=== PATIENT | male | born 1935 | race Caucasian/White ===

== ENCOUNTER 2016-12-30 15:28 | Inpatient (IN) | payer MEDICARE ==
[2016-12-30] VITALS (7 sets, daily range): BP systolic 133–159; BP diastolic 67–88; PULSE 69–81; RESP 18–24; TEMP 96.5–97.8; O2SAT 85–97
[~2016-12-30] VITALS: Ht 180.3 cm; Wt 108.3 kg
[~2016-12-30 15:28] MED LIST: ACIP20TA19 PO; ASPI81 PO; CARV25TA OR; CLOP75 PO; GLUCTAB OR; GLYB1TAB51 PO; HYDR12.56 PO; ISOS30 PO; LORT5TAB PO; Losartan Potassium PO; SIMV80TA OR; ZOLP10TA3 PO
--- NOTE | 2016-12-30 16:11 | PD ---
HPI Chief Complaint: Respiratory Symptoms Time Seen by Provider: 15:59 Travel History International Travel<30 days: No Contact w/Intl Traveler<30days: No Traveled to known affect area: No History of Present Illness HPI 81-year-old male with history of CAD, CABG, CKD, hypertension, hyperlipidemia, sent in by his primary care physician for evaluation of shortness of breath. Patient reports having shortness of breath over the last month, worse over the last 7 days. He initially had cough productive of yellowish sputum, however his cough is currently nonproductive. He was seen by his primary care physician on 12/24 and started on Levaquin, prednisone, and Dulera inhaler. He was also evaluated by his tour manager Dr. Neville, who ordered a chest x-ray that was clear and an echo that showed mild concentric left ventricular hypertrophy with an EF of 64% with no regional wall motion abnormalities. Shortness of breath is at rest, worse with exertion. He denies chest pain. No history of DVT or PE. PFSH Past Medical History Arthritis: Yes Heart Rhythm Problems: Yes Cardiac Catheterization: Yes Cardiovascular Problems: Yes (BYPASS; HI; HTN) High Cholesterol: Yes Congestive Heart Failure: No Diabetes: Yes (DM) GERD: Yes Hypertension: Yes Musculoskeletal: Yes (RT. HIP BURSITIS) Respiratory: No Past Surgical History Abdominal Surgery: Yes (EXPL. LAP) Cardiac Surgery: Yes (CABG X 5 IN 1993) Coronary Artery Bypass Graft: Yes (5 CABG 1993) Genitourinary Surgery: Yes (PENILE IMPLANT) Other Surgery: Yes Social History Alcohol Use: No Tobacco Use: No Substance Use: No Allergies-Medications (Allergen,Severity, Reaction): Coded Allergies: celecoxib (Unverified Allergy, Severe, REFLUX, 11/19/16) zolpidem (Verified Allergy, Severe, "CAUSED TO ACT CRAZY", 12/30/16) furosemide (Verified Allergy, Unknown, 12/30/16) Reported Meds & Prescriptions Reported Meds & Active Scripts Active Reported Oxycodone (Oxycodone HCl) 5 Mg Cap 5 Mg PO Q4H PRN Zithromax Z-Rob (Azithromycin) 250 Mg Dspk 250 Mg PO DIRECTED 500 MG (2 tabs) day 1, then 1 tab days 2-5. Tamsulosin (Tamsulosin HCl) 0.4 Mg Cap 0.4 Mg PO EVENING Promethazine-Codeine Liq 6.25-10 Mg/5 Ml Syrp 10 Ml PO Q6H PRN Nitroglycerin SL (Nitroglycerin) 0.4 Mg Subl 0.4 Mg SL DIRECTED PRN ONE TABLET UNDER THE TONGUE NEEDED FOR CHEST PAIN, MAY REPEAT EVERY FIVE MINUTES FOR A TOTAL OF 3 DOSES OR CALL 911 IF NO RELIEF Multiple Vitamin 1 Tab 1 Tab PO HS Metformin (Metformin HCl) 1,000 Mg Tab 1,000 Mg PO BIDPC With meals Losartan (Losartan Potassium) 50 Mg Tab 50 Mg PO HS Krill Oil Magnolia-3 500 mg (Krill Oil) 500 Mg-115 Mg-30 Mg-64 Mg-167 Mg Cap 1 Tab PO DAILY Isosorbide Mononitrate ER (Isosorbide Mononitrate) 60 Mg Tab 60 Mg PO BID Hydrocodone-Acetaminophen 5-325 mg Tab 1 Tab PO Q6H PRN Hydrochlorothiazide 12.5 Mg Cap 12.5 Mg PO HS Glucosamine-Chondroitin 500-400 Mg Tab 1 Tab PO DAILY Glimepiride 4 Mg Tab 4 Mg PO BIDAC Garlic Oil 1000 (Garlic) 1,000 Mg Cap 1 Cap PO HS Dulera 120 Act Inh (Mometasone-Formoterol 120 Act Inh) 200-5 Mcg/Act Inh 2 Puff INH BID Culturelle (Lactobacillus Rhamnosus (GG)) 10 Billion Cell Cap 1 Cap PO DAILY [Cranberry] 500 Mg PO DAILY Coreg (Carvedilol) 25 Mg Tab 25 Mg PO BID Coq-10 Tr (Coenzyme Q10 (Ubidecarenone)) 100 Mg Cap 2 Tab PO EVENING Clopidogrel (Clopidogrel Bisulfate) 75 Mg Tab 75 Mg PO HS Belsomra (Suvorexant) 20 Mg Tab 20 Mg PO HS Atorvastatin (Atorvastatin Calcium) 80 Mg Tab 80 Mg PO HS Aspirin EC (Aspirin) 81 Mg Tabdr 81 Mg PO HS Aciphex (Rabeprazole Sodium) 20 Mg Tab 20 Mg PO BID PRN Review of Systems Except as stated in HPI: all other systems reviewed are Neg Physical Exam Narrative GENERAL: Well-developed, well-nourished, awake, alert, slightly tachypneic, speaking full sentences. SKIN: Focused skin assessment warm/dry. HEAD: Atraumatic. Normocephalic. EYES: Pupils equal and round. No scleral icterus. No injection or drainage. ENT: Mucous membranes pink and moist. NECK: Trachea midline. No JVD. CARDIOVASCULAR: Regular rate and rhythm. No murmur appreciated. RESPIRATORY: No accessory muscle use. Slightly tachypneic. Speaking full sentences. Coarse breath sounds throughout the right lung ulloa. No wheezes. Breath sounds equal bilaterally. GASTROINTESTINAL: Abdomen soft, non-tender, nondistended. Hepatic and splenic margins not palpable. MUSCULOSKELETAL: No obvious deformities. No clubbing. No cyanosis. Mild bilateral lower extremity edema. NEUROLOGICAL: Awake and alert. No obvious cranial nerve deficits. Motor grossly within normal limits. Normal speech. PSYCHIATRIC: Appropriate mood and affect; insight and judgment normal. Data Data Last Documented VS Vital Signs Date Time Temp Pulse Resp B/P (MAP) Pulse Ox O2 Delivery O2 Flow Rate FiO2 12/30/16 17:50 74 22 144/67 (92) 96 Nasal Cannula 2.00 12/30/16 15:58 97.8 Orders Orders Complete Blood Count With Diff (12/30/16 16:04) Comprehensive Metabolic Panel (12/30/16 16:04) B-Type Natriuretic Peptide (12/30/16 16:04) Act Partial Throm Time (Ptt) (12/30/16 16:04) Prothrombin Time / Inr (Pt) (12/30/16 16:04) Ckmb (Isoenzyme) Profile (12/30/16 16:04) Troponin I (12/30/16 16:04) Blood Culture (12/30/16 16:04) Iv Access Insert/Monitor (12/30/16 16:04) Ecg Monitoring (12/30/16 16:04) Oximetry (12/30/16 16:04) Oxygen Administration (12/30/16 16:04) Chest, Single Ap (12/30/16 16:04) Sodium Chloride 0.9% Flush (Ns Flush) (12/30/16 16:15) Influenzae A/B Antigen (12/30/16 16:04) CKMB (12/30/16 16:18) CKMB% (12/30/16 16:18) D-Dimer (12/30/16 17:52) Us Leg Venous Doppler Bilat (12/30/16 ) Methylprednisolone So Succ Inj (Solumedr (12/30/16 19:30) Duoneb Q15min X 3 Doses (12/30/16 19:30) Labs Laboratory Tests Test 12/30/16 15:40 12/30/16 16:18 D-Dimer Quantitative (PE/DVT) 0.32 MG/L FEU White Blood Count 8.9 TH/MM3 Red Blood Count 5.22 MIL/MM3 Hemoglobin 13.6 GM/DL Hematocrit 42.4 % Mean Corpuscular Volume 81.2 FL Mean Corpuscular Hemoglobin 26.0 PG Mean Corpuscular Hemoglobin Concent 32.0 % Red Cell Distribution Width 13.4 % Platelet Count 157 TH/MM3 Mean Platelet Volume 9.5 FL Neutrophils (%) (Auto) 75.8 % Lymphocytes (%) (Auto) 15.9 % Monocytes (%) (Auto) 5.6 % Eosinophils (%) (Auto) 2.2 % Basophils (%) (Auto) 0.5 % Neutrophils # (Auto) 6.8 TH/MM3 Lymphocytes # (Auto) 1.4 TH/MM3 Monocytes # (Auto) 0.5 TH/MM3 Eosinophils # (Auto) 0.2 TH/MM3 Basophils # (Auto) 0.0 TH/MM3 CBC Comment DIFF FINAL Differential Comment Prothrombin Time 11.2 SEC Prothromb Time International Ratio 1.0 RATIO Activated Partial Thromboplast Time 32.2 SEC Blood Urea Nitrogen 24 MG/DL Creatinine 1.40 MG/DL Random Glucose 177 MG/DL Total Protein 6.9 GM/DL Albumin 3.7 GM/DL Calcium Level 8.4 MG/DL Alkaline Phosphatase 69 U/L Aspartate Amino Transf (AST/SGOT) 17 U/L Alanine Aminotransferase (ALT/SGPT) 23 U/L Total Bilirubin 0.6 MG/DL Sodium Level 140 MEQ/L Potassium Level 4.0 MEQ/L Chloride Level 102 MEQ/L Carbon Dioxide Level 30.3 MEQ/L Anion Gap 8 MEQ/L Estimat Glomerular Filtration Rate 49 ML/MIN Total Creatine Kinase 101 U/L Creatine Kinase MB 3.2 NG/ML Troponin I 0.02 NG/ML B-Type Natriuretic Peptide 117 PG/ML [facility] Medical Decision Making Medical Screen Exam Complete: Yes Emergency Medical Condition: Yes Medical Record Reviewed: Yes Interpretation(s) EKG: Sinus, rate 78 with frequent PVCs and bigeminy, RBBB, LAFB, nonspecific inferior T waves Differential Diagnosis ACS, PE, pulmonary edema, pneumonia, bronchitis, pneumothorax Narrative Course Initial vital signs show heart rate 77, blood pressure 133/71, pulse ox 85% on room air, oral temp of 97.8F. CBC is unremarkable. CMP is remarkable for BUN 24, creatinine 1.4, GFR 49 which is around his baseline, random glucose 177. Troponin is 0.02. BNP is 117. Influenza is negative. Chest x-ray: Stable postsurgical features, no acute abnormality or significant interval change. CT pulmonary angiogram was ordered, however when the patient was laid flat on the table she became short of breath and stated that he was not able to tolerate the exam. He understands the risks of refusing this exam. D-dimer and bilateral lower extremity duplex ordered at this time. D-dimer is negative at 0.32. Bilateral lower extremity duplex is negative for DVT. Case discussed with on-call [facility] hospitalist Dr. Boss who will admit the patient to his service for further treatment and evaluation of hypoxia and dyspnea. Plan is to give him 3 DuoNeb treatments and IV Solu-Medrol here in the emergency department. Patient and the patient's significant other were made aware of all findings and plan for admission. Diagnosis Primary Impression: Hypoxia Additional Impression: Dyspnea Qualified Codes: R06.00 - Dyspnea, unspecified Admitting Information Admitting Physician Requests: Admit Thien Friend MD Dec 30, 2016 16:11
[2016-12-30] MEDS ORDERED: SODIUM CHLORIDE 0.9% FLUSH 10 ML FLUSH IVF PRN (16:15)
[2016-12-30 16:38] LABS: AUTOMATED NEUTROPHIL # 6.8 TH/MM3 (1.8-7.7); BASOPHIL % 0.5 % (0.0-2.0); EOSINOPHIL # 0.2 TH/MM3 (0-0.4); EOSINOPHIL % 2.2 % (0.0-4.0); HEMATOCRIT 42.4 % (39.0-51.0); HEMO FLAGS DIFF FINAL; LYMPH % 15.9 % (9.0-44.0); LYMPHOCYTE # 1.4 TH/MM3 (1.0-4.8); MEAN CELL VOLUME 81.2 FL (80.0-100.0); MONO % 5.6 % (0.0-8.0); NEUT % 75.8 % (16.0-70.0); PLATELET COUNT 157 TH/MM3 (150-450); RED BLOOD COUNT 5.22 MIL/MM3 (4.50-5.90); RED CELL DISTRIBUTION WIDTH 13.4 % (11.6-17.2); WHITE BLOOD COUNT 8.9 TH/MM3 (4.0-11.0)
[2016-12-30] MEDS ORDERED: HYDR-3516 PO (16:40)
[2016-12-30] MEDS ORDERED: LOSA50TA PO (16:40)
[2016-12-30] MEDS ORDERED: KRIL1CAP10 PO (16:40)
[2016-12-30] MEDS ORDERED: ATOR1TAB18 PO (16:40)
[2016-12-30] MEDS ORDERED: GARL1000 PO (16:40)
[2016-12-30] MEDS ORDERED: ASPI81TA11 PO (16:40)
[2016-12-30] MEDS ORDERED: OXYC1CAP PO (16:40)
[2016-12-30] MEDS ORDERED: MULTTAB67 PO (16:40)
[2016-12-30] MEDS ORDERED: ZITHTAB PO (16:40)
[2016-12-30] MEDS ORDERED: COQ-100C5 PO (16:40)
[2016-12-30] MEDS ORDERED: SUVO1TAB4 PO (16:40)
[2016-12-30] MEDS ORDERED: PROM6.256 PO (16:40)
[2016-12-30] MEDS ORDERED: TAMS0.4C4 PO (16:40)
[2016-12-30] MEDS ORDERED: ACIP20TA6 PO (16:40)
[2016-12-30] MEDS ORDERED: GLUC500T4 PO (16:40)
[2016-12-30] MEDS ORDERED: GLIM4TAB PO (16:40)
[2016-12-30] MEDS ORDERED: CRANPOW2 PO (16:40)
[2016-12-30] MEDS ORDERED: ISOS60TA PO ×2 (16:40→20:19)
[2016-12-30] MEDS ORDERED: CULT10CA4 PO (16:40)
[2016-12-30] MEDS ORDERED: NITR1SUB3 SL (16:40)
[2016-12-30] MEDS ORDERED: DULE200A INH (16:40)
[2016-12-30] MEDS ORDERED: CORE25TA PO (16:40)
[2016-12-30] MEDS ORDERED: HYDR12.57 PO (16:40)
[2016-12-30] MEDS ORDERED: METF1000 PO (16:40)
[2016-12-30] MEDS ORDERED: CLOP75TA PO (16:40)
[2016-12-30 16:48] LABS: CHLORIDE 102 MEQ/L (98-107); SODIUM (NA) 140 MEQ/L (136-145)
[2016-12-30 16:52] LABS: ANION GAP 8 MEQ/L (5-15); APTT (PATIENT) 32.2 SEC (24.3-30.1); BICARBONATE 30.3 MEQ/L (21.0-32.0); BLOOD UREA NITROGEN 24 MG/DL (7-18); PROTHROMBIN TIME - PATIENT 11.2 SEC (9.8-11.6)
[2016-12-30 16:55] LABS: ALT (GPT) 23 U/L (12-78); AST (GOT) 17 U/L (15-37); GLOMERULAR FILTRATION RATE 49 ML/MIN (>89)
[2016-12-30 16:57] LABS: TOTAL BILIRUBIN ADULT 0.6 MG/DL (0.2-1.0)
[2016-12-30 16:58] LABS: ALKALINE PHOSPHATASE 69 U/L (45-117); CREATINE KINASE 101 U/L (39-308)
[2016-12-30 17:10] LABS: CKMB 3.2 NG/ML (0.5-3.6)
--- NOTE | 2016-12-30 17:11 | RADRPT ---
EXAM DATE/TIME: 12/30/2016 16:19 [facility] COMPARISON: CHEST PA & LAT, February 09, 2014, 23:02. INDICATIONS : Shortness of breath. MEDICAL HISTORY : Hypertension. Myocardial infarction. SURGICAL HISTORY : CABG. ENCOUNTER: Initial ACUITY: 1 day PAIN SCORE: 0/10 LOCATION: Bilateral chest FINDINGS: Stable median sternotomy wires and postsurgical changes of prior CABG. Lungs are slightly hypoaerated with mild interstitial prominence. Cardiomediastinal contours are within normal limits given portabl e technique. Bony thorax is intact. CONCLUSION: 1. Stable postsurgical features 2. No acute abnormality or significant interval change. Tray Lara MD on December 30, 2016 at 17:09 Board Certified Radiologist. This report was verified electronically.
--- NOTE | 2016-12-30 19:08 | RADRPT ---
EXAM DATE/TIME: 12/30/2016 18:42 [facility] COMPARISON: No previous studies available for comparison. INDICATIONS : Shortness of breath. Bilateral leg swelling. MEDICAL HISTORY : [place]. HTN. CAD. Hypercholesterol. Diabetic. SURGICAL HISTORY : CABG. Cardiac catheterization. Exploratory lap. Penile implant. ENCOUNTER: Initial ACUITY: 1 month PAIN SCORE: 4/10 LOCATION: Bilateral leg. TECHNIQUE: Venous ultrasound of the left and right leg was performed from the inguinal ligament to the proximal calf. Real-time, color Doppler and spectral tracing, compression and augmentation techniques were us ed. FINDINGS: RIGHT LEG: There is normal compressibility of the deep venous system from the inguinal region to the proximal ca lf. No echogenic clot is seen in the lumen of the common femoral, femoral, popliteal, and posterior tibial veins. There is a normal response of the venous system to proximal and distal augmentation an d respiration. LEFT LEG: There is normal compressibility of the deep venous system from the inguinal region to the proximal ca lf. No echogenic clot is seen in the lumen of the common femoral, femoral, popliteal, and posterior tibial veins. There is a normal response of the venous system to proximal and distal augmentation an d respiration. CONCLUSION: No DVT is identified with either lower extremity. Kenney Franklin MD on December 30, 2016 at 19:07 Board Certified Radiologist. This report was verified electronically.
[2016-12-30] MEDS ORDERED: methylPREDNISolone SOD SUCC 125 MG/2 ML VIAL IV PUSH ONE (19:30)
[2016-12-30] MEDS: RESP: ALBUTEROL 2.5 MG/IPRATROPIUM 0.5 MG NEB (SCH) INH ×2 (19:36→19:37)
[2016-12-30] MEDS ORDERED: COENZYME Q10 PO SCH (20:15)
[2016-12-30] MEDS ORDERED: ACETAMINOPHEN/HYDROcodone 325 MG/5 MG TAB PO PRN (20:15)
[2016-12-30] MEDS ORDERED: PROMETHAZINE/CODEINE 6.25 MG/10 MG/5 ML CUP PO PRN (20:15)
[2016-12-30] MEDS ORDERED: BELSOMRA 20 MG PO SCH (21:00)
[2016-12-30] MEDS ORDERED: ENOXAPARIN SODIUM 40 MG/0.4 ML SYRINGE SQ SCH (21:00)
[2016-12-30] MEDS ORDERED: ENOXAPARIN SODIUM 30 MG/0.3 ML SYRINGE SQ SCH (21:00)
[2016-12-30] MEDS ORDERED: PANTOPRAZOLE SOD 40 MG DELAYED RELEASE TAB PO ONE (21:00)
--- NOTE | 2016-12-30 22:06 | MH ---
cc: FLORENCIA MARTINEZ M.D. DATE OF ADMISSION 12/30/2016 ADMITTING DIAGNOSES 1. Persistent bronchitis. 2. Hypoxia. 3. Possible underlying chronic obstructive pulmonary disease. 4. Coronary artery disease with prior myocardial infarction in 2013 and prior coronary artery bypass grafting. 5. Type 2 diabetes mellitus. 6. Stage III chronic kidney disease. 7. Hypertension. 8. Hyperlipidemia. 9. Gastroesophageal reflux disease. 10. Benign prostatic hypertrophy. 11. Aortic sclerosis without stenosis on 2-D echocardiogram 11/04/2016. 12. Osteoarthritis. 13. Lumbar disc disease - stenosis. PERTINENT HISTORY This is a pleasant 86-year-old white male started two weeks ago with a cough, slight sore throat, maybe slight runny nose. The had had some sort of a recent infection as well. He was put on some Zithromax that he took for about five days but did not get any improvement. He saw his primary care physician Dr. Smalls around the 24 of December and was put on Levaquin. Was given a Medrol Dosepak but he only took it for one day because of GI side effects. He was using some Dulera inhaler two puffs twice a day that his had had and his doctor gave him some as well. He presented to our office today and his sats were in the 80s. He was still coughing. He was sent here for further evaluation of his hypoxia. He has not smoked in several years but did smoke three packs a day for 30 years prior to quitting. He has never been diagnosed with any asthma, COPD or pneumonia. He has never had congestive heart failure. He states that he does sleep sitting up in a chair but has been doing this for a long time. He states that it is because he has problems with his arthritis. Here in the last week or so he would get some shortness of breath when he would lay flat. In the emergency department they were going to do a CTA of the chest, however, he declined that because when he went to lay down he would get short of breath. He did have a D-dimer that was normal and an Doppler venous ultrasound of both lower extremities that was negative for any DVT. His BNP was not at a significantly elevated level. He is being admitted for oxygen therapy. We are going to give him some DuoNeb treatments and some IV steroids. He has not really responded any to Levaquin or Zithromax so it is possible if he has an underlying infection it is likely to be viral, so I am not going to put him on any antibiotic at this time. PAST MEDICAL HISTORY 1. He has coronary artery disease with the coronary artery bypass grafting in 1993. 2. He had a cardiac catheterization on 02/10/2014 that showed patent MEDRANO and right internal mammary graft to the LAD and right coronary artery, respectively. He had occluded saphenous vein Y grafts to the ramus intermedius, diagonal branch and posterior ventricular branches of the circumflex. He has been followed by Dr. Negron and just treated with medical management for any angina. He has had no congestive heart failure. 3. He has type 2 diabetes mellitus and takes oral agents for this. 4. He has hypertension. 5. Hyperlipidemia. 6. Gastroesophageal reflux disease. 7. He has benign prostatic hypertrophy. 8. Erectile dysfunction. 9. Osteoarthritis. 10. He has had lumbar disc disease and stenosis. 11. He had a colonoscopy on 11/14/2014 with a polyp and an EGD that was normal on 11/14/2014. He denies any prior lung disease. No stroke or seizures. PAST SURGICAL HISTORY 1. He had an exploratory laparotomy for possible small bowel obstruction but when they opened him up they did not find anything significant. 2. He has had coronary artery bypass as mentioned. 3. Colonoscopy and EGD as mentioned. ALLERGIES HE HAD SOME ABDOMINAL PAIN WITH CELEBREX. IT IS WRITTEN DOWN THAT HE HAS A PROBLEM WITH RANEXA. MEDICATIONS He is on: 1. Atorvastatin 80 milligrams daily. 2. Aspirin 81 milligrams daily. 3. Plavix 75 milligrams daily. 4. Co-Q10 200 micrograms daily. 5. Coreg ( carvedilol ) 25 milligrams twice a day. 6. He has been on Dulera inhaler 200 - 5 two puffs twice a day. 7. Glimepiride 4 milligrams twice a day. 8. Metformin 1000 milligrams twice a day. 9. Hydrochlorothiazide 12.5 milligrams once a day. 10. Isosorbide mononitrate extended release 60 milligrams once a day. 11. Losartan 50 milligrams, he takes one-half twice a day. 12. Tamsulosin 0.4 milligrams daily. 13. Aciphex 20 milligrams daily. 14. He takes Belsomra 10 milligrams at night for sleep. 15. He has hydrocodone / APAP 5/500 one as needed for pain. He does not take it daily. 16. He uses Krill oil 500 milligrams daily. 17. Glucosamine daily. 18. Multivitamin daily. FAMILY HISTORY His mother at 67 of brain cancer. Father at 51 of stomach cancer. Brother had colon cancer. 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 He is . He does not use alcohol. He quit smoking several years ago, smoked up to three packs a day for 30 years. REVIEW OF SYSTEMS GENERAL: No fever or chills. HEENT: No headache. He has just had minimal drainage from his nose occasionally. Just minimal sore throat. No trouble swallowing. CARDIOVASCULAR: No chest pain. No palpitations. He does get some shortness of breath when he lays flat. PULMONARY: He has a cough as mentioned. Occasional wheezing as well. GASTROINTESTINAL: No current nausea or vomiting. He did get some loose bowel movements with the antibiotics. No constipation or rectal bleeding. GENITOURINARY: He gets up two to three times a night to urinate. No dysuria. EXTREMITIES: He has chronic swelling of both feet which he has had for a long time. He gets arthritis in his hips and shoulders and some low back pain at times. SKIN: Without rash. NEUROLOGIC: No focal weakness, sensory loss or confusion. PHYSICAL EXAMINATION GENERAL: Pleasant obese, white male in no acute distress. VITAL SIGNS: His blood pressure has ranged from 133/71 to 155/84. His O2 saturation on room air when he first came in to the emergency department was 85%. It has run around 95-97% on 2 liters. His pulse has been in the 70s and regular. Respiratory rate 18-24. HEENT: Tympanic membranes are clear. Nose negative. Mouth without inflammation or lesion. NECK: Without bruit. No JVD. CARDIOVASCULAR: Heart regular rate and rhythm with no obvious murmur. LUNGS: He just has some slight coarse rhonchi that I hear primarily in the left base. No rales. No wheezes. ABDOMEN: Soft. Obese. Nontender. EXTREMITIES: He has some 1+ edema both ankles. No calf tenderness. SKIN: Without rash. NEUROLOGIC: Alert and oriented times three. Cranial nerves intact. Motor and sensory intact. LABORATORY DATA His BUN is 24. Creatinine 1.4. GFR 49. This apparently is around his baseline. AST, ALT, alkaline phosphatase, CK, CKMB, troponin normal. BNP was 117. Total protein and albumin normal. Potassium is 4.0, chloride 102, sodium 140. D-dimer was normal at 0.32. INR was 1.0. White count was normal at 8.9 with a hemoglobin of 13.6, platelets are 157,000. IMAGING A chest x-ray showed no acute process. Doppler venous ultrasound of the lower extremities showed no deep venous thrombosis. ASSESSMENT As noted. PLAN I am going to put him on DuoNeb nebulizer treatments and some IV Solu-Medrol. I am going to consult pulmonary for their opinion. I ordered some pulmonary function testing to look for any underlying COPD in view of his long smoking history and hypoxia. We will just put him on a low dose of Lovenox, he is already on for DVT prophylaxis. He is already on aspirin and Plavix for his coronary artery disease. He will be maintained on his medications for now. MD ELEUTERIO Carrillo/KASSIDY /8:22 PM /8:56 PM
[2016-12-30] MEDS: ATORVASTATIN 40 MG TAB PO SCH (22:45)
[2016-12-30] MEDS: LOSARTAN 50 MG TAB PO SCH (22:45)
[2016-12-30] MEDS: HYDROCHLOROTHIAZIDE 12.5 MG CAP PO SCH (22:45)
[2016-12-30] MEDS: MULTIVITAMIN TAB PO SCH (22:45)
[2016-12-30] MEDS: ASPIRIN EC 81 MG TABEC PO SCH (22:46)
[2016-12-30] MEDS: CLOPIDOGREL 75 MG TAB PO SCH (22:46)
[2016-12-30] MEDS: CARVEDILOL 12.5 MG TAB PO SCH (22:46)
[2016-12-31] VITALS (7 sets, daily range): BP systolic 123–170; BP diastolic 70–93; PULSE 73–88; RESP 18–22; TEMP 95.3–97; O2SAT 93–95
[2016-12-31] MEDS: NITROGLYCERIN 0.4 MG SL 25 TABS/BTL SL PRN ×3 (00:24→19:28)
[2016-12-31] MEDS: methylPREDNISolone SOD SUCC 40 MG/1 ML VIAL IV PUSH SCH ×3 (04:08→20:19)
[2016-12-31 06:53] LABS: POTASSIUM 4.1 MEQ/L (3.5-5.1)
--- NOTE | 2016-12-31 06:54 | HHI.PR ---
Subjective Remarks He states his breathing is a little better. Still has cough. Objective Vitals Vital Signs Date Time Temp Pulse Resp B/P (MAP) Pulse Ox O2 Delivery O2 Flow Rate FiO2 12/31/16 04:00 96.7 73 18 148/81 (103) 93 12/31/16 04:00 96.7 73 18 148/81 (103) 93 12/30/16 21:11 96.5 81 20 159/88 (111) 95 12/30/16 20:50 12/30/16 20:33 74 18 153/82 (105) 95 Nasal Cannula 2.00 12/30/16 19:35 95 Nasal Cannula 2.00 12/30/16 19:20 69 18 97 Nasal Cannula 2.00 12/30/16 19:20 69 18 155/84 (107) 97 Nasal Cannula 2.00 12/30/16 17:50 74 22 144/67 (92) 96 Nasal Cannula 2.00 12/30/16 16:29 24 95 Nasal Cannula 2.00 12/30/16 16:25 95 Nasal Cannula 2.00 12/30/16 16:22 74 24 95 Nasal Cannula 2.00 12/30/16 15:58 97.8 77 24 133/71 (91) 85 Result Diagram: 12/30/16 1618 12/30/16 1618 Other Results Laboratory Tests Test 12/30/16 15:40 12/30/16 16:18 12/31/16 04:55 D-Dimer Quantitative (PE/DVT) 0.32 MG/L FEU White Blood Count 8.9 TH/MM3 Red Blood Count 5.22 MIL/MM3 Hemoglobin 13.6 GM/DL Hematocrit 42.4 % Mean Corpuscular Volume 81.2 FL Mean Corpuscular Hemoglobin 26.0 PG Mean Corpuscular Hemoglobin Concent 32.0 % Red Cell Distribution Width 13.4 % Platelet Count 157 TH/MM3 Mean Platelet Volume 9.5 FL Neutrophils (%) (Auto) 75.8 % Lymphocytes (%) (Auto) 15.9 % Monocytes (%) (Auto) 5.6 % Eosinophils (%) (Auto) 2.2 % Basophils (%) (Auto) 0.5 % Neutrophils # (Auto) 6.8 TH/MM3 Lymphocytes # (Auto) 1.4 TH/MM3 Monocytes # (Auto) 0.5 TH/MM3 Eosinophils # (Auto) 0.2 TH/MM3 Basophils # (Auto) 0.0 TH/MM3 CBC Comment DIFF FINAL Differential Comment Prothrombin Time 11.2 SEC Prothromb Time International Ratio 1.0 RATIO Activated Partial Thromboplast Time 32.2 SEC Blood Urea Nitrogen 24 MG/DL Creatinine 1.40 MG/DL Random Glucose 177 MG/DL Total Protein 6.9 GM/DL Albumin 3.7 GM/DL Calcium Level 8.4 MG/DL Alkaline Phosphatase 69 U/L Aspartate Amino Transf (AST/SGOT) 17 U/L Alanine Aminotransferase (ALT/SGPT) 23 U/L Total Bilirubin 0.6 MG/DL Sodium Level 140 MEQ/L Potassium Level 4.0 MEQ/L Chloride Level 102 MEQ/L Carbon Dioxide Level 30.3 MEQ/L Anion Gap 8 MEQ/L Estimat Glomerular Filtration Rate 49 ML/MIN Total Creatine Kinase 101 U/L Creatine Kinase MB 3.2 NG/ML Troponin I 0.02 NG/ML B-Type Natriuretic Peptide 117 PG/ML Imaging Last Impressions Chest X-Ray 12/30/16 1604 Signed Impressions: Service Date/Time: Friday, December 30, 2016 16:19 - CONCLUSION: 1. Stable postsurgical features 2. No acute abnormality or significant interval change. Tray Lara MD Lower Extremity Ultrasound 12/30/16 0000 Signed Impressions: Service Date/Time: Friday, December 30, 2016 18:42 - CONCLUSION: No DVT is identified with either lower extremity. Kenney Franklin MD Objective Remarks Exam: Pleasant white male in no distress. HEENT: Pupils equal, no scleral icterus, mouth negative Neck :No JVD Lungs: rhonchi in the bases Heart: RRR Abdomen: Soft, nontender Extremities: 1 + edema (chronic) Neuro: alert, oriented A/P Assessment and Plan Assessment: --Hypoxia--stable on oxygen --Persistent bronchitis --Possible underlying COPD in view of his 90 pack year smoking history prior to quitting --Coronary artery disease with prior CABG and some occluded grafts on cath done Mar 2014 --Hyperlipidemia --Hypertension --Type 2 diabetes mellitus --Stage 3 CKD --GERD --Osteoarthritis Plan: --Continue Duonebs treatments and IV Solu-Medrol --Pulmonary consulted --He declined CTA of the chest and VQ scan last night in the ER --PFT's ordered to assess for COPD --Will get case management consult because he will need a nebulizer and oxygen when he is discharged. Yoni Boss MD Dec 31, 2016 06:54
[2016-12-31 06:59] LABS: BICARBONATE 29.7 MEQ/L (21.0-32.0)
[2016-12-31] MEDS: GLIMEPIRIDE 4 MG TAB PO SCH ×2 (08:10→16:55)
[2016-12-31] MEDS: ISOSORBIDE MONONITRATE 60 MG TAB PO SCH (08:10)
[2016-12-31] MEDS ORDERED: NON-FORMULARY DRUG (Glucosamine-Chondroitin 1 TAB) PO SCH (09:00)
[2016-12-31] MEDS ORDERED: KRILL OIL PO SCH (09:00)
[2016-12-31] MEDS: TAMSULOSIN HCL 0.4 MG CAP PO SCH (09:01)
[2016-12-31] MEDS: metFORMIN HCL 500 MG TAB PO SCH ×2 (09:01→18:19)
[2016-12-31] MEDS: CARVEDILOL 12.5 MG TAB PO SCH ×2 (09:01→20:18)
[2016-12-31] MEDS: RESP: ALBUTEROL 2.5 MG/IPRATROPIUM 0.5 MG NEB (SCH) NEB ×3 (09:30→20:56)
--- NOTE | 2016-12-31 13:42 | EKG ---
Date Performed: 12/30/2016 Time Performed: 15:39:30 PTAGE: 81 years EKG: Sinus rhythm WITH FREQUENT VENTRICULAR PREMATURE COMPLEXES IN A BIGEMINAL PATTERN RIGHT BUNDLE BRANCH BLOCK LEFT ANTERIOR FASCICULAR BLOCK ABNORMAL ECG INTERPRETATION BASED ON A DEFAULT AGE OF 41 YEARS PREVIOUS TRACING 02/11/2014 Ventricular bigeminy is new since the prior tracing. DOCTOR: Melvin Ma Interpretating Date/Time 12/31/2016 13:52:06
[2016-12-31] MEDS: MULTIVITAMIN TAB PO SCH (20:17)
[2016-12-31] MEDS: ATORVASTATIN 40 MG TAB PO SCH (20:17)
[2016-12-31] MEDS: ASPIRIN EC 81 MG TABEC PO SCH (20:17)
[2016-12-31] MEDS: HYDROCHLOROTHIAZIDE 12.5 MG CAP PO SCH (20:18)
[2016-12-31] MEDS: LOSARTAN 50 MG TAB PO SCH (20:18)
[2016-12-31] MEDS: ENOXAPARIN SODIUM 40 MG/0.4 ML SYRINGE SQ SCH (20:19)
[2016-12-31] MEDS: CLOPIDOGREL 75 MG TAB PO SCH (20:19)
[2017-01-01] VITALS (9 sets, daily range): BP systolic 119–162; BP diastolic 75–88; PULSE 65–86; RESP 18–22; TEMP 95.8–97.8; O2SAT 93–97
[2017-01-01] MEDS: methylPREDNISolone SOD SUCC 40 MG/1 ML VIAL IV PUSH SCH ×2 (04:24→11:48)
[2017-01-01] MEDS: ISOSORBIDE MONONITRATE 60 MG TAB PO SCH (06:17)
[2017-01-01] MEDS: GLIMEPIRIDE 4 MG TAB PO SCH ×2 (06:17→15:56)
--- NOTE | 2017-01-01 07:19 | HHI.PR ---
Subjective Remarks He states his breathing is a little better. Pulmonary yet to see the patient yet. Objective Vitals Vital Signs Date Time Temp Pulse Resp B/P (MAP) Pulse Ox O2 Delivery O2 Flow Rate FiO2 01/01/17 04:00 97.8 68 18 162/78 (106) 94 01/01/17 00:00 95.8 86 22 154/86 (108) 94 12/31/16 21:00 95 Nasal Cannula 2.00 12/31/16 20:00 95.3 84 20 170/93 (118) 94 12/31/16 20:00 88 12/31/16 19:28 94 Nasal Cannula 2.00 12/31/16 16:53 2.00 12/31/16 16:00 97.0 75 22 130/75 (93) 94 12/31/16 12:00 97.0 73 22 123/70 (87) 94 12/31/16 09:33 94 Nasal Cannula 2.00 12/31/16 08:00 95.7 86 22 151/82 (105) 93 Result Diagram: 12/30/16 1618 12/31/16 0455 Other Results Laboratory Tests Test 12/30/16 15:40 12/30/16 16:18 12/31/16 04:55 D-Dimer Quantitative (PE/DVT) 0.32 MG/L FEU White Blood Count 8.9 TH/MM3 Red Blood Count 5.22 MIL/MM3 Hemoglobin 13.6 GM/DL Hematocrit 42.4 % Mean Corpuscular Volume 81.2 FL Mean Corpuscular Hemoglobin 26.0 PG Mean Corpuscular Hemoglobin Concent 32.0 % Red Cell Distribution Width 13.4 % Platelet Count 157 TH/MM3 Mean Platelet Volume 9.5 FL Neutrophils (%) (Auto) 75.8 % Lymphocytes (%) (Auto) 15.9 % Monocytes (%) (Auto) 5.6 % Eosinophils (%) (Auto) 2.2 % Basophils (%) (Auto) 0.5 % Neutrophils # (Auto) 6.8 TH/MM3 Lymphocytes # (Auto) 1.4 TH/MM3 Monocytes # (Auto) 0.5 TH/MM3 Eosinophils # (Auto) 0.2 TH/MM3 Basophils # (Auto) 0.0 TH/MM3 CBC Comment DIFF FINAL Differential Comment Prothrombin Time 11.2 SEC Prothromb Time International Ratio 1.0 RATIO Activated Partial Thromboplast Time 32.2 SEC Blood Urea Nitrogen 24 MG/DL 27 MG/DL Creatinine 1.40 MG/DL 1.20 MG/DL Random Glucose 177 MG/DL 259 MG/DL Total Protein 6.9 GM/DL Albumin 3.7 GM/DL Calcium Level 8.4 MG/DL 8.8 MG/DL Alkaline Phosphatase 69 U/L Aspartate Amino Transf (AST/SGOT) 17 U/L Alanine Aminotransferase (ALT/SGPT) 23 U/L Total Bilirubin 0.6 MG/DL Sodium Level 140 MEQ/L 139 MEQ/L Potassium Level 4.0 MEQ/L 4.1 MEQ/L Chloride Level 102 MEQ/L 102 MEQ/L Carbon Dioxide Level 30.3 MEQ/L 29.7 MEQ/L Anion Gap 8 MEQ/L 7 MEQ/L Estimat Glomerular Filtration Rate 49 ML/MIN 58 ML/MIN Total Creatine Kinase 101 U/L Creatine Kinase MB 3.2 NG/ML Troponin I 0.02 NG/ML B-Type Natriuretic Peptide 117 PG/ML Respiratory walk test yesterday done and his O2 sat was 88% at rest so the walk portion was not done. Imaging Last Impressions Chest X-Ray 12/30/16 1604 Signed Impressions: Service Date/Time: Friday, December 30, 2016 16:19 - CONCLUSION: 1. Stable postsurgical features 2. No acute abnormality or significant interval change. Tray Lara MD Lower Extremity Ultrasound 12/30/16 0000 Signed Impressions: Service Date/Time: Friday, December 30, 2016 18:42 - CONCLUSION: No DVT is identified with either lower extremity. Kenney Franklin MD Objective Remarks Exam: Pleasant white male in no distress. HEENT: Pupils equal, no scleral icterus, mouth negative Neck :No JVD Lungs: rhonchi in the bases Heart: RRR Abdomen: Soft, nontender Extremities: 1 + edema (chronic) Neuro: alert, oriented A/P Assessment and Plan Assessment: --Hypoxia--stable on oxygen --Persistent bronchitis --Possible underlying COPD in view of his 90 pack year smoking history prior to quitting --Coronary artery disease with prior CABG and some occluded grafts on cath done Mar 2014 --Hyperlipidemia --Hypertension --Type 2 diabetes mellitus --Stage 3 CKD --GERD --Osteoarthritis Plan: --Continue Duonebs treatments and IV Solu-Medrol --Pulmonary consulted but yet to see --He declined CTA of the chest and VQ scan last night in the ER --He will need a nebulizer and oxygen when he is discharged. Yoni Boss MD Jan 01, 2017 07:19
[2017-01-01] MEDS: RESP: ALBUTEROL 2.5 MG/IPRATROPIUM 0.5 MG NEB (SCH) NEB ×3 (07:41→20:03)
[2017-01-01] MEDS: TAMSULOSIN HCL 0.4 MG CAP PO SCH (08:40)
[2017-01-01] MEDS: metFORMIN HCL 500 MG TAB PO SCH ×2 (08:41→17:48)
[2017-01-01] MEDS: CARVEDILOL 12.5 MG TAB PO SCH ×2 (08:41→21:13)
--- NOTE | 2017-01-01 16:26 | MB ---
cc: MARSHA MORRIS DATE OF CONSULTATION 01/01/[address] Yoni Boss REASON FOR CONSULTATION Pulmonary management. HISTORY OF THE PRESENT ILLNESS Mr. Elliott is an 81-year-old male with a history of coronary artery disease status post CABG, hypertension, borderline diabetes mellitus. The patient has been having worsening of his shortness of breath for at least 2 weeks but he says that he has been sleeping on his recliner for more than two years. Because of that now he tries to do any thing and his breathing gets worse. Recently he had an upper respiratory tract infection and bronchitis. He took a course of antibiotics with Zithromax which did not help him and he took another course with Levaquin. Because of worsening of his symptoms he came to the hospital. He had a workup done. CBC showed a WBC count of 8.9, hemoglobin 13.6, hematocrit 42.4, MCV 81, platelet count 157. Sodium 139, potassium 4.1, chloride 102, CO2 29, BUN 27, creatinine 1.202. BNP 117. IMAGING His chest x-ray shows postsurgical changes. No acute abnormality. He had an ultrasound of the lower extremity that shows no DVT. PAST MEDICAL HISTORY Significant for: 1. A history of coronary artery disease status post CABG. 2. Diabetes mellitus. 3. Hypertension. 4. Benign prostatic hypertrophy. 5. History of spinal stenosis and back pain. 6. History of bowel obstruction surgery. 7. History of left cataract surgery. MEDICATIONS He is on: 1. Lovenox 40 milligrams daily. 2. Metformin 1000 milligrams twice a day. 3. Flomax 0.4 milligrams daily. 5. Atrovent nebulizer treatment. 6. Amaryl 4 milligrams twice a day. 7. Medrol 60 milligrams daily. 8. Solu-Medrol 40 milligrams q.8h. 9. Aspirin 81 milligrams daily. 10. Lipitor 80 milligrams daily. 11. Coreg 25 milligrams twice a day. 12. Plavix 75 milligrams daily. 13. Hydrochlorothiazide 12.5 milligrams. 14. Losartan 50 milligrams daily. ALLERGIES HE IS ALLERGIC TO LASIX, ZOLPIDEM, CELEBREX. SOCIAL HISTORY He is for 60 years. 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 He has a [id number] history of smoking which he quit 30 years ago. FAMILY HISTORY He has five children. REVIEW OF SYSTEMS He walks only short distance. His walking is limited because of his back pain and spinal stenosis. He sleeps on a recliner. Weight has been stable. No DVT or pulmonary embolism. No seizure, stroke or epilepsy. No malignancy. PHYSICAL EXAMINATION GENERAL: Well-built, well-nourished elderly male, mild short of breath, not in acute distress. VITAL SIGNS: Blood pressure 119/75, heart rate 72, respirations 20, temperature 96.8, saturation 93% on 2 liters nasal cannula. HEENT: Examination unremarkable. He has left eye cataract. Oral mucosa, nasal mucosa normal. NECK: Supple. CHEST: He has harsh breath sounds with few rhonchi. CARDIOVASCULAR: S1-S2 normal. ABDOMEN: Soft. Nondistended. Bowel sounds are present. EXTREMITIES: 1-2+ pedal edema. IMPRESSION 1. COPD with mild exacerbation which is improving. 2. Coronary artery disease status post coronary artery bypass graft. 3. History of congestive heart failure compensated though he has a significant swelling in his legs. 4. Bronchitis has improved. 5. Chronic kidney disease. 6. History of abdominal surgery. PLAN I discussed with the patient and his he will need home oxygen therapy. I will check his room air blood gas and pulmonary function tests. Discontinue Solu-Medrol Check his room air blood gas and pulmonary function study discontinue Solu-Medrol. Prednisone 10 mg three times a day. Continue nebulizer treatment. I will arrange followup in my office. Further treatment will depend on the course in the hospital. Thank you Dr. Yoni Boss for this consultation. MD BRIAN Elias/KASSIDY /3:38 PM /4:01 PM ALIX
[2017-01-01 16:44] LABS: BLOOD GAS CARBOXYHEMOGLOBIN 1.3 % (0-4); BLOOD GAS HCO3 24 mmol/L (22-26); BLOOD GAS METHEMOGLOBIN 1.3 % (0-2); BLOOD GAS O2 HGB SATURATION 93 % (90-100); BLOOD GAS OXYGEN CONTENT 17.7 Vol % (12.0-20.0); BLOOD GAS PCO2 41 mmHG (38-42); BLOOD GAS PO2 80 mmHG (61-120); BLOOD GAS TOTAL HGB 13.5 G/DL (12.0-16.0); CRITICAL VALUE NO; DRAW SITE RT RADIAL; FIO2 21 %; NUMBER OF ARTERIAL PUNCTURES 1; OXYGEN DEVICE ROOM AIR; STAT NO; TEMP CORR TO 98.6; ULNAR PULSE PRESENT
[2017-01-01] MEDS: predniSONE 10 MG TAB PO SCH (17:48)
[2017-01-01] MEDS: MULTIVITAMIN TAB PO SCH (21:00)
[2017-01-01] MEDS: ENOXAPARIN SODIUM 40 MG/0.4 ML SYRINGE SQ SCH (21:12)
[2017-01-01] MEDS: ATORVASTATIN 40 MG TAB PO SCH (21:13)
[2017-01-01] MEDS: CLOPIDOGREL 75 MG TAB PO SCH (21:13)
[2017-01-01] MEDS: HYDROCHLOROTHIAZIDE 12.5 MG CAP PO SCH (21:14)
[2017-01-01] MEDS: LOSARTAN 50 MG TAB PO SCH (21:14)
[2017-01-01] MEDS: ASPIRIN EC 81 MG TABEC PO SCH (21:14)
[2017-01-02] VITALS: BP 141/77; PULSE 80; RESP 20; TEMP 96.3; O2SAT 96
[2017-01-02 04:00] VITALS: BP 145/92; PULSE 63; RESP 18; TEMP 96.5; O2SAT 96
[2017-01-02] MEDS: ISOSORBIDE MONONITRATE 60 MG TAB PO SCH (06:34)
[2017-01-02] MEDS: RESP: ALBUTEROL 2.5 MG/IPRATROPIUM 0.5 MG NEB (SCH) NEB (07:49)
[2017-01-02 07:50] VITALS: O2SAT 90
[2017-01-02 08:00] VITALS: BP 142/74; PULSE 63; RESP 20; TEMP 96.8; O2SAT 94
[2017-01-02 08:35] VITALS: PULSE 58
[2017-01-02] MEDS: CARVEDILOL 12.5 MG TAB PO SCH (09:40)
[2017-01-02] MEDS: GLIMEPIRIDE 4 MG TAB PO SCH (09:40)
[2017-01-02] MEDS: TAMSULOSIN HCL 0.4 MG CAP PO SCH (09:47)
[2017-01-02] MEDS: metFORMIN HCL 500 MG TAB PO SCH (09:47)
[2017-01-02] MEDS: predniSONE 10 MG TAB PO SCH ×2 (09:47→12:15)
[2017-01-02 12:00] VITALS: BP 127/77; PULSE 64; RESP 20; TEMP 96.6; O2SAT 94
[2017-01-02] MEDS ORDERED: IPRASOL NEB (12:16)
[2017-01-02] MEDS ORDERED: PRED10 PO (12:16)
[2017-01-02] MEDS ORDERED: NEBUKIT5 OROPHARYNG (12:16)
--- NOTE | 2017-01-02 13:09 | HHI.DS ---
Discharge Summary Admission Date Dec 30, 2016 at 19:20 Discharge Date: Jan 02, 2017 Admitting Diagnosis hypoxia, dyspnea (1) Hypoxia Diagnosis: Principal ICD Codes: R09.02 - Hypoxemia Status: Acute (2) Bronchitis Diagnosis: Principal ICD Codes: J40 - Bronchitis, not specified as acute or chronic (3) Restrictive lung disease Diagnosis: Principal ICD Codes: J98.4 - Other disorders of lung (4) Dyspnea Diagnosis: Principal ICD Codes: R06.00 - Dyspnea, unspecified Status: Acute (5) HTN (hypertension) Diagnosis: Secondary ICD Codes: I10 - HTN (hypertension) Status: Chronic (6) Type 2 diabetes mellitus Diagnosis: Secondary ICD Codes: E11.9 - Type 2 diabetes mellitus without complications Status: Chronic (7) Stage 3 chronic kidney disease Diagnosis: Secondary ICD Codes: N18.3 - Chronic kidney disease, stage 3 (moderate) Status: Chronic (8) Hyperlipidemia Diagnosis: Secondary ICD Codes: E78.5 - Hyperlipidemia Status: Chronic (9) CAD (coronary artery disease) Diagnosis: Secondary ICD Codes: I25.9 - CAD (coronary artery disease) Status: Chronic (10) GERD (gastroesophageal reflux disease) Diagnosis: Secondary ICD Codes: K21.9 - GERD (gastroesophageal reflux disease) Status: Chronic (11) BPH (benign prostatic hyperplasia) Diagnosis: Secondary ICD Codes: N40.0 - Benign prostatic hyperplasia without lower urinary tract symptoms Status: Chronic (12) Osteoarthritis Diagnosis: Secondary ICD Codes: M19.90 - Unspecified osteoarthritis, unspecified site Status: Chronic Consultants Pulmonary (Dr Jean) Brief History 81 year old white make who came to the ER when his PCP (Dr Smalls) recommended it because he was noted to be hypoxic (oximetry in the 80's) while in her office. He had a cough for 2-3 weeks with progressive shortness of breath. He had tried a Z-rob and then Levaquin as an outpatient as well as a Dulera Inhaler. He took the 1st day of a Medrol Dose pack but did not continue it because GI side effects. He denied any history of lung disease. He smoked 3 ppd x 30 years prior to quitting several years ago. He has history of coronary artery disease with pror [place] and CABG, hypertension, type 2 diabetes mellitus, hyperlipidemia, BPH, GERD. stage 3 CKD, osteoarthritis. He was admitted and put on Duoneb treatments, oxygen, IV Solu-Medrol. CBC/BMP: 12/30/16 1618 12/31/16 0455 Significant Findings Laboratory Tests Test 12/30/16 15:40 12/30/16 16:18 12/31/16 04:55 01/01/17 16:35 D-Dimer Quantitative (PE/DVT) 0.32 MG/L FEU White Blood Count 8.9 TH/MM3 Red Blood Count 5.22 MIL/MM3 Hemoglobin 13.6 GM/DL Hematocrit 42.4 % Mean Corpuscular Volume 81.2 FL Mean Corpuscular Hemoglobin 26.0 PG Mean Corpuscular Hemoglobin Concent 32.0 % Red Cell Distribution Width 13.4 % Platelet Count 157 TH/MM3 Mean Platelet Volume 9.5 FL Neutrophils (%) (Auto) 75.8 % Lymphocytes (%) (Auto) 15.9 % Monocytes (%) (Auto) 5.6 % Eosinophils (%) (Auto) 2.2 % Basophils (%) (Auto) 0.5 % Neutrophils # (Auto) 6.8 TH/MM3 Lymphocytes # (Auto) 1.4 TH/MM3 Monocytes # (Auto) 0.5 TH/MM3 Eosinophils # (Auto) 0.2 TH/MM3 Basophils # (Auto) 0.0 TH/MM3 CBC Comment DIFF FINAL Differential Comment Prothrombin Time 11.2 SEC Prothromb Time International Ratio 1.0 RATIO Activated Partial Thromboplast Time 32.2 SEC Blood Urea Nitrogen 24 MG/DL 27 MG/DL Creatinine 1.40 MG/DL 1.20 MG/DL Random Glucose 177 MG/DL 259 MG/DL Total Protein 6.9 GM/DL Albumin 3.7 GM/DL Calcium Level 8.4 MG/DL 8.8 MG/DL Alkaline Phosphatase 69 U/L Aspartate Amino Transf (AST/SGOT) 17 U/L Alanine Aminotransferase (ALT/SGPT) 23 U/L Total Bilirubin 0.6 MG/DL Sodium Level 140 MEQ/L 139 MEQ/L Potassium Level 4.0 MEQ/L 4.1 MEQ/L Chloride Level 102 MEQ/L 102 MEQ/L Carbon Dioxide Level 30.3 MEQ/L 29.7 MEQ/L Total Creatine Kinase 101 U/L Creatine Kinase MB 3.2 NG/ML Troponin I 0.02 NG/ML B-Type Natriuretic Peptide 117 PG/ML Anion Gap 7 MEQ/L Estimat Glomerular Filtration Rate 58 ML/MIN Blood Gas Puncture Site RT RADIAL Blood Gas Patient Temperature 98.6 Blood Gas HCO3 24 mmol/L Blood Gas Base Excess 0.0 mmol/L Blood Gas Oxygen Saturation 93 % Arterial Blood pH 7.39 Arterial Blood Partial Pressure CO2 41 mmHG Arterial Blood Partial Pressure O2 80 mmHG Arterial Blood Oxygen Content 17.7 Vol % Arterial Blood Carboxyhemoglobin 1.3 % Arterial Blood Methemoglobin 1.3 % Blood Gas Hemoglobin 13.5 G/DL Oxygen Delivery Device ROOM AIR Blood Gas Inspired Oxygen 21 % Laboratory Tests Test 12/30/16 15:40 12/30/16 16:18 12/31/16 04:55 01/01/17 16:35 Mean Corpuscular Hemoglobin 26.0 PG (27.0-34.0) Neutrophils (%) (Auto) 75.8 % (16.0-70.0) Activated Partial Thromboplast Time 32.2 SEC (24.3-30.1) Blood Urea Nitrogen 24 MG/DL (7-18) 27 MG/DL (7-18) Creatinine 1.40 MG/DL (0.60-1.30) Random Glucose 177 MG/DL (74-106) 259 MG/DL (74-106) Calcium Level 8.4 MG/DL (8.5-10.1) Estimat Glomerular Filtration Rate 49 ML/MIN (>89) 58 ML/MIN (>89) B-Type Natriuretic Peptide 117 PG/ML (0-100) Imaging Last Impressions Chest X-Ray 12/30/16 1604 Signed Impressions: Service Date/Time: Friday, December 30, 2016 16:19 - CONCLUSION: 1. Stable postsurgical features 2. No acute abnormality or significant interval change. Tray Lara MD Lower Extremity Ultrasound 12/30/16 0000 Signed Impressions: Service Date/Time: Friday, December 30, 2016 18:42 - CONCLUSION: No DVT is identified with either lower extremity. Kenney Franklin MD PE at Discharge Exam: Pleasant white male in no distress. HEENT: Pupils equal, no scleral icterus, mouth negative Neck :No JVD Lungs: Appeared clear Heart: RRR Abdomen: Soft, nontender Extremities: 1 + edema (chronic) Neuro: alert, oriented Hospital Course Patient was admitted and put on Duoneb nebulizer treatments, IV Solu-Medrol, and oxygen. With his smoking history it was thought he likely had underlying COPD but his bedside pulmonary function test was thought to be more suggestive of a restrictive lung disease. He had been recommended in the ER initially to do a CT pulmonary angiography but he declined it because he gets short of breath when he lies down. Because of orthopnea he mentioned he as been sleeping in a recliner for over a year. He also declined a VQ lung scan for the same reason. A D-Dimer was normal and an Doppler venous ultrasound of the lower extremities was negative for a DVT. There was not enough evidence to recommended empiric treatment for a PE. A pulmonary consult was obtained and he was seen by Dr Jean on 01-01-17. He changed him to oral Prednisone. He has been cleared for discharge today by Dr Jean. He will be sent home on Duoneb treatments every 6 hours prn and a tapering dose of Prednisone (10mg tid x 5d, 10mg bid x 5d, 10mg daily x 5d. Dr Jean wanted to see him in 10 days and he is recommended to see Dr Smalls in one week. His home medications will be continued other than his Dulera inhaler that he was just recently put on was not continued at this time. He was not sent home on oxygen because he did not meet criteria for home oxygen on a respiratory walk test done on 01-02-17. Pt Condition on Discharge: Stable Discharge Disposition: Discharge Home Discharge Instructions DIET: Follow Instructions for: Diabetic Diet Activities you can perform: Regular-No Restrictions Follow up Referrals: PCP Follow-up - [address] Smalls Pulmonology - 10 Days with Shankar Jean MD New Medications: Nebulizer Kit/Tubing/Mout (Nebulizer Kit/Tubing/Mout) 1 Kit Kit KIT OROPHARYNG DIRECTED, #1 0 Refills Use Duoneb medication with nebulizer 4 times a day as needed for SOB Ipratropium-Albuterol Neb (Duoneb) 0.5-2.5 Mg/3 Ml Neb 1 AMPULE NEB Q6HR WHILE AWAKE NEB PRN for wheezing or shortness of breah for 30 Days, #120 ML 1 Refill Prednisone (Prednisone) 10 Mg Tab 10 MG PO DIRECTED for bronchitis, #30 TAB 0 Refills Take one tablet three tinmes a day for 5 days, then one twice a day for 5 days, the one daily for 5 days Continued Medications: Aspirin DR (Aspirin EC) 81 Mg Tabdr 81 MG PO HS, TAB 0 Refills Atorvastatin (Atorvastatin) 80 Mg Tab 80 MG PO HS for Cholesterol Management, #30 TAB 0 Refills Carvedilol (Coreg) 25 Mg Tab 25 MG PO BID, #60 TAB 0 Refills Clopidogrel (Clopidogrel) 75 Mg Tab 75 MG PO HS for Blood Clot Prevention, #30 TAB 0 Refills Coenzyme Q10 (Ubidecarenone) (Coq-10 Tr) 100 Mg Cap 2 TAB PO EVENING Garlic (Garlic Oil 1000) 1,000 Mg Cap 1 CAP PO HS Glimepiride (Glimepiride) 4 Mg Tab 4 MG PO BIDAC for Blood Sugar Management, #60 TAB 0 Refills Glucosamine-Chondroitin (Glucosamine-Chondroitin) 500-400 Mg Tab 1 TAB PO DAILY for Herbal Supplements, TAB 0 Refills Hydrochlorothiazide (Hydrochlorothiazide) 12.5 Mg Cap 12.5 MG PO HS, #30 CAP 0 Refills Hydrocodone-Acetaminophen (Hydrocodone-Acetaminophen) 5-325 mg Tab 1 TAB PO Q6H PRN for PAIN, TAB 0 Refills Isosorbide Mononitrate ER (Isosorbide Mononitrate ER) 60 Mg Tab 60 MG PO DAILY for Prevent Chest Pain, #30 TAB 0 Refills Krill Oil (Krill Oil [place]-3 500 mg) 500 Mg-115 Mg-30 Mg-64 Mg-167 Mg Cap 1 TAB PO DAILY Lactobacillus Rhamnosus (GG) (Culturelle) 10 Billion Cell Cap 1 CAP PO DAILY for Nutritional Supplement, CAP 0 Refills Losartan (Losartan) 50 Mg Tab 50 MG PO HS for Blood Pressure Management, #30 TAB 0 Refills Metformin (Metformin) 1,000 Mg Tab 1000 MG PO BIDPC for Blood Sugar Management, #60 TAB 0 Refills With meals Multiple Vitamin (Multiple Vitamin) 1 Tab 1 TAB PO HS for Nutritional Supplement, TAB 0 Refills Nitroglycerin SL (Nitroglycerin SL) 0.4 Mg Subl 0.4 MG SL DIRECTED PRN for CHEST PAIN, #100 TAB.SL 0 Refills ONE TABLET UNDER THE TONGUE NEEDED FOR CHEST PAIN, MAY REPEAT EVERY FIVE MINUTES FOR A TOTAL OF 3 DOSES OR CALL 911 IF NO RELIEF Rabeprazole (Aciphex) 20 Mg Tab 20 MG PO BID PRN for INDIGESTION, #30 TAB 0 Refills Suvorexant (Belsomra) 20 Mg Tab 20 MG PO HS for Provide Good Sleep, #30 TAB 0 Refills Tamsulosin (Tamsulosin) 0.4 Mg Cap 0.4 MG PO EVENING for Manage Prostate Problems, #30 CAP 0 Refills [Cranberry] () 500 MG PO DAILY Discontinued Medications: Azithromycin (Zithromax Z-Rob) 250 Mg Dspk 250 MG PO DIRECTED for Infection, #1 DSPK 0 Refills 500 MG (2 tabs) day 1, then 1 tab days 2-5. Mometasone-Formoterol 120 Act Inh (Dulera 120 Act Inh) 200-5 Mcg/Act Inh 2 PUFF INH BID for Asthma Management, #1 INHALER 0 Refills Oxycodone (Oxycodone) 5 Mg Cap 5 MG PO Q4H PRN for PAIN, CAP 0 Refills Promethazine-Codeine Liq (Promethazine-Codeine Liq) 6.25-10 Mg/5 Ml Syrp 10 ML PO Q6H PRN for COUGH AND/OR COLD SYMPTOMS, ML 0 Refills Yoni Boss MD Jan 02, 2017 13:09
--- NOTE | 2017-01-03 09:14 | RSPPFT ---
DATE OF PROCEDURE: 01/01/17 COMMENTS: Spirometry shows FVC of 1.2 at 29% of predicted, FEV1 of 1.2 at 37%, FEV1/FVC ratio is normal. Flow is normal at FEF 25-75. IMPRESSION: 1. Findings are suggestive of severe restrictive disease. 2. Patient will need a complete pulmonary function test with lung volumes and diffusion capacity For further evaluation.
== END 2017-01-02 12:58 | disposition home or self-care (01) | DRG 192 ==
LOC: PHED 15:28 → PHEDA 19:20 → PH3A 21:00
PROVIDERS: ADMIT Family Medicine; ATTEND Family Medicine
DX: J44.1 Chronic obstructive pulmonary disease with (acute) exacerbation (principal); E11.22 Type 2 diabetes mellitus with diabetic chronic kidney disease; N18.3 Chronic kidney disease, stage 3 (moderate); J98.4 Other disorders of lung; I12.9 Hypertensive chronic kidney disease with stage 1 through stage 4 chronic kidney disease, or unspecified chronic kidney disease; E78.5 Hyperlipidemia, unspecified; I25.10 Atherosclerotic heart disease of native coronary artery without angina pectoris; M19.90 Unspecified osteoarthritis, unspecified site; N40.0 Benign prostatic hyperplasia without lower urinary tract symptoms; K21.9 Gastro-esophageal reflux disease without esophagitis; Z95.1 Presence of aortocoronary bypass graft; Z79.84 Long term (current) use of oral hypoglycemic drugs; Z79.82 Long term (current) use of aspirin; Z87.891 Personal history of nicotine dependence; I25.2 Old myocardial infarction
CPT/HCPCS: 36600; 71010; 80048; 80053; 82550; 82552; 82805; 83880; 84484; 85025; 85379; 85610; 85730; 87040; 87804; 93005; 93970; 94010; 94620; 94640; 94664; 94667; 94668; J1650; J2920; J2930; J7512

== ENCOUNTER 2017-02-11 22:10 | Inpatient (IN) | payer MEDICARE ==
[~2017-02-11] VITALS: Ht 182.9 cm; Wt 113.0 kg
[~2017-02-11 22:10] MED LIST changes: -ASPI81 PO; +ASPI81TA23 PO; +ATOR80TA45 PO; -CARV25TA OR; -CLOP75 PO; +CLOP75TA PO; +COQ-100C5 PO; +CORE25TA PO; +CRANPOW2 PO; +CULT10CA4 PO; +GARL1000 PO; +GLIM4TAB PO; +GLUC500T4 PO; -GLUCTAB OR; -GLYB1TAB51 PO; +HYDR-3516 PO; -HYDR12.56 PO; +HYDR12.57 PO; +IPRASOL NEB; -ISOS30 PO; +ISOS60TA PO; +KRIL1CAP10 PO; -LORT5TAB PO; +LOSA50TA PO; -Losartan Potassium PO; +METF1000 PO; +MULTTAB67 PO; +NEBUKIT5 OROPHARYNG; +NITR1SUB3 SL; +PRED10 PO; -SIMV80TA OR; +SUVO1TAB4 PO; +TAMS0.4C4 PO; -ZOLP10TA3 PO
[2017-02-11 22:14] VITALS: BP 171/117; PULSE 141; RESP 25; TEMP 97.8; O2SAT 94
[2017-02-11] MEDS ORDERED: SODIUM CHLORIDE 0.9% FLUSH 10 ML FLUSH IVF PRN (22:15)
[2017-02-11 22:21] VITALS: RESP 25; O2SAT 96
[2017-02-11] MEDS ORDERED: ASPIRIN 81 MG CHEW TAB PO ONE (22:30)
[2017-02-11] MEDS ORDERED: NITROGLYCERIN 2% OINT 1 GM PACKET TOP ONE (22:30)
[2017-02-11] MEDS ORDERED: MORPHINE SULFATE 4 MG/ML INJ IV PUSH ONE ×2 (22:30→23:45)
[2017-02-11 22:31] LABS: AUTOMATED NEUTROPHIL # 5.3 TH/MM3 (1.8-7.7); BASOPHIL # 0.1 TH/MM3 (0-0.2); BASOPHIL % 1.1 % (0.0-2.0); EOSINOPHIL # 0.1 TH/MM3 (0-0.4); EOSINOPHIL % 1.2 % (0.0-4.0); HEMATOCRIT 32.8 % (39.0-51.0); LYMPH % 14.2 % (9.0-44.0); MEAN CELL VOLUME 82.9 FL (80.0-100.0); MEAN CORPUSCULAR HEMOGLOBIN 27.1 PG (27.0-34.0); MEAN CORPUSCULAR HGB CONC 32.7 % (32.0-36.0); NEUT % 75.5 % (16.0-70.0); PLATELET COUNT 126 TH/MM3 (150-450); RED BLOOD COUNT 3.95 MIL/MM3 (4.50-5.90); RED CELL DISTRIBUTION WIDTH 15.8 % (11.6-17.2)
[2017-02-11 22:32] VITALS: BP 169/115; PULSE 136; RESP 25; O2SAT 97
[2017-02-11 22:32] LABS: HEMO FLAGS AUTO DIFF
--- NOTE | 2017-02-11 22:34 | PD ---
HPI Chief Complaint: Chest Pain Time Seen by Provider: 22:18 Travel History International Travel<30 days: No Contact w/Intl Traveler<30days: No Traveled to known affect area: No History of Present Illness HPI C/O SUBSTERNAL CP, PRESSURE, nonradiated, 11/14, NONRAD. ALLEVIAted by ntg but denies AGGRAVATING FACTORS, DENIES ASSOCIATED FACTORS OF NICKERSON/N/V/D/ABDPAIN/ FEVER/COUGH/URI AT THIS TIME PFSH Past Medical History Hx Anticoagulant Therapy: Yes (PLAVIX) Arthritis: Yes Heart Rhythm Problems: Yes Cancer: No Cardiac Catheterization: Yes Cardiovascular Problems: Yes (OK, HTN) High Cholesterol: Yes Chest Pain: Yes Congestive Heart Failure: No Coronary Artery Disease: Yes Diabetes: Yes (DM) Patient Takes Glucophage: Yes Diminished Hearing: No Endocrine: Yes Gastrointestinal Disorders: No GERD: Yes Genitourinary: No Hiatal Hernia: No Hypertension: Yes Medical other: Yes (GERD) Musculoskeletal: Yes (RT. HIP BURSITIS) Neurologic: No Psychiatric: No Reproductive: No Respiratory: No Thyroid Disease: No Past Surgical History Abdominal Surgery: Yes (EXPL. LAP) Cardiac Surgery: Yes (CABG X 5 IN 1993) Coronary Artery Bypass Graft: Yes (5 CABG 1993) Genitourinary Surgery: Yes (PENILE IMPLANT) Other Surgery: Yes Social History Alcohol Use: No Tobacco Use: No (FORMER) Substance Use: No Allergies-Medications (Allergen,Severity, Reaction): Coded Allergies: celecoxib (Unverified Allergy, Severe, REFLUX, 11/19/16) ranolazine (Verified Allergy, Severe, 02/11/17) zolpidem (Verified Allergy, Severe, "CAUSED TO ACT CRAZY", 12/30/16) Reported Meds & Prescriptions Reported Meds & Active Scripts Active Duoneb (Ipratropium-Albuterol Neb) 0.5-2.5 Mg/3 Ml Neb 1 Ampule NEB Q6HR WHILE AWAKE NEB PRN 30 Days Reported Nitroglycerin SL (Nitroglycerin) 0.4 Mg Subl 0.4 Mg SL DIRECTED PRN ONE TABLET UNDER THE TONGUE NEEDED FOR CHEST PAIN, MAY REPEAT EVERY FIVE MINUTES FOR A TOTAL OF 3 DOSES OR CALL 911 IF NO RELIEF Multiple Vitamin 1 Tab 1 Tab PO HS Metformin (Metformin HCl) 1,000 Mg Tab 1,000 Mg PO BIDPC With meals Krill Oil Bandy-3 500 mg (Krill Oil) 500 Mg-115 Mg-30 Mg-64 Mg-167 Mg Cap 1 Tab PO DAILY Hydrocodone-Acetaminophen 5-325 mg Tab 1 Tab PO Q6H PRN Hydrochlorothiazide 12.5 Mg Cap 12.5 Mg PO HS Glucosamine-Chondroitin 500-400 Mg Tab 1 Tab PO DAILY Glimepiride 4 Mg Tab 4 Mg PO BIDAC Garlic Oil 1000 (Garlic) 1,000 Mg Cap 1 Cap PO HS Culturelle (Lactobacillus Rhamnosus (GG)) 10 Billion Cell Cap 1 Cap PO DAILY Coq-10 Tr (Coenzyme Q10 (Ubidecarenone)) 100 Mg Cap 2 Tab PO EVENING Clopidogrel (Clopidogrel Bisulfate) 75 Mg Tab 75 Mg PO HS Belsomra (Suvorexant) 20 Mg Tab 20 Mg PO HS Atorvastatin (Atorvastatin Calcium) 80 Mg Tab 80 Mg PO HS Aspirin EC (Aspirin) 81 Mg Tabdr 81 Mg PO HS Aciphex (Rabeprazole Sodium) 20 Mg Tab 20 Mg PO BID PRN Review of Systems Except as stated in HPI: all other systems reviewed are Neg General / Constitutional: No: Fever Eyes: No: Visual changes HENT: No: Headaches Cardiovascular: Positive: Chest Pain or Discomfort Respiratory: No: Shortness of Breath Gastrointestinal: No: Abdominal Pain Genitourinary: No: Dysuria Musculoskeletal: No: Pain Skin: No Rash Neurologic: No: Weakness Psychiatric: No: Depression Endocrine: No: Polydipsia Hematologic/Lymphatic: No: Easy Bruising Physical Exam Narrative GENERAL: SKIN: Warm and dry. HEAD: Atraumatic. Normocephalic. EYES: Pupils equal and round. No scleral icterus. No injection or drainage. ENT: No nasal bleeding or discharge. Mucous membranes pink and moist. NECK: Trachea midline. No JVD. CARDIOVASCULAR: tachycardic rate and irregular rhythm. RESPIRATORY: tachypneic, crackles bibasilarly GASTROINTESTINAL: Abdomen soft, non-tender, nondistended. MUSCULOSKELETAL: Extremities without clubbing, cyanosis, or edema. No obvious deformities. NEUROLOGICAL: Awake and alert. No obvious cranial nerve deficits. Motor grossly within normal limits. Five out of 5 muscle strength in the arms and legs. Normal speech. PSYCHIATRIC: Appropriate mood and affect; insight and judgment normal. Data Data Last Documented VS Orders Orders Electrocardiogram (02/11/17 22:15) B-Type Natriuretic Peptide (02/11/17 22:15) Ckmb (Isoenzyme) Profile (02/11/17 22:15) Complete Blood Count With Diff (02/11/17:15) Comprehensive Metabolic Panel (02/11/17 22:15) Prothrombin Time / Inr (Pt) (02/11/17 22:15) Act Partial Throm Time (Ptt) (02/11/17 22:15) Troponin I (02/11/17:15) Lipase (02/11/17 22:15) Chest, Single Ap (02/11/17:15) Ecg Monitoring (02/11/17:15) Bilateral Bp Monitoring (02/11/17:15) Iv Access Insert/Monitor (02/11/17:15) Oximetry (02/11/17:15) Oxygen Administration (02/11/17:15) Sodium Chloride 0.9% Flush (Ns Flush) (02/11/17 22:15) Aspirin Chew (Aspirin Chew) (02/11/17 22:30) Morphine Inj (Morphine Inj) (02/11/17 22:30) Nitroglycerin 2% Oint (Nitroglycerin 2% (02/11/17 22:30) Calcium Gluconate Inj (Calcium Gluconate (02/11/17 23:30) Morphine Inj (Morphine Inj) (02/11/17 23:45) Hydromorphone Pf Inj (Dilaudid Pf Inj) (02/12/17 00:30) Ondansetron Inj (Zofran Inj) (02/12/17 00:30) Diltiazem Inj (Cardizem Inj) (02/12/17 00:30) Admit Order (Ed Use Only) (02/12/17 00:24) Dextrose 5% In [place]... W/Amiodarone Inj (02/12/17 00:25) Aspirin Ec (Ecotrin Ec) (02/12/17 21:00) Atorvastatin (Lipitor) (02/12/17 21:00) Carvedilol (Coreg) (02/12/17 09:00) Clopidogrel (Plavix) (02/12/17 21:00) Glimepiride (Amaryl) (02/12/17 07:00) Hydrochlorothiazide (Microzide) (02/12/17 21:00) Acetamin-Hydrocod 325-5 Mg ([place] 5-325 (02/12/17 00:45) Isosorbide Mononitrate (Imdur) (02/12/17 07:00) Losartan (Cozaar) (02/12/17 21:00) Metformin (Glucophage) (02/12/17 09:00) Nitroglycerin Sl (Nitrostat Sl) (02/12/17 00:45) Pantoprazole (Protonix) (02/12/17 00:45) Tamsulosin (Flomax) (02/12/17 09:00) Multivitamin (Theragran) (02/12/17 21:00) (Nf) Suvorexant (Belsomra) (02/12/17 21:00) Nitroglycerin 2% Oint (Nitroglycerin 2% (02/12/17 06:00) Place In Observation (02/12/17 ) Vital Signs (Adult) Q4H (02/12/17 00:38) Activity Bed Rest With Brp (02/12/17 ) Machine Welder / Telemetry KOURTNEY.Q8H (02/12/17 00:38) Diet Heart Healthy (02/12/17 Breakfast) Sodium Chloride 0.9% Flush (Ns Flush) (02/12/17 09:00) Sodium Chloride 0.9% Flush (Ns Flush) (02/12/17 00:45) Acetaminophen (Tylenol) (02/12/17 00:45) Resp Oxygen Jeramy C Titrat 1-4 L (02/12/17 ) Enoxaparin Inj (Lovenox Inj) (02/12/17 09:00) Scd Bilateral/Knee High KOURTNEY.BID (02/12/17 00:38) Albuterol-Ipratropium Neb (Duoneb Neb) (02/12/17 00:45) Labs Laboratory Tests Test 02/11/17 22:17 White Blood Count 7.0 TH/MM3 Red Blood Count 3.95 MIL/MM3 Hemoglobin 10.7 GM/DL Hematocrit 32.8 % Mean Corpuscular Volume 82.9 FL Mean Corpuscular Hemoglobin 27.1 PG Mean Corpuscular Hemoglobin Concent 32.7 % Red Cell Distribution Width 15.8 % Platelet Count 126 TH/MM3 Mean Platelet Volume 9.0 FL Neutrophils (%) (Auto) 75.5 % Lymphocytes (%) (Auto) 14.2 % Monocytes (%) (Auto) 8.0 % Eosinophils (%) (Auto) 1.2 % Basophils (%) (Auto) 1.1 % Neutrophils # (Auto) 5.3 TH/MM3 Lymphocytes # (Auto) 1.0 TH/MM3 Monocytes # (Auto) 0.6 TH/MM3 Eosinophils # (Auto) 0.1 TH/MM3 Basophils # (Auto) 0.1 TH/MM3 CBC Comment AUTO DIFF Differential Total Cells Counted 100 Neutrophils % (Manual) 63 % Band Neutrophils % 1 % Lymphocytes % 19 % Monocytes % 6 % Eosinophils % 3 % Basophils % 2 % Neutrophils # (Manual) 4.9 TH/MM3 Metamyelocytes 1 % Myelocytes 4 % Promyelocytes 1 % Differential Comment FINAL DIFF MANUAL Platelet Estimate LOW Platelet Morphology Comment NORMAL Ovalocytes 1+ Acanthocytes 1+ Prothrombin Time 10.7 SEC Prothromb Time International Ratio 1.0 RATIO Activated Partial Thromboplast Time 29.8 SEC Blood Urea Nitrogen 16 MG/DL Creatinine 1.12 MG/DL Random Glucose 194 MG/DL Total Protein 5.2 GM/DL Albumin 2.7 GM/DL Calcium Level 6.4 MG/DL Alkaline Phosphatase 57 U/L Aspartate Amino Transf (AST/SGOT) 16 U/L Alanine Aminotransferase (ALT/SGPT) 22 U/L Total Bilirubin 0.5 MG/DL Sodium Level 146 MEQ/L Potassium Level 3.3 MEQ/L Chloride Level 112 MEQ/L Carbon Dioxide Level 24.3 MEQ/L Anion Gap 10 MEQ/L Estimat Glomerular Filtration Rate 63 ML/MIN Protein Corrected Calcium 7.3 MG/DL Total Creatine Kinase 49 U/L Troponin I 0.02 NG/ML B-Type Natriuretic Peptide 112 PG/ML Lipase 175 U/L [facility] Medical Decision Making Medical Screen Exam Complete: Yes Emergency Medical Condition: Yes Medical Record Reviewed: Yes Interpretation(s) SINUS TACHYCARDIA, 137, RBBB, ST DEPRESSION I/AVL/V4/V5 NO CONCOMITANT STEMI PATTERN NOTED NOR ANY CONCORDANCE Differential Diagnosis PNA V PTX V STEMI V NONSTEMI V CHF Narrative Course patient refused to have cta done to r/o aaa or dissection after thorough explanation with and daughter at bedside. made aware that without it we cannot diagnose if he has those conditions which can kill him, patient still refused. Critical Care Narrative CRITICAL CARE NOTE: With evaluation of the patient, labs, EKG, receipt of radiologic studies, administration of medications, reevaluation the patient and discussion of the patient with the admitting physicians, the total critical care time was [45] minutes. Time to perform other separately billable procedures was not included in the critical care time. Diagnosis Primary Impression: Chest pain Qualified Codes: R07.9 - Chest pain, unspecified Admitting Information Admitting Physician Requests: Admit Scripts Amiodarone (Amiodarone) 200 Mg Tab 200 MG PO Q12HR for A fib, heart rate, #28 TAB 0 Refills Prov: Annette Cevallos 02/16/17 Bumetanide (Bumetanide) 1 Mg Tab 1 MG PO DAILY for fluid retention, #30 TAB 0 Refills Prov: Annette Cevallos 02/16/17 Carvedilol (Coreg) 12.5 Mg Tab 50 MG PO BID for heart rate, heart, #60 TAB 0 Refills Prov: Annette Cevallos 02/16/17 Isosorbide Mononitrate ER (Isosorbide Mononitrate ER) 30 Mg Dilan 30 MG PO DAILY@0700 for heart, #30 TAB 0 Refills Prov: Annette Cevallos 02/16/17 Digoxin (Digoxin) 0.125 Mg Tab 0.125 MG PO DAILY for A Fib, #30 TAB 0 Refills Prov: Annette Cevallos 02/16/17 Apixaban (Eliquis) 5 Mg Tab 5 MG PO BID for Blood Clot Prevention, #60 TAB 0 Refills Prov: Annette Cevallos 02/16/17 Victor Manuel Jo MD Feb 11, 2017 22:34
[2017-02-11 22:44] LABS: APTT (PATIENT) 29.8 SEC (24.3-30.1); PROTHROMBIN TIME - PATIENT 10.7 SEC (9.8-11.6)
--- NOTE | 2017-02-11 22:44 | RADRPT ---
EXAM DATE/TIME: 02/11/2017 22:19 [place] COMPARISON: CHEST SINGLE AP, December 30, 2016, 16:19. INDICATIONS : Chest pain, short of breath. MEDICAL HISTORY : None. SURGICAL HISTORY : CABG. ENCOUNTER: Initial ACUITY: 1 day PAIN SCORE: 0/10 LOCATION: Bilateral chest FINDINGS: A single portable frontal view the chest is blurred by breathing motion artifact. The patient's chin and soft tissues obscure the apices particularly on the right. Low lung volumes observed. Heart is en larged. Pulmonary vascular engorgement noted. Bibasilar parenchymal opacities more pronounced on the right. No discernible effusions. Median sternotomy wires. CONCLUSION: Cardiomegaly with pulmonary vascular engorgement. Bibasilar consolidations likely related to intra-al veolar pulmonary edema. Jarek Reinoso Jr., MD on February 11, 2017 at 22:42 Board Certified Radiologist. This report was verified electronically.
[2017-02-11 23:06] LABS: BICARBONATE 24.3 MEQ/L (21.0-32.0); POTASSIUM 3.3 MEQ/L (3.5-5.1); TOTAL BILIRUBIN ADULT 0.5 MG/DL (0.2-1.0)
[2017-02-11 23:07] LABS: BANDS 1 % (0-6); BASOPHILS 2 % (0-2); EOSINOPHILS 3 % (0-4); METAMYELOCYTES 1 % (0-1); MYELOCYTES 4 % (0-0); NEUTROPHIL # MANUAL DIFF 4.9 TH/MM3 (1.8-7.7); POLYS (SEG NEUTROPHILS) 63 % (16-70); PROMYELOCYTES 1 % (0-0); SCAN/DIFF FINAL DIFF MANUAL; WBC DIFF SAMPLE 100
[2017-02-11 23:09] LABS: ACANTHOCYTES 1+ (NORMAL); OVALOCYTES 1+ (NORMAL); PLATELET ESTIMATE SMEAR LOW (NORMAL); PLATELET MORPHOLOGY NORMAL (NORMAL)
[2017-02-11 23:10] LABS: CALCIUM-PROTEIN CORRECTED 7.3 MG/DL (8.5-10.1)
[2017-02-11] MEDS ORDERED: CALCIUM GLUCONATE INJ 2 GM in SODIUM CHLORIDE 0.9% INJ 100 ML IV ONE (23:30)
[2017-02-12] VITALS (23 sets, daily range): BP systolic 121–171; BP diastolic 68–116; PULSE 76–130; RESP 16–34; TEMP 97.1–97.4; O2SAT 93–97
[2017-02-12] MEDS ORDERED: AMIODARONE INJ 150 MG in DEXTROSE 5% IN WATER 100ML INJ 97 ML IV ONE ×2 (00:25)
[2017-02-12] MEDS ORDERED: ONDANSETRON HCL 4 MG/2 ML VIAL IV PUSH ONE (00:30)
[2017-02-12] MEDS ORDERED: DILTIAZEM HCL 25 MG/5 ML VIAL IV ONE (00:30)
[2017-02-12] MEDS ORDERED: HYDROmorphone HCL PF 1 MG/ML VIAL IV PUSH ONE (00:30)
[2017-02-12] MEDS ORDERED: ACETAMINOPHEN 500 MG CPLT PO PRN (00:45)
[2017-02-12] MEDS ORDERED: COENZYME Q10 PO SCH (00:45)
[2017-02-12] MEDS ORDERED: SODIUM CHLORIDE 0.9% FLUSH 10 ML FLUSH IV FLUSH PRN (00:45)
[2017-02-12] MEDS ORDERED: GLUCAGON 1 MG/ML VIAL OTHER PRN (00:45)
[2017-02-12] MEDS ORDERED: ACETAMINOPHEN/HYDROcodone 325 MG/5 MG TAB PO PRN (00:45)
[2017-02-12] MEDS ORDERED: DEXTROSE 50% IN WATER 50 ML VIAL(D50) IV PUSH PRN (00:45)
[2017-02-12] MEDS ORDERED: PANTOPRAZOLE SOD 20 MG DELAYED RELEASE TAB PO PRN (00:45)
[2017-02-12] MEDS ORDERED: MORPHINE SULFATE 2 MG/ML INJ IV PRN (01:00)
[2017-02-12] MEDS: NITROGLYCERIN 2% OINT 1 GM PACKET TOPICAL SCH ×3 (06:27→17:16)
[2017-02-12] MEDS ORDERED: GLIMEPIRIDE 4 MG TAB PO SCH (07:00)
[2017-02-12] MEDS: ISOSORBIDE MONONITRATE 60 MG TAB PO SCH (07:47)
[2017-02-12] MEDS: RESP: ALBUTEROL 2.5 MG/IPRATROPIUM 0.5 MG NEB (PRN) NEB (07:47)
[2017-02-12] MEDS: GLIMEPIRIDE 4 MG TAB PO SCH ×2 (07:48→17:00)
--- NOTE | 2017-02-12 07:54 | HHI.HP ---
HPI Service [facility] Hospitalists Primary Care Physician Caroline Smalls MD Admission Diagnosis CP R/O VT, TACHYCARDIA, FREQUENT PVC'S Chief Complaint: chest pain Travel History International Travel<30 Days: No Contact w/Intl Traveler <30 Da: No Traveled to Known Affected Are: No History of Present Illness This is an 81 year old male patient with a past medical history which includes: type 2 diabetes mellitus and takes oral agents for this, hypertension, hyperlipidemia, Gastroesophageal reflux disease, BPH, Erectile dysfunction s/p penile implant, osteoarthritis, Lumbar disc disease and stenosis and also CAD with the coronary artery bypass grafting in 1993. He had a cardiac catheterization on 02/10/2014 that showed patent MEDRANO and right internal mammary graft to the LAD and right coronary artery, respectively. He had occluded saphenous vein Y grafts to the ramus intermedius, diagonal branch and posterior ventricular branches of the circumflex. He has been followed by Cardiology and treated with medical management for any angina. Patient was recently admitted and diagnosed with restrictive lung disease 12/30/16 - . Patient presents to the ER last night due to chest pain. Patient reports that the pain initially started in his pelvic region then radiated to his chest. Patient reports that the chest pain was located substernal area 10/10 at its worse, now down to 1/10, after nitroglycerin paste. Patient endorses associated SOB, diaphoresis with nausea but no vomiting last night that has since resolved. Review of Systems Constitutional: DENIES: Diaphoretic episodes, Fatigue, Fever, Chills Eyes: DENIES: Vision loss, Double Vision Respiratory: DENIES: Cough, Sputum production, Shortness of breath Cardiovascular: COMPLAINS OF: Chest pain, Palpitations, Dyspnea on Exertion, Lower Extremity Edema (chronic) Gastrointestinal: DENIES: Abdominal pain, Nausea, Vomiting Neurologic: DENIES: Abnormal gait, Headache, Localized weakness Psychiatric: DENIES: Anxiety, Confusion, Depression Past Family Social History Past Medical History CAD with the coronary artery bypass grafting in 1993. He had a cardiac catheterization on 02/10/2014 that showed patent MEDRANO and right internal mammary graft to the LAD and right coronary artery, respectively. He had occluded saphenous vein Y grafts to the ramus intermedius, diagonal branch and posterior ventricular branches of the circumflex. He has been followed by Cardiology and treated with medical management for any angina. Type 2 diabetes mellitus and takes oral agents for this. hypertension. Hyperlipidemia. Gastroesophageal reflux disease. BPH Erectile dysfunction s/p penile implant Osteoarthritis. Lumbar disc disease and stenosis. Past Surgical History He had an exploratory laparotomy for possible small bowel obstruction but when they opened him up they did not find anything significant. He has had coronary artery bypass x 1993 Colonoscopy on 11/14/2014 with a polyp and an EGD that was normal on 11/14/2014. He had an exploratory laparotomy for possible small bowel obstruction but when they opened him up they did not find anything significant. Reported Medications Duoneb (Ipratropium-Albuterol Neb) 0.5-2.5 Mg/3 Ml Neb 1 Ampule NEB Q6HR WHILE AWAKE NEB PRN 30 Days Isosorbide Mononitrate ER (Isosorbide Mononitrate) 60 Mg Tab 60 Mg PO DAILY Tamsulosin (Tamsulosin HCl) 0.4 Mg Cap 0.4 Mg PO EVENING Nitroglycerin SL (Nitroglycerin) 0.4 Mg Subl 0.4 Mg SL DIRECTED PRN ONE TABLET UNDER THE TONGUE NEEDED FOR CHEST PAIN, MAY REPEAT EVERY FIVE MINUTES FOR A TOTAL OF 3 DOSES OR CALL 911 IF NO RELIEF Multiple Vitamin 1 Tab 1 Tab PO HS Metformin (Metformin HCl) 1,000 Mg Tab 1,000 Mg PO BIDPC With meals Losartan (Losartan Potassium) 50 Mg Tab 50 Mg PO HS Krill Oil Ermine-3 500 mg (Krill Oil) 500 Mg-115 Mg-30 Mg-64 Mg-167 Mg Cap 1 Tab PO DAILY Hydrocodone-Acetaminophen 5-325 mg Tab 1 Tab PO Q6H PRN Hydrochlorothiazide 12.5 Mg Cap 12.5 Mg PO HS Glucosamine-Chondroitin 500-400 Mg Tab 1 Tab PO DAILY Glimepiride 4 Mg Tab 4 Mg PO BIDAC Garlic Oil 1000 (Garlic) 1,000 Mg Cap 1 Cap PO HS Culturelle (Lactobacillus Rhamnosus (GG)) 10 Billion Cell Cap 1 Cap PO DAILY Coreg (Carvedilol) 25 Mg Tab 25 Mg PO BID Coq-10 Tr (Coenzyme Q10 (Ubidecarenone)) 100 Mg Cap 2 Tab PO EVENING Clopidogrel (Clopidogrel Bisulfate) 75 Mg Tab 75 Mg PO HS Belsomra (Suvorexant) 20 Mg Tab 20 Mg PO HS Atorvastatin (Atorvastatin Calcium) 80 Mg Tab 80 Mg PO HS Aspirin EC (Aspirin) 81 Mg Tabdr 81 Mg PO HS Aciphex (Rabeprazole Sodium) 20 Mg Tab 20 Mg PO BID PRN Allergies: Coded Allergies: celecoxib (Unverified Allergy, Severe, REFLUX, 11/19/16) ranolazine (Verified Allergy, Severe, 02/11/17) zolpidem (Verified Allergy, Severe, "CAUSED TO ACT CRAZY", 12/30/16) furosemide (Verified Allergy, Unknown, 12/30/16) Active Ordered Medications Current Medications Medications (Trade) Dose Ordered Sig/Lorie Route Start Time Stop Time Status Last Admin (Ecotrin Ec) 81 mg HS PO 02/12/17 21:00 (Lipitor) 80 mg HS PO 02/12/17 21:00 (Coreg) 25 mg BID PO 02/12/17 09:00 (Plavix) 75 mg HS PO 02/12/17 21:00 (Microzide) 12.5 mg HS PO 02/12/17 21:00 (Weldon 5-325 Mg) 1 tab Q6H PRN PO 02/12/17 00:45 (Duoneb Neb) 1 ampule Q6HR WHILE AWAKE NEB PRN NEB 02/12/17 00:45 (Imdur) 60 mg DAILY@0700 PO 02/12/17 07:00 (Cozaar) 50 mg HS PO 02/12/17 21:00 (Glucophage) 1,000 mg BIDPC PO 02/12/17 09:00 (Nitrostat Sl) 0.4 mg UNSCH PRN SL 02/12/17 00:45 (Protonix) 20 mg BID PRN PO 02/12/17 00:45 (Flomax) 0.4 mg DAILY PO 02/12/17 09:00 (Theragran) 1 tab HS PO 02/12/17 21:00 Non-Formulary Medication 20 mg HS PO 02/12/17 21:00 Future hold (Nitroglycerin 2% Oint) 1 inch Q6HR TOPICAL 02/12/17 06:00 02/12/17 06:27 (NS Flush) 2 ml BID IV FLUSH 02/12/17 09:00 (NS Flush) 2 ml UNSCH PRN IV FLUSH 02/12/17 00:45 (Tylenol) 500 mg Q4H PRN PO 02/12/17 00:45 (Morphine Inj) 2 mg Q4H PRN IV 02/12/17 01:00 (Lovenox Inj) 40 mg Q24H SQ 02/12/17 09:00 (NovoLOG SUPPLEMENTAL SCALE) 1 ACHS SLIDING SCALE SQ 02/12/17 08:00 (D50w (Vial) Inj) 50 ml UNSCH PRN IV PUSH 02/12/17 00:45 (Glucagon Inj) 1 mg UNSCH PRN OTHER 02/12/17 00:45 (Amaryl) 4 mg DAILY@0800,1700 PO 02/12/17 08:00 Family History His mother at 67 of brain cancer. Father at 51 of stomach cancer. Brother had colon cancer. 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 He is . Denies ETOH use Denies current tobacco use, quit smoking several years ago, smoked up to three packs a day for 30 years. Physical Exam Vital Signs Vital Signs Date Time Temp Pulse Resp B/P (MAP) Pulse Ox O2 Delivery O2 Flow Rate FiO2 02/12/17 07:00 90 31 143/89 (107) 97 Nasal Cannula 3.00 02/12/17 06:25 124 22 156/96 (116) 96 Nasal Cannula 3.00 02/12/17 05:25 127 22 149/99 (116) 95 Nasal Cannula 3.00 02/12/17 03:32 124 23 138/87 (104) 96 Nasal Cannula 3.00 02/12/17 01:20 116 23 141/102 (115) 94 Nasal Cannula 3.00 02/12/17 01:10 125 171/114 02/12/17 01:04 Nasal Cannula 3.00 02/12/17 01:00 125 23 171/114 (133) 94 Nasal Cannula 3.00 02/12/17 00:36 125 25 150/116 (127) 95 Nasal Cannula 3.00 02/12/17 00:14 130 25 140/95 (110) 96 Nasal Cannula 3.00 02/11/17 22:32 136 25 169/115 (133) 97 Nasal Cannula 3.00 02/11/17 22:24 136 25 97 Nasal Cannula 3.00 02/11/17 22:24 97 Nasal Cannula 3.00 02/11/17 22:21 25 96 Nasal Cannula 3.00 02/11/17 22:14 97.8 141 25 171/117 (135) 94 Physical Exam GENERAL: This is a well-nourished, well-developed patient, in no apparent distress at this time SKIN: No rashes, ecchymoses or lesions. Cool and dry. HEAD: Atraumatic. Normocephalic. No temporal or scalp tenderness. EYES: Extraocular motions intact. No scleral icterus. No injection or drainage. ENT: Nose without bleeding, purulent drainage or septal hematoma. Throat without erythema, tonsillar hypertrophy or exudate. Uvula midline. Airway patent. NECK: Trachea midline. No JVD or lymphadenopathy. Supple, nontender, no meningeal signs. CARDIOVASCULAR: Regular rate and rhythm RESPIRATORY: Clear to auscultation. Breath sounds equal bilaterally. GASTROINTESTINAL: Abdomen soft, non-tender, nondistended. No hepato-splenomegaly , or palpable masses. No guarding. MUSCULOSKELETAL: Extremities without clubbing, cyanosis, or edema. No joint tenderness, effusion, or edema noted. No calf tenderness. Negative Homans sign bilaterally. NEUROLOGICAL: Awake and alert. No focal deficits noted. Motor and sensory grossly within normal limits. Five out of 5 muscle strength in all muscle groups. Normal speech. Laboratory Laboratory Tests Test 02/11/17 22:17 White Blood Count 7.0 Red Blood Count 3.95 Hemoglobin 10.7 Hematocrit 32.8 Mean Corpuscular Volume 82.9 Mean Corpuscular Hemoglobin 27.1 Mean Corpuscular Hemoglobin Concent 32.7 Red Cell Distribution Width 15.8 Platelet Count 126 Mean Platelet Volume 9.0 Neutrophils (%) (Auto) 75.5 Lymphocytes (%) (Auto) 14.2 Monocytes (%) (Auto) 8.0 Eosinophils (%) (Auto) 1.2 Basophils (%) (Auto) 1.1 Neutrophils # (Auto) 5.3 Lymphocytes # (Auto) 1.0 Monocytes # (Auto) 0.6 Eosinophils # (Auto) 0.1 Basophils # (Auto) 0.1 CBC Comment AUTO DIFF Differential Total Cells Counted 100 Neutrophils % (Manual) 63 Band Neutrophils % 1 Lymphocytes % 19 Monocytes % 6 Eosinophils % 3 Basophils % 2 Neutrophils # (Manual) 4.9 Metamyelocytes 1 Myelocytes 4 Promyelocytes 1 Differential Comment FINAL DIFF MANUAL Platelet Estimate LOW Platelet Morphology Comment NORMAL Ovalocytes 1+ Acanthocytes 1+ Prothrombin Time 10.7 Prothromb Time International Ratio 1.0 Activated Partial Thromboplast Time 29.8 Blood Urea Nitrogen 16 Creatinine 1.12 Random Glucose 194 Total Protein 5.2 Albumin 2.7 Calcium Level 6.4 Alkaline Phosphatase 57 Aspartate Amino Transf (AST/SGOT) 16 Alanine Aminotransferase (ALT/SGPT) 22 Total Bilirubin 0.5 Sodium Level 146 Potassium Level 3.3 Chloride Level 112 Carbon Dioxide Level 24.3 Anion Gap 10 Estimat Glomerular Filtration Rate 63 Protein Corrected Calcium 7.3 Total Creatine Kinase 49 Troponin I 0.02 B-Type Natriuretic Peptide 112 Lipase 175 Result Diagram: 02/11/17221602/11/172216 Caprini VTE Risk Assessment Caprini VTE Risk Assessment: Mod/High Risk (score >= 2) Caprini Risk Assessment Model Point Value = 1 Point Value = 2 Point Value = 3 Point Value = 5 Age 41-60 Minor surgery BMI > 25 kg/m2 Swollen legs Varicose veins or History of unexplained or recurrent spontaneous Oral contraceptives or hormone replacement Sepsis (< 1 month) Serious lung disease, including pneumonia (< 1 month) Abnormal pulmonary function Acute myocardial infarction Congestive heart failure (< 1 month) History of inflammatory bowel disease Medical patient at bed rest Age 61-74 Arthroscopic surgery Major open surgery (> 45 min) Laparoscopic surgery (> 45 min) Malignancy Confined to bed (> 72 hours) Immobilizing plaster cast Central venous access Age >= 75 History of VTE Family history of VTE Factor V Leiden Prothrombin [id number] Lupus anticoagulant Anticardiolipin antibodies Elevated serum homocysteine Heparin-induced thrombocytopenia Other congenital or acquired thrombophilia Stroke (< 1 month) Elective arthroplasty Hip, pelvis, or leg fracture Acute spinal cord injury (< 1 month) Prophylaxis Regimen Total Risk Factor Score Risk Level Prophylaxis Regimen 0-1 Low Early ambulation 2 Moderate Order ONE of the following: *Sequential Compression Device (SCD) *Heparin 5000 units SQ BID 3-4 Higher Order ONE of the following medications: *Heparin 5000 units SQ TID *Enoxaparin/Lovenox 40 mg SQ daily (WT < 150 kg, CrCl > 30 mL/min) *Enoxaparin/Lovenox 30 mg SQ daily (WT < 150 kg, CrCl > 10-29 mL/min) *Enoxaparin/Lovenox 30 mg SQ BID (WT < 150 kg, CrCl > 30 mL/min) AND/OR *Sequential Compression Device (SCD) 5 or more Highest Order ONE of the following medications: *Heparin 5000 units SQ TID (Preferred with Epidurals) *Enoxaparin/Lovenox 40 mg SQ daily (WT < 150 kg, CrCl > 30 mL/min) *Enoxaparin/Lovenox 30 mg SQ daily (WT < 150 kg, CrCl > 10-29 mL/min) *Enoxaparin/Lovenox 30 mg SQ BID (WT < 150 kg, CrCl > 30 mL/min) AND *Sequential Compression Device (SCD) Assessment and Plan Problem List: (1) Chest pain ICD Codes: R07.9 - Chest pain, unspecified Status: Acute Plan: Chest pain with a history of CAD s/p CABG x5 1993 NSTEMI initial EKG reveals RBBB left anterior fascicular block and tachycardia initial troponin <0.02 repeat troponin 38.90 nitroglycerin paste applied cardiology consulted, discussed with cardiology Dr. Negron request heparin drip and NPO after midnight for cardiac cath in AM Patient also on aspirin daily continue patient's home Coreg, Lipitor, Imdur 60 mg PO daily and Plavix lipid profile on AM Tachycardia initial EKG reveals RBBB and tachycardia Patient given Cardizem IV push x 1 in ER current HR in the 90s- will continue to monitor HTN continue patient's home medication and monitor BP trend Hyperlipemia continue patient's home Lipitor DM type 2 will hold patient's home metformin and glimepiride with Accu checks ACHS with SSI coverage DVT prophylaxis with Lovenox (2) CAD (coronary artery disease) ICD Codes: I25.9 - CAD (coronary artery disease) Status: Chronic (3) Tachycardia ICD Codes: R00.0 - Tachycardia, unspecified (4) HTN (hypertension) ICD Codes: I10 - HTN (hypertension) Status: Chronic (5) Hyperlipidemia ICD Codes: E78.5 - Hyperlipidemia Status: Chronic (6) Type 2 diabetes mellitus ICD Codes: E11.9 - Type 2 diabetes mellitus without complications Status: Chronic Assessment and Plan Patient examined. Assessment and plan formulated with Annette Cevallos PA-C. I agree with the above. Problem Qualifiers (1) Chest pain: Qualified Codes: R07.9 - Chest pain, unspecified Annette Cevallos Feb 12, 2017 07:54 Marco Rueda DO Feb 15, 2017 12:42
[2017-02-12] MEDS: SODIUM CHLORIDE 0.9% FLUSH 10 ML FLUSH IV FLUSH SCH ×2 (08:03→21:00)
[2017-02-12] MEDS: INSULIN ASPART SUPPLEMENTAL SCALE SQ SCH ×4 (08:03→21:14)
[2017-02-12 08:45] LABS: BASOPHIL % 0.3 % (0.0-2.0); EOSINOPHIL % 0.1 % (0.0-4.0); HEMATOCRIT 42.6 % (39.0-51.0); LYMPH % 6.8 % (9.0-44.0); LYMPHOCYTE # 0.8 TH/MM3 (1.0-4.8); MEAN CELL VOLUME 82.8 FL (80.0-100.0); MEAN CORPUSCULAR HEMOGLOBIN 26.6 PG (27.0-34.0); MEAN CORPUSCULAR HGB CONC 32.1 % (32.0-36.0); MONO % 5.2 % (0.0-8.0); NEUT % 87.6 % (16.0-70.0); PLATELET COUNT 190 TH/MM3 (150-450); RED BLOOD COUNT 5.14 MIL/MM3 (4.50-5.90); RED CELL DISTRIBUTION WIDTH 15.5 % (11.6-17.2); WHITE BLOOD COUNT 11.4 TH/MM3 (4.0-11.0)
[2017-02-12] MEDS ORDERED: metFORMIN HCL 500 MG TAB PO SCH (09:00)
[2017-02-12] MEDS ORDERED: ENOXAPARIN SODIUM 40 MG/0.4 ML SYRINGE SQ SCH (09:00)
[2017-02-12] MEDS ORDERED: POTASSIUM CHLORIDE 20 MEQ CONTROLLED RELEASE TAB PO ONE (09:00)
[2017-02-12] MEDS ORDERED: NON-FORMULARY DRUG (Lactobacillus Rhamnosus (GG) (Culturelle) 1 CAP) PO SCH (09:00)
[2017-02-12] MEDS ORDERED: KRILL OIL PO SCH (09:00)
--- NOTE | 2017-02-12 09:28 | EKG ---
Date Performed: 02/12/2017 Time Performed: 07:23:55 PTAGE: 81 years EKG: ATRIAL FIBRILLATION WITH ABERRANT CONDUCTION OR VENTRICULAR PREMATURE COMPLEXES RIGHT BUNDL E BRANCH BLOCK INFERIOR MYOCARDIAL INFARCTION ABNORMAL ECG PREVIOUS TRACING : 02/12/2017 04.45 DOCTOR: Foster Aguila Interpretating Date/Time 02/12/2017 09:26:59
--- NOTE | 2017-02-12 09:30 | EKG ---
Date Performed: 02/12/2017 Time Performed: 04:45:46 PTAGE: 81 years EKG: PROBABLE SINUS TACHYCARDIA RIGHT BUNDLE BRANCH BLOCK LEFT ANTERIOR FASCICULAR BLOCK ST DEPR ESSION, CONSIDER SUBENDOCARDIAL INJURY ABNORMAL ECG PREVIOUS TRACING : 12/30/2016 15.39 DOCTOR: Foster Aguila Interpretating Date/Time 02/12/2017 09:30:23
[2017-02-12 09:35] LABS: BICARBONATE 29.4 MEQ/L (21.0-32.0); POTASSIUM 4.6 MEQ/L (3.5-5.1)
[2017-02-12 09:38] LABS: HEMO FLAGS AUTO DIFF
--- NOTE | 2017-02-12 09:39 | EKG ---
Date Performed: 02/11/2017 Time Performed: 22:16:37 PTAGE: 81 years EKG: SINUS TACHYCARDIA MARKED RIGHT AXIS DEVIATION RIGHT BUNDLE BRANCH BLOCK MARKED ST DEPRESSIO N, CONSIDER SUBENDOCARDIAL INJURY ABNORMAL ECG NO PREVIOUS TRACING DOCTOR: Foster Aguila Interpretating Date/Time 02/12/2017 09:35:03
[2017-02-12] MEDS: CARVEDILOL 12.5 MG TAB PO SCH ×2 (09:55→21:13)
[2017-02-12] MEDS: TAMSULOSIN HCL 0.4 MG CAP PO SCH (09:55)
[2017-02-12 10:14] LABS: BANDS 13 % (0-6); METAMYELOCYTES 3 % (0-1); NEUTROPHIL # MANUAL DIFF 10.6 TH/MM3 (1.8-7.7); POLYS (SEG NEUTROPHILS) 77 % (16-70); WBC DIFF SAMPLE 100
[2017-02-12 10:15] LABS: ACANTHOCYTES 1+ (NORMAL); OVALOCYTES 1+ (NORMAL); PLATELET ESTIMATE SMEAR NORMAL (NORMAL); PLATELET MORPHOLOGY NORMAL (NORMAL); SCAN/DIFF FINAL DIFF MANUAL
[2017-02-12] MEDS ORDERED: BUMETANIDE INJ 1 MG/4 ML VIAL IV PUSH ONE ×2 (10:30→18:00)
[2017-02-12] MEDS ORDERED: MIDAZOLAM HCL 2 MG/2 ML VIAL IV PUSH SCH (11:45)
[2017-02-12] MEDS ORDERED: diphenhydrAMINE HCL 50 MG CAP PO SCH (11:45)
--- NOTE | 2017-02-12 12:09 | MB ---
cc: BECK CARPENTER M.D. DATE OF CONSULTATION February 12, 2017 REASON FOR CONSULTATION Chest pain and ASHD. HISTORY Mr. Elliott is an 81-year-old obese white male well-known to me with history of coronary artery disease, chronic stable angina pectoris, diabetes mellitus type 2, who presented to the emergency room last evening because of complaints of chest discomfort. The patient tells me that he was having a bowel movement yesterday around 09:00 p.m. and began having pain in his pelvic area. This pain slowly radiated up through his abdomen and into his chest. This discomfort persisted and he is still feeling some of this this morning about 12 hours later. He was initially evaluated in the emergency room. His initial cardiac enzymes were negative. His EKG except for tachycardia did not show any significant ST elevation. His heart rate was between 120 and 130 on arrival and his blood pressure was elevated. He was initially treated with intravenous diltiazem and I see, according to the records, he was also given an amiodarone 150 mg bolus. Reviewing the EKGs, however, I do not feel he was in atrial fibrillation. His heart rate has slowly come down overnight. His initial cardiac enzymes were negative but a second set showed an elevated troponin I of 38.9. He tells me he has been taking all of his medications as directed at home and has not missed any doses. He has had some history of noncompliance with medications and recommendations in the past. PAST MEDICAL HISTORY Significant for that mentioned above including - 1. Diabetes mellitus type 2. 2. Metabolic syndrome. 3. Obesity. 4. Hyperlipidemia. 5. Poor compliance with medications and recommendations. ALLERGIES None known. CURRENT MEDICATIONS 1. Aspirin 81 mg daily. 2. Lipitor 80 mg at bedtime. 3. Plavix 75 mg at bedtime. 4. Hydrochlorothiazide 12.5 mg daily. 5. Cozaar 50 mg at bedtime. 6. He has been given a dose of 40 mg of Lovenox on arrival subcutaneously and has been started on intravenous heparin infusion this morning. 7. Potassium supplements. 8. Metformin 1000 mg b.i.d. 9. Flomax 0.4 mg daily. 10. Amaryl 4 mg daily. 11. Isosorbide mononitrate 60 mg daily. 12. Nitro paste 1 inch chest wall q.6 hours. 13. He has been given morphine and hydrocodone for pain relief. 14. Acetaminophen 500 mg q.4 hours p.r.n. 15. Albuterol ipratropium. 16. DuoNeb nebulizers q.6 hours p.r.n. 17. Protonix 20 mg p.o. b.i.d. 18. Intravenous dose of Diltiazem last night in the emergency room. 19. Amiodarone last night in the emergency room. PAST SURGICAL HISTORY 1. He has had cardiac catheterization multiple times in the past. 2. Coronary bypass grafting x 6 vessels back on December 12, 1993. That consisted of a left internal mammary graft to the LAD. Right internal mammary graft to the RCA. A vein graft Y-graft to the first and second diagonal branch and two obtuse marginal branches. 3. Cardiac catheterization subsequently on February 10, 2014, at the time of a myocardial infarction revealed only two patent grafts, the left and right internal mammary artery grafts; that was status post [id number] myocardial infarction. He was recommended initially continued medical management due to moderate diffuse disease and concerns about the need for complex intervention. He has done reasonably well since that time, although has declined any repeat cardiac catheterizations for repeat evaluation. 4. Exploratory laparotomy. SOCIAL HISTORY The patient denies tobacco, alcohol or illicit drug use. He was a cigarette smoker, smoked three packs of cigarettes a day for 20-25 years, quit in 1971. He is , living with his . He does no regular exercise. FAMILY HISTORY Father at age 52 of cancer. Mother at 67 with cancer. REVIEW OF SYSTEMS He has some had some recent increasing lower extremity edema. Complaints of dyspnea on exertion. Denies orthopnea or PND type symptoms. He did have a recent hospitalization about a month ago for bronchitis down at [facility]; he says he was there for 4 days but had been feeling better since then until this week. He has been having some spasms upon urination with pain in his pelvic area. He denies any fevers, chills, night sweats, nausea, vomiting, diarrhea. He denies any palpitations, lightheadedness or syncope. Except for that mentioned in the HPI a complete 12-point review of systems otherwise negative. PHYSICAL EXAMINATION GENERAL: Physical exam reveals an elderly obese white male lying in bed in no distress at this time. VITAL SIGNS: Blood pressure 139/68 mmHg, heart rate is 92 and regular, respiratory rate 31, temperature is 97.8, oxygen saturation 96% on 3 liters nasal cannula. HEAD: Normocephalic and atraumatic. EYES: Pupils equal, round, reactive to light. Sclerae anicteric. Extraocular movements intact. NECK: Supple. There is no adenopathy. No jugular venous distention noted at 90 degrees. Carotid upstrokes normal. No bruits. Thyroid exam is normal. LUNGS: Clear. Heart: The PMI is not displaced. S1-S2 are normal. I hear no murmurs, gallops, clicks or rubs. ABDOMEN: Obese and protuberant. Normal bowel sounds. There is no hepatosplenomegaly, masses or bruits. No rebound or pain or discomfort with palpation. EXTREMITIES: No cyanosis or clubbing. There is +2 pretibial pitting edema above the knees bilaterally. CHEST X-RAY From last night showed cardiomegaly with pulmonary vascular engorgement, bibasilar consolidations likely related to the intra-alveolar pulmonary edema. LABORATORY DATA His initial CBC showed a white count of 7.0, hemoglobin of 10.7, hematocrit 32.8, platelet count of 126,000 last night at 22:00 hours. This morning at 08:06 his CBC is now changed. His white count is up to 11.4 with 87.6% neutrophils and 6.8% lymphocytes. His hemoglobin has now normalized at 13.7 with hematocrit of 42.6 and a platelet count of 190,000. He did not receive any blood products last night to explain that. Chemistries: Initially his potassium was 3.3. His current basic metabolic profile showed sodium of 138, potassium 4.6, chloride 102, CO2 29.4, BUN 22, creatinine 1.27, calcium 9.0, AST 16, his troponin-I on admission was 0.02 with a total CPK of 49. His repeat troponin I at 08:06 this morning was 38.9. Repeat labs are pending later today. Lipase 175. Coags were normal. An EKG initially shows sinus tachycardia on arrival last night, heart rate 137, right bundle branch block. There is anterior and high lateral ST depression consistent with ischemia and left axis deviation with left anterior fascicular block. Repeat EKG this morning at 6 o'clock shows a sinus tachycardia of 123, right bundle branch block with left anterior fascicular block. The anterior lateral ST depression has improved. IMPRESSION 1. ASHD with acute coronary syndrome and suspected non-ST elevation myocardial infarction. 2. Status post remote CABG December 22, 1993, with patent left and right internal mammary grafts to the LAD and RCA respectively on cardiac catheterization February 10, 2014. 3. Diabetes mellitus type 2. 4. Abnormal EKG with chronic right bundle branch block and left anterior fascicular block. 5. Medication and recommendation compliance issues. 6. Mild diastolic congestive heart failure. 7. Obesity and sedentary lifestyle. RECOMMENDATIONS It is noted the patient was recommended CT scanning to exclude the possibility of dissecting aortic aneurysm last night and declined that study. Considering his tachycardia on admission and cardiac enzyme findings this morning I suspect he has had a type 2 myocardial infarction. Although he states he has been taking all his medications, he has a history of noncompliance. I am recommending repeat cardiac catheterization at this point in any case to reevaluate the situation to see if anything has changed since 2013 to determine if any other intervention or treatments would be helpful. He has been placed on intravenous heparin, his beta miracle and ARB have been restarted. His aspirin and Plavix have been restarted. He will continue on oral and topical nitrates. I discussed the indications, benefits, risks, alternatives of cardiac catheterization and possible PCI with the patient and his . He is now agreeing to proceed with this. He will be n.p.o. after midnight tonight for planned diagnostic catheterization in the morning. Orders have been written and consents will be signed. Further recommendations will follow his test results. I have discussed the case in detail with the nursing staff in the emergency room as well as Dr. Jaspreet Rueda, the hospitalist who will be following him on the case as well. I thank you for allowing me to participate in the care of this patient. MD STEFFANY Figueroa/AMANDA /11:27 AM /11:53 AM
[2017-02-12] MEDS ORDERED: HEPARIN-D5W 25,000 U/250 ML 250 ML IV PRN (12:30)
[2017-02-12] MEDS: POTASSIUM CHLORIDE 20 MEQ CONTROLLED RELEASE TAB PO SCH ×2 (13:00→17:17)
[2017-02-12 13:06] LABS: HEMATOCRIT 39.5 % (39.0-51.0); MEAN CELL VOLUME 81.4 FL (80.0-100.0); MEAN CORPUSCULAR HEMOGLOBIN 26.8 PG (27.0-34.0); PLATELET COUNT 174 TH/MM3 (150-450); RED BLOOD COUNT 4.85 MIL/MM3 (4.50-5.90); RED CELL DISTRIBUTION WIDTH 15.2 % (11.6-17.2); REVIEW FLAG FINAL; WHITE BLOOD COUNT 11.1 TH/MM3 (4.0-11.0)
[2017-02-12 13:16] LABS: APTT (PATIENT) 29.9 SEC (24.3-30.1); PROTHROMBIN TIME - PATIENT 11.5 SEC (9.8-11.6)
[2017-02-12] MEDS ORDERED: HEPARIN SODIUM - IV 10,000 UNITS/10 ML VIAL IV PRN ×2 (16:15)
[2017-02-12 16:17] LABS: POTASSIUM 4.1 MEQ/L (3.5-5.1)
[2017-02-12 16:22] LABS: MAGNESIUM 1.6 MG/DL (1.5-2.5)
[2017-02-12 16:37] LABS: CALCIUM-PROTEIN CORRECTED 9.3 MG/DL (8.5-10.1); CREATINE KINASE 1407 U/L (39-308)
[2017-02-12 17:02] LABS: CKMB 162.2 NG/ML (0.5-3.6)
[2017-02-12 17:36] LABS: APTT (PATIENT) 34.7 SEC (24.3-30.1)
[2017-02-12] MEDS ORDERED: LOSARTAN 50 MG TAB PO SCH (21:00)
[2017-02-12] MEDS ORDERED: GARLIC PO SCH (21:00)
[2017-02-12] MEDS ORDERED: HYDROCHLOROTHIAZIDE 12.5 MG CAP PO SCH (21:00)
[2017-02-12] MEDS ORDERED: SUVOREXANT 20 MG PO SCH (21:00)
[2017-02-12] MEDS: CLOPIDOGREL 75 MG TAB PO SCH (21:13)
[2017-02-12] MEDS: ATORVASTATIN 80 MG TAB PO SCH (21:13)
[2017-02-12] MEDS: MULTIVITAMIN TAB PO SCH (21:13)
[2017-02-12] MEDS: ASPIRIN EC 81 MG TABEC PO SCH (21:13)
[2017-02-12 22:00] LABS: APTT (PATIENT) 34.4 SEC (24.3-30.1)
[2017-02-13] VITALS (25 sets, daily range): BP systolic 104–145; BP diastolic 54–75; PULSE 77–104; RESP 18–22; TEMP 97.5–98.5; O2SAT 95–98
[2017-02-13 02:25] LABS: AUTOMATED NEUTROPHIL # 8.7 TH/MM3 (1.8-7.7); BASOPHIL % 0.4 % (0.0-2.0); EOSINOPHIL % 0.4 % (0.0-4.0); HEMATOCRIT 38.5 % (39.0-51.0); HEMO FLAGS DIFF FINAL; LYMPH % 8.9 % (9.0-44.0); LYMPHOCYTE # 0.9 TH/MM3 (1.0-4.8); MEAN CELL VOLUME 81.6 FL (80.0-100.0); MEAN CORPUSCULAR HEMOGLOBIN 27.2 PG (27.0-34.0); MEAN CORPUSCULAR HGB CONC 33.3 % (32.0-36.0); MONO % 8.5 % (0.0-8.0); NEUT % 81.8 % (16.0-70.0); PLATELET COUNT 149 TH/MM3 (150-450); RED BLOOD COUNT 4.72 MIL/MM3 (4.50-5.90); RED CELL DISTRIBUTION WIDTH 15.8 % (11.6-17.2); WHITE BLOOD COUNT 10.6 TH/MM3 (4.0-11.0)
[2017-02-13 02:30] LABS: APTT (PATIENT) 40.2 SEC (24.3-30.1)
[2017-02-13 02:36] LABS: BICARBONATE 29.4 MEQ/L (21.0-32.0); POTASSIUM 3.9 MEQ/L (3.5-5.1)
[2017-02-13 02:38] LABS: HDL CHOLESTEROL 37.4 MG/DL (40.0-60.0)
[2017-02-13] MEDS: NITROGLYCERIN 2% OINT 1 GM PACKET TOPICAL SCH ×2 (05:54)
[2017-02-13] MEDS: ISOSORBIDE MONONITRATE 60 MG TAB PO SCH (05:54)
[2017-02-13] MEDS ORDERED: MIDAZOLAM HCL 2 MG/2 ML VIAL ONE (07:23)
[2017-02-13] MEDS ORDERED: HEPARIN SODIUM - IV 10,000 UNITS/10 ML VIAL ONE (07:59)
[2017-02-13] MEDS ORDERED: HEPARIN-NS/PF INJ 500 ML ONE (07:59)
[2017-02-13] MEDS ORDERED: CLOPIDOGREL 75 MG TAB ONE (08:30)
--- NOTE | 2017-02-13 08:57 | CATHPROC ---
[employer] HIS Report Study Information Study Number Admission Scheduled Start Study Start [id number] Feb 12 2017 9:54AM 02/12/2017 Feb 13 2017 6:59AM [facility] Cardiac Catheterization Admit Source Facility Department Other [facility] - Gate Technician Physician and Clinical Staff Initial MD Negron, Leland Merchandise Examiner Wyatt RN, Albert Recorder Lorena Marie,RT(R) Scrub Raymundo, Janis,KENO WRITER/RUNNER TECH2 Procedures Performed Procedure Location (Site) Vessel Name Angiogram LV LV Ventricle Coronary Angiograms LCA Left Coronary Coronary Angiograms RCA Right Coronary Coronary Angiograms MEDRANO-LAD Left Coronary Coronary Angiograms SAVANNAH Graft Right Coronary Drug Eluting Inflatio CIRC Prox CIRC L Heart Cath PTCA CIRC Prox CIRC PTCA ADD ON'S Wire insertion Fem Art (right) Femoral Art Equipment Time Cash Office Worker Description Size Mfg Part Number Used/Scraped STENT, 2.75 X 15MM XIENCE [id number] 08:13 ANDRES [employer] CARE 2.75 X 15 Used ALPINE *[id number] TRANSDUCER, TRUWAVE [id number] 07:13 LAMAS ROBLES * Used W/STOCKCOCK *[id number] 07:59 BOSTON SCIENT[employer] WIRE, LUGE 182CM 182CM Used *[id number] 07:59 BOSTON SCIENT[employer] WIRE, LUGE 182CM 182CM Used *[id number] 08:26 CARDIVA MEDICAL VASCADE, FR6 CLOSURE SYSTEM FR 6\7 Used *[id number] 534-676T *[id number] 534-660T *4454013 534-620T *6460489 534-617T *8976039 534-621T *6329425 534-642T *4716417 534-650S *[id number] [id number] *[id number] WIRE, HYDROSTEER 150CM [id number] 07:39 DAIG/ST. TAMIKO MEDICAL 150CM Used ANGLED GLIDE *[id number] 07:13 MEDLINE INDUSTRIES PACK, CCL CUSTOM * Used *[id number] 07:13 MEDLINE PACER PEN, SKIN DUAL W/ RULER * Used *[id number] BALLOON, 2.75 X 12MM NC [id number] 08:08 MEDTRONIC 12MM Used EUPHORA *[id number] 07:59 Runnit MEDICAL 30 KEMI INDEFLATOR Used *[id number] 07:13 Runnit MEDICAL SHEATH, FR6.5 PRELUDE 11CM FR 6.5 038ACT Used *[id number] 07:13 Runnit MEDICAL WIRE, 3MMJ .035 180CM 180CM Used *[id number] 07:13 NAMIC MANIFOLD, 4 PORT * Used *[id number] 07:13 NYCOMED OMNIPAQUE, 350 MG, 150ML 150ML [id number] Used [id number] 07:13 CARDENAS MEDICAL BLANKET,WARM AIR CCL * Used *[id number] 07:27 TERUMO MEDICAL SHEATH, FR6 TERUMO (10CM) FR 6 Used *[id number] Equipment Model, Serial, Lot Number and Expiration Data Description Model Number Serial Number Lot Number Expiration Date BALLOON, 2.75 X 12MM NC [id number] 11-22-2018 EUPHORA STENT, 2.75 X 15MM XIENCE [id number] 12-25-2018 ALPINE WIRE, HYDROSTEER 150CM [id number] 10-05-2019 ANGLED GLIDE History: Current Medications Medication Dosage/Unit Route Frequency Last Date/Time Taken ASA Beta Erin LOVENOX PLAVIX CARVEDILOL HCTZ Glucophage Imdur History: Risk Factors Family History of Hypertension Dyslipidemia Previous PA Previous Heart Failure Premature CAD Yes Yes No Yes No Prior Valve Prior PCI Prior CABG Prior CABGDate Surgery No No Yes 04/07/1993 Cerebrovascular Peripheral Artery Chronic Lung On Dialysis Diabetes Diabetes Therapy Disease Disease Disease No No No No Yes Oral History: Stress Tests Stress or Imaging Studies Performed No History: Other Current Smoker Method Quit Packs a Day Years Used Pack Years No Cigarettes 40 Years Ago 3 25 75 Labs Hgb (g/dl) Hct (%) WBC (l/cumm) Platelets (thousands) 11.60-17.00 35.00-51.00 4.00-11.00 150.00-450.00 12.8 38.5 10.6 149 Glucose (mg/dl) BUN (mg/dl) Creatinine (mg/dl) BUN:Creatinine (1:x) 74.00-106.00 7.00-18.00 0.50-1.30 10.00-20.00 172 21 1.3 16.2 Na (meq/l) K (meq/l) 136.00-145.00 3.50-5.10 140 3.9 Troponin I (ng/ml) CPK (u/l) CPK-MB (ng/ML) 0.02-0.05 26.00-308.00 0.50-3.60 40 1407 99.0 Medication Medication Total Dose (Bolus/Oral) Medication Total Dosage/Unit 1% XYLOCAINE 20 mL FENTANYL 100 mcg HEPARIN 5000 units NTG (IC) 400 mcg PLAVIX 150 mg VERSED 2 mg Medications (Bolus/Oral) Medication Time Given Dosage/Unit Administered By Reason VERSED 02/13/2017 7:22:54 AM 2 mg Albert Nj RN 2 mg VERSED given in lab by Albert Nj RN in Right Forearm via Peripheral IV. 1% XYLOCAINE 02/13/2017 7:23:34 AM 20 mL Leland Negron 20 mL 1% XYLOCAINE given in lab by Leland Negron via Subcutaneous. FENTANYL 02/13/2017 7:24:23 AM 50 mcg Albert Nj RN 50 mcg FENTANYL given in lab by Albert Nj RN via Peripheral IV. HEPARIN 02/13/2017 7:58:30 AM 5000 units Albert Nj RN 5000 units HEPARIN given in lab by Albert Nj RN via Peripheral IV. NTG (IC) 02/13/2017 8:03:01 AM 100 mcg Janis Fonseca 100 mcg NTG (IC) given in lab by Janis Fonseca RRT TECH2 via Intra-coronary. NTG (IC) 02/13/2017 8:12:59 AM 100 mcg Janis Fonseca 100 mcg NTG (IC) given in lab by Janis Fonseca RRT TECH2 via Intra-coronary. FENTANYL 02/13/2017 8:13:26 AM 50 mcg Albert Nj RN 50 mcg FENTANYL given in lab by Albert Nj RN via Peripheral IV. NTG (IC) 02/13/2017 8:18:15 AM 200 mcg Leland Negron 200 mcg NTG (IC) given in lab by Leland Negron via Intra-coronary. PLAVIX 02/13/2017 8:30:16 AM 150 mg Albert Nj RN 150 mg PLAVIX given in lab by Albert Nj RN via Oral. Medication (Drip) Medication Time Given Dosage/Unit Concentration/Unit Diluent (ml) Solution IV Solutions 02/13/2017 6:58:55 AM 0 mL (IV) 500 NaCl .9 IV Solutions given by Albert Nj RN in Right Forearm via Peripheral IV. Pump/Drip Flow = 20 ml/hr u sing NaCl .9. Initial Case Assessment Cardiovascular HR Rhythm Chest Pain 83 reg 0 Edema Present Skin color Skin None Normal Warm Circulatory - Right Pulses Dorsalis Pedis Femoral 1 1 Scale (0,1,2,3,4,d) Circulatory - Left Pulses Dorsalis Pedis Femoral 1 1 Scale (0,1,2,3,4,d) Circulatory - Lower Extremities Color Lower Right Color Lower Left Normal Normal Neurological State Oriented to time-place- Alert Moves all extremities person Respiration - General Respiration Rate SpO2 (%) O2 (lpm) Short Of Breath (B/min) 26 93 2 Yes Final Case Assessment Cardiovascular HR Rhythm NIBP 93 reg 139/80 Edema Present Skin color Skin None Normal Warm Circulatory - Right Pulses Dorsalis Pedis Femoral 1 1 Scale (0,1,2,3,4,d) Circulatory - Left Pulses Dorsalis Pedis Femoral 1 1 Scale (0,1,2,3,4,d) Neurological State Oriented to time-place- Alert Moves all extremities person Respiration - General Respiration Rate SpO2 (%) (B/min) 28 93 Chronological Log Time Study Chronological Log 6:58:45 Patient arrived via Bed. 6:58:46 Patient Name, D.O.B, / Armband Verified By R.N. 6:58:46 Consent signed by the physician and the patient and verified by the Gate Technician staff. 6:58:46 Pre-op and post- op instructions given; patient acknowledges understanding of instructions. 6:58:47 Verbal Stimulation=2 Physical Stimulation=2 Airway=2 Respiration=2 TOTAL=8. (0=absent, 1=li mited, 2=present) 6:58:48 Presedation assessment performed by Gate Technician RN. 6:58:49 Immediate Presedation assesment performed by physician. 6:58:50 Patient has been NPO for More than 6Hrs. 6:58:52 Skin Breakdown-none 6:58:53 Patient Warmer Placed on the Table. 6:58:53 Shanda Prominences Protected 6:58:55 A # 20 IV was noted in the Forearm (right). Grade = 0 6:58:55 IV Solutions given by Albert Nj RN in Right Forearm via Peripheral IV. Pump/Drip Flow = 20 ml/hr using NaCl .9. 6:58:56 History and physical on the chart or being dictated. 7:09:31 Bilateral groins prepped with 2% chlorhexidine, and draped after a 3 minute waiting time. Vitals capture started with the following parameters, Patient=Adult, Interval=5 min, Initial Pr jedmsv=983 mmHg, 7:09:45 Deflation Rate=5 mmHg, Cuff placed on Left Arm 7:10:06 Vitals capture stopped. Vitals capture started with the following parameters, Patient=Adult, Interval=5 min, Initial Pre ecidl=364 mmHg, 7:14:14 Deflation Rate=5 mmHg, Cuff placed on Left Arm 7:14:51 HR=81 bpm, VFHH=071/76 mmhg, SpO2=94.0 %, Resp=20 B/min, Pain=0, Chay=10, Maria=2 7:16:46 Pressure channel 1 zeroed. 7:19:50 HR=80 bpm, QWVU=615/72 mmhg, SpO2=94.0 %, Resp=36 B/min, Pain=0, Chay=10, Maria=2 Time Out. Correct patient, correct procedure, correct physician, power injector not loaded with contrast with surgical 7:21:37 team present. Time Out Concurred by MD and individual staff in procedure. 7:21:40 Reference ECG taken 7:22:13 heparin discontinued 6:50 am in pts room 7:22:28 Case Start 7:22:54 2 mg VERSED given in lab by Albert Nj RN in Right Forearm via Peripheral IV. 7:23:34 20 mL 1% XYLOCAINE given in lab by Leland Negron via Subcutaneous. 7:24:23 50 mcg FENTANYL given in lab by Albert Nj RN via Peripheral IV. Assessment: Initial Case, HR=83 BPM, Rhythm=reg, Chest Pain=0, Edema=None, Color=Normal, Skin = Warm Right Pulses: Jean Ped=1, Femoral=1 Left Pulses: Jean Ped=1, Femoral=1 7:24:35 Lower Right Extremities: Color=Normal Lower Left Extremities: Color=Normal Neurological: State=Alert, Ox3, [place] Respiration: Resp=26 B/min, SpO2=93 %, O2=2 lpm, Short of Breath 7:24:51 HR=84 bpm, UFFP=069/68 mmhg, SpO2=93.0 %, Resp=42 B/min, Pain=0, Chay=10, Maria=2 7:25:41 Access site was Right Femoral Artery. 7:25:53 A wire was inserted via Fem Art (right). 7:25:55 A SHEATH, FR6.5 PRELUDE 11CM FR 6.5 was advanced into the Fem Art (right) using the Percutan eous technique. A JL 4.5 INFINITI CATHETER FR 6 was advanced over a wire. OMNIPAQUE, 350 MG, 150ML 150ML was use d for 7:29:10 injections. 7:29:52 HR=86 bpm, EYSE=815/65 mmhg, SpO2=94.0 %, Resp=31 B/min, Pain=0, Chay=10, Maria=2 Recorded Pressure: Ao, HR=83, Condition=Condition 1 7:30:26 (Aorta) Ao 110/63/84 7:30:54 The LCA was injected and visualized at various angles. OMNIPAQUE, 350 MG, 150ML 150ML used. After removing the current catheter a JR 4.0 INFINITI CATHETER FR 6 was advanced over a WIRE, 3M MJ .035 180CM 7:32:55 180CM. 7:34:51 HR=89 bpm, KBAN=490/74 mmhg, SpO2=94.0 %, Resp=33 B/min, Pain=0, Chay=10, Maria=2 7:37:21 The RCA was injected and visualized at various angles. OMNIPAQUE, 350 MG, 150ML 150ML used. 7:39:52 HR=84 bpm, VNAK=350/72 mmhg, SpO2=96.0 %, Resp=30 B/min, Pain=0, Chay=10, Maria=2 7:41:59 The SAVANNAH Graft was injected and visualized at various angles. OMNIPAQUE, 350 MG, 150ML 150ML used. 7:43:11 A WIRE, HYDROSTEER 150CM ANGLED GLIDE 150CM was inserted via Fem Art (right). 7:44:53 HR=82 bpm, HPUM=483/69 mmhg, SpO2=97.0 %, Resp=29 B/min, Pain=0, Chay=10, Maria=2 7:47:08 The previous wire was exchanged for a WIRE, 3MMJ .035 180CM 180CM. 7:47:48 Wire removed 7:48:28 The MEDRANO-LAD was injected and visualized at various angles. OMNIPAQUE, 350 MG, 150ML 150ML u sed. 7:49:52 HR=81 bpm, YWVU=393/72 mmhg, SpO2=97.0 %, Resp=33 B/min, Pain=0, Chay=10, Maria=2 7:50:01 power injector loaded now by erika nj and verified by manda fonseca After removing the current catheter a PIGTAIL STR INFINITI CATHETER FR 6 was advanced over a WIR E, 3MMJ .035 7:50:31 180CM 180CM. Recorded Pressure: LV, RT=366, Condition=Condition 1 7:51:16 (Left Ventricle) LV 128/18/25 7:52:30 The LV was injected at 12 cc/sec for a total of 36. OMNIPAQUE, 350 MG, 150ML 150ML used. Recorded Pressure: LV, Ao, HR=78, Condition=Condition 1 7:53:42 (Left Ventricle) LV 125/21/29, (Aorta) Ao 124/67/92 7:54:33 Catheter was removed 7:54:51 HR=81 bpm, BWIS=641/81 mmhg, SpO2=99.0 %, Resp=31 B/min, Pain=0, Chay=10, Maria=2 7:58:30 5000 units HEPARIN given in lab by Albert Nj RN via Peripheral IV. 7:59:25 OMNIPAQUE, 350 MG, 150ML 150ML and 30 KEMI INDEFLATOR added. A XB 4.0 GUIDE CATHETER FR 6 was advanced over a wire. OMNIPAQUE, 350 MG, 150ML 150ML was used f or 7:59:34 injections. 7:59:54 HR=82 bpm, AEKY=855/75 mmhg, SpO2=95.0 %, Resp=29 B/min, Pain=0, Chay=10, Maria=2 8:03:01 100 mcg NTG (IC) given in lab by Janis Fonseca, KENO WRITER/RUNNER TECH2 via Intra-coronary. 8:03:15 A WIRE, LUGE 182CM 182CM was inserted via Fem Art (right). 8:04:56 HR=84 bpm, ZNLS=685/75 mmhg, SpO2=94.0 %, Resp=36 B/min, Pain=0, Chay=10, Maria=2 8:07:17 Interventional wire has crossed the lesion 8:09:19 A BALLOON, 2.75 X 12MM NC EUPHORA 12MM was inserted over WIRE, LUGE 182CM 182CM via the CIRC Prox. 8:09:53 HR=86 bpm, ROXS=038/79 mmhg, SpO2=93.0 %, Resp=36 B/min, Pain=0, Chay=10, Maria=2 A BALLOON, 2.75 X 12MM NC EUPHORA 12MM over a WIRE, LUGE 182CM 182CM in the CIRC Prox was inflat ed using a 8:10:16 30 KEMI INDEFLATOR at 9 kemi for 30 sec. 8:11:05 Balloon Removed. 8:11:29 The LCA was injected and visualized at various angles. OMNIPAQUE, 350 MG, 150ML 150ML used. 8:12:59 100 mcg NTG (IC) given in lab by Janis Fonseca, KENO WRITER/RUNNER TECH2 via Intra-coronary. 8:13:26 50 mcg FENTANYL given in lab by Albert Nj RN via Peripheral IV. A STENT, 2.75 X 15MM XIENCE ALPINE 2.75 X 15 was advanced through a XB 4.0 GUIDE CATHETER FR 6 o luis a WIRE, 8:13:43 LUGE 182CM 182CM. 8:14:54 HR=94 bpm, XAQG=760/91 mmhg, SpO2=93 %, Resp=28 B/min, Pain=0, Chay=10, Maria=2 A STENT, 2.75 X 15MM XIENCE ALPINE 2.75 X 15 was deployed using a 30 KEMI INDEFLATOR at 15 atmosp heres for 8:15:54 33 seconds in the CIRC Prox. 8:16:46 Delivery device removed 8:17:32 The LCA was injected and visualized at various angles. OMNIPAQUE, 350 MG, 150ML 150ML used. 8:18:15 200 mcg NTG (IC) given in lab by Leland Negron via Intra-coronary. 8:19:43 Wire removed 8:19:59 HR=95 bpm, QSCS=266/87 mmhg, SpO2=93.0 %, Resp=24 B/min, Pain=0, Chay=10, Maria=2 8:20:05 The LCA was injected and visualized at various angles. OMNIPAQUE, 350 MG, 150ML 150ML used. 8:24:19 An injection in the Fem Art (right) was made through the SHEATH, FR6 TERUMO (10CM) FR 6. Assessment: Final Case, HR=93 BPM, Rhythm=reg, FEZI=544/80 mmhg, Edema=None, Color=Normal, Skin = Warm Right Pulses: Jean Ped=1, Femoral=1 8:24:28 Left Pulses: Jean Ped=1, Femoral=1 Neurological: State=Alert, Ox3, [place] Respiration: Resp=28 B/min, SpO2=93 % 8:24:56 HR=92 bpm, KPUI=161/80 mmhg, SpO2=93.0 %, Resp=30 B/min, Pain=0, Chay=10, Maria=2 8:25:22 Catheter(s) removed without difficulty 8:25:27 VASCADE, FR6 CLOSURE SYSTEM FR 6\7 placement in the Fem Art (right) 8:29:59 HR=88 bpm, LTBH=802/86 mmhg, SpO2=96.0 %, Resp=34 B/min, Pain=0, Chay=10, Maria=2 8:30:16 150 mg PLAVIX given in lab by Albert Nj RN via Oral. 8:33:49 Sterile dressing applied to site 8:33:51 Case End 8:33:53 No case complications noted. 8:33:58 Cine recording checked. 8:34:01 Bedside Report will be given. 8:34:02 Implantable Device card placed in patient's chart. 8:34:05 Contrast Scanned 8:34:09 A Left Heart Cath was performed. 8:34:11 Clinical correlaton risk stratification. 8:34:52 IV PULLED OUT BY ACCIDENT BY DR ISABEL-PRESSURE HELD 8:35:00 HR=91 bpm, BJRP=886/78 mmhg, SpO2=96.0 %, Resp=37 B/min, Pain=0, Chay=10, Maria=2 8:37:27 PRESSURE HELD RIGHT GROIN 8:37:52 PT VOIDED 8:38:12 IV STARTED BY ALBERT IN LAB IN RIGHT FOREARM 20G 8:39:59 HR=88 bpm, SUTW=241/84 mmhg, SpO2=96.0 %, Pain=0, Chay=10, Maria=2 8:45:43 HR=90 bpm, LWHX=627/78 mmhg, SpO2=92 %, Resp=38 B/min, Pain=0, Chay=10, Maria=2 8:49:33 Vitals capture stopped. End Study - Contrast Media Used In Study Contrast Total Opened (mL) Total Used (mL) Total Wasted (mL) Omnipaque 215 215 0 End Study - Maximum Contrast Load Max Contrast Load (mL) 519.2 End Study - Radiation Exposure Fluoro Time (minutes) 22.8 End Study - Sheaths Sheaths Pulled By Sheath Hold Time (min) Leland Negron End Study - Patient Disposition Complications Transferred To Interventional Outcome No Regular Bed successful
[2017-02-13] MEDS ORDERED: SODIUM CHLORIDE 0.9% FLUSH 10 ML FLUSH IV FLUSH PRN (09:15)
[2017-02-13] MEDS ORDERED: ONDANSETRON HCL 4 MG/2 ML VIAL IV PUSH PRN (09:15)
[2017-02-13] MEDS ORDERED: SODIUM CHLOR 0.9% 250 ML INJ 250 ML IV PRN (09:15)
[2017-02-13] MEDS ORDERED: MISC INFORMATION XX ONE (09:15)
[2017-02-13] MEDS ORDERED: ATROPINE SULFATE 1 MG/ML VIAL IV PUSH PRN (09:15)
--- NOTE | 2017-02-13 09:50 | MA ---
cc: BECK CARPENTER M.D., JOANNE D. M.D. DATE February 13, 2017 PROCEDURE PERFORMED 1. Left heart catheterization. 2. Coronary arteriography. 3. Left ventriculography. 4. Selective injection of left internal mammary graft. 5. Selective injection of right internal mammary graft. 6. Saphenous vein bypass grafts. 7. Percutaneous transluminal coronary angioplasty with drug-eluting stent implant proximal circumflex artery. PROCEDURE TECHNIQUE The patient was brought to the cardiac catheterization laboratory following informed consent. The area of the right groin was prepped and draped in the usual sterile manner. Following 10 mL of 1% Xylocaine for local anesthesia in the right groin, a 6-Eritrean short introducer sheath was placed in the right femoral artery via modified Seldinger technique. Through this introducer sheath a 6-Eritrean diagnostic catheter system including a JL-4.5, JR-4, SOFI, and straight pigtail were used for the left heart study. Multiple projections of the left and right coronary arteries, internal mammary grafts, saphenous vein bypass graft were performed in multiple angles. The left ventriculogram was performed in the REA 30-degree projection only. At completion of the diagnostic procedure, it was decided to proceed with percutaneous intervention of the proximal circumflex artery. The diagnostic catheter was removed and exchanged over a wire for a 6-Eritrean XB 4.0 guiding catheter which was passed to the left coronary artery and guiding pictures taken. Through this guiding catheter, a Luge 0.014 floppy wire was passed into the distal circumflex artery without difficulty. Over this wire a Euphora NC 2.75 x 12-mm balloon was passed across the stenosis in the proximal circumflex artery and inflated one time to maximum pressure of 6 atmospheres for 30 seconds. The balloon was deflated and removed. Follow-up stent implant was performed with a XIENCE Alpine 2.75 x 15-mm stent which was deployed in the proximal circumflex artery at a maximum pressure of 15 atmospheres for 30 seconds. The balloon deployment catheter was deflated and removed. When a good result was seen, the final pictures were taken and the guidewire was removed and subsequent pictures taken. The guide catheter was removed and the introducer sheath removed with the use of a Vascade device. Adequate hemostasis was maintained. The patient tolerated the procedure well. There were no immediate complications. He was transferred back to his CIC bed in stable condition. HEMODYNAMIC DATA No gradient was recorded across the aortic valve. For complete hemodynamic details please see accompanying paperwork. ANGIOGRAPHIC FINDINGS LEFT VENTRICLE: The left ventricle demonstrates increased end-systolic dimensions. There is hypokinesis noted in the distal anterior wall, distal inferior wall and apex. Overall left ventricular function is moderately impaired. Estimated left ventricular ejection fraction is 35-40%. No mitral regurgitation is seen. The aortic valve is trileaflet and opens normally. The aortic root and proximal portion of the ascending aorta are normal. LEFT CORONARY ARTERY: The left main trunk arises normally from the left coronary sinus. There are moderate luminal irregularities. There is an area of up to 15% proximal stenosis. LEFT ANTERIOR DESCENDING ARTERY: The LAD is a small to medium caliber vessel. This is occluded in the proximal segment but fills via the patent left internal mammary artery graft. Retrograde filling of the major diagonal branch is noted. The distal LAD is small and its course ends at the apex. The anastomotic site is widely patent. CIRCUMFLEX: Nondominant. The main circumflex gives rise to a lateral branch and two posterior ventricular branches. The main circumflex is moderate in caliber and diffusely diseased. There is a 99% proximal stenosis prior to the major obtuse marginal branch. The obtuse marginal branch has a 75-80% ostial stenosis. The main circumflex has a tubular narrowing of 60-70% stenosis in the midsegment beyond this obtuse marginal branch. The posterior ventricular branches are medium in caliber and normal. RIGHT CORONARY ARTERY: Dominant. The right coronary artery is severely diseased and 100% occluded in the proximal segment. The distal segment is seen filling via the patent right internal mammary artery graft. LEFT INTERNAL MAMMARY ARTERY GRAFT: Large caliber, widely patent and tortuous. RIGHT INTERNAL MAMMARY ARTERY GRAFT: Large caliber, widely patent. Distal anastomosis widely patent. SAPHENOUS VEIN GRAFT: Occluded. Known to be occluded by prior studies. This graft was previously a single anastomosis at the aorta but provided multiple branches to the two diagonals and two obtuse marginal branches and all of these are known to be occluded. ANGIOGRAPHIC RESULTS In the proximal circumflex artery, a vessel of approximately 3 mm in caliber, there is a type B-1 lesion obstructing the lumen by 99% of its diameter. Following balloon inflations and subsequent stent implant, this area of stenosis is reduced to 0% residual luminal diameter stenosis. No intimal disruption is seen and distal flow is ABEL grade 3 in the major obtuse marginal branch and the distal posterior ventricular branches at conclusion of the procedure. There remains significant disease in the mid-circumflex artery as well as the origin of the obtuse marginal branch but those areas are is essentially unchanged from the previous angiogram done back in 2013. DIAGNOSIS 1. Severe three-vessel coronary atherosclerosis. 2. Status post [id number]-[id number] myocardial infarction. 3. Moderate left ventricular dysfunction. 4. Patent left internal mammary graft to LAD. 5. Patent right internal mammary artery graft to distal RCA. 6. Occluded saphenous vein grafts x 4 four. 7. Successful PCI/drug-eluting stent implant proximal circumflex artery. COMMENT/RECOMMENDATIONS Angiographically, this patient had an excellent result today. Because of the patients chronic kidney diseas and in the interest of limiting contrast load today, we will treat the disease in the obtuse marginal and mid circumflex medically at this time and if necessary will consider returning to the research laboratory manager for intervention of those regions if clinically necessary as a staged procedure later if the patient has recurrent limiting angina. I have discussed the plans in detail with the patient and his family. We will probably plan for discharge in one to tw days depending on his condition. MD STEFFANY Figueroa/AMANDA /8:49 AM /9:20 AM ALIX
[2017-02-13] MEDS: SODIUM CHLORIDE 0.9% FLUSH 10 ML FLUSH IV FLUSH SCH ×2 (10:12→21:00)
[2017-02-13] MEDS: INSULIN ASPART SUPPLEMENTAL SCALE SQ SCH ×4 (10:12→21:00)
[2017-02-13] MEDS: TAMSULOSIN HCL 0.4 MG CAP PO SCH (10:12)
[2017-02-13] MEDS: POTASSIUM CHLORIDE 20 MEQ CONTROLLED RELEASE TAB PO SCH ×3 (10:13→17:44)
[2017-02-13] MEDS: BUMETANIDE 1 MG TAB PO SCH (10:20)
[2017-02-13] MEDS ORDERED: BACITRACIN OINT 0.9 GM PKT TOP ONE (10:30)
--- NOTE | 2017-02-13 11:11 | HHI.PR ---
Subjective Remarks Patient is S/P cardiac catheterization with placement of stent to the circumflex Patient denies chest pain at this time Patient does complain of pain after urination in his suprapubic area. Patient reports this has been going on for over six months. Patient denies increased urinary frequency or burning with urination. Patient does endorse waking 2-3 times per night to urinate. Patient does have penile implant that was placed approximally 5-6 years ago. Objective Vitals Vital Signs Date Time Temp Pulse Resp B/P (MAP) Pulse Ox O2 Delivery O2 Flow Rate FiO2 02/13/17 05:19 104 02/13/17 04:04 78 02/13/17 03:59 79 02/13/17 03:47 98.4 81 104/59 (74) 95 02/13/17 02:00 77 02/13/17 01:00 82 02/13/17 00:10 97.6 81 114/56 (75) 97 02/13/17 00:00 78 02/12/17 23:00 77 02/12/17 22:00 76 02/12/17 21:00 88 02/12/17 20:00 80 02/12/17 20:00 97.4 81 142/78 (99) 96 02/12/17 19:00 78 02/12/17 17:00 78 02/12/17 16:00 78 02/12/17 15:01 97.1 85 18 121/80 (94) 93 02/12/17 15:00 83 02/12/17 14:00 88 02/12/17 13:09 92 16 124/74 (91) 97 Nasal Cannula 3.00 02/12/17 12:03 84 16 124/74 (91) 93 Nasal Cannula 3.00 Result Diagram: 02/13/17 02002/13/17 020 Other Results Laboratory Tests Test 02/11/17 22:17 02/12/17 08:06 02/12/17 12:05 02/12/17 15:35 White Blood Count 7.0 TH/MM3 11.4 TH/MM3 11.1 TH/MM3 Red Blood Count 3.95 MIL/MM3 5.14 MIL/MM3 4.85 MIL/MM3 Hemoglobin 10.7 GM/DL 13.7 GM/DL 13.0 GM/DL Hematocrit 32.8 % 42.6 % 39.5 % Mean Corpuscular Volume 82.9 FL 82.8 FL 81.4 FL Mean Corpuscular Hemoglobin 27.1 PG 26.6 PG 26.8 PG Mean Corpuscular Hemoglobin Concent 32.7 % 32.1 % 33.0 % Red Cell Distribution Width 15.8 % 15.5 % 15.2 % Platelet Count 126 TH/MM3 190 TH/MM3 174 TH/MM3 Mean Platelet Volume 9.0 FL 9.3 FL 9.2 FL Neutrophils (%) (Auto) 75.5 % 87.6 % Lymphocytes (%) (Auto) 14.2 % 6.8 % Monocytes (%) (Auto) 8.0 % 5.2 % Eosinophils (%) (Auto) 1.2 % 0.1 % Basophils (%) (Auto) 1.1 % 0.3 % Neutrophils # (Auto) 5.3 TH/MM3 10.0 TH/MM3 Lymphocytes # (Auto) 1.0 TH/MM3 0.8 TH/MM3 Monocytes # (Auto) 0.6 TH/MM3 0.6 TH/MM3 Eosinophils # (Auto) 0.1 TH/MM3 0.0 TH/MM3 Basophils # (Auto) 0.1 TH/MM3 0.0 TH/MM3 CBC Comment AUTO DIFF AUTO DIFF Differential Total Cells Counted 100 100 Neutrophils % (Manual) 63 % 77 % Band Neutrophils % 1 % 13 % Lymphocytes % 19 % 5 % Monocytes % 6 % 2 % Eosinophils % 3 % Basophils % 2 % Neutrophils # (Manual) 4.9 TH/MM3 10.6 TH/MM3 Metamyelocytes 1 % 3 % Myelocytes 4 % Promyelocytes 1 % Differential Comment FINAL DIFF MANUAL FINAL DIFF MANUAL Platelet Estimate LOW NORMAL Platelet Morphology Comment NORMAL NORMAL Ovalocytes 1+ 1+ Acanthocytes 1+ 1+ Prothrombin Time 10.7 SEC 11.5 SEC Prothromb Time International Ratio 1.0 RATIO 1.0 RATIO Activated Partial Thromboplast Time 29.8 SEC 29.9 SEC Blood Urea Nitrogen 16 MG/DL 22 MG/DL Creatinine 1.12 MG/DL 1.27 MG/DL Random Glucose 194 MG/DL 291 MG/DL Total Protein 5.2 GM/DL 7.1 GM/DL Albumin 2.7 GM/DL Calcium Level 6.4 MG/DL 9.0 MG/DL 9.2 MG/DL Alkaline Phosphatase 57 U/L Aspartate Amino Transf (AST/SGOT) 16 U/L Alanine Aminotransferase (ALT/SGPT) 22 U/L Total Bilirubin 0.5 MG/DL Sodium Level 146 MEQ/L 138 MEQ/L Potassium Level 3.3 MEQ/L 4.6 MEQ/L 4.1 MEQ/L Chloride Level 112 MEQ/L 102 MEQ/L Carbon Dioxide Level 24.3 MEQ/L 29.4 MEQ/L Anion Gap 10 MEQ/L 7 MEQ/L Estimat Glomerular Filtration Rate 63 ML/MIN 55 ML/MIN Protein Corrected Calcium 7.3 MG/DL 9.3 MG/DL Total Creatine Kinase 49 U/L 1407 U/L Troponin I 0.02 NG/ML 38.90 NG/ML GREATER THAN 40.00 NG/ML B-Type Natriuretic Peptide 112 PG/ML Lipase 175 U/L Magnesium Level 1.6 MG/DL Creatine Kinase MB 162.2 NG/ML Creatine Kinase MB % 11.5 % Test 02/12/17 16:54 02/12/17 21:34 02/13/17 02:09 Activated Partial Thromboplast Time 34.7 SEC 34.4 SEC 40.2 SEC White Blood Count 10.6 TH/MM3 Red Blood Count 4.72 MIL/MM3 Hemoglobin 12.8 GM/DL Hematocrit 38.5 % Mean Corpuscular Volume 81.6 FL Mean Corpuscular Hemoglobin 27.2 PG Mean Corpuscular Hemoglobin Concent 33.3 % Red Cell Distribution Width 15.8 % Platelet Count 149 TH/MM3 Mean Platelet Volume 9.0 FL Neutrophils (%) (Auto) 81.8 % Lymphocytes (%) (Auto) 8.9 % Monocytes (%) (Auto) 8.5 % Eosinophils (%) (Auto) 0.4 % Basophils (%) (Auto) 0.4 % Neutrophils # (Auto) 8.7 TH/MM3 Lymphocytes # (Auto) 0.9 TH/MM3 Monocytes # (Auto) 0.9 TH/MM3 Eosinophils # (Auto) 0.0 TH/MM3 Basophils # (Auto) 0.0 TH/MM3 CBC Comment DIFF FINAL Differential Comment Blood Urea Nitrogen 21 MG/DL Creatinine 1.33 MG/DL Random Glucose 172 MG/DL Calcium Level 8.7 MG/DL Sodium Level 140 MEQ/L Potassium Level 3.9 MEQ/L Chloride Level 103 MEQ/L Carbon Dioxide Level 29.4 MEQ/L Anion Gap 8 MEQ/L Estimat Glomerular Filtration Rate 52 ML/MIN Triglycerides Level 179 MG/DL Cholesterol Level 109 MG/DL LDL Cholesterol 36 MG/DL HDL Cholesterol 37.4 MG/DL Cholesterol/HDL Ratio 2.91 RATIO Imaging Last Impressions Chest X-Ray 02/11/172214 Signed Impressions: Service Date/Time: Saturday, February 11, 2017 22:19 - CONCLUSION: Cardiomegaly with pulmonary vascular engorgement. Bibasilar consolidations likely related to intra-alveolar pulmonary edema. Jarek Reinoso Jr., MD Objective Remarks GENERAL: This is a well-nourished, well-developed patient, in no apparent distress at this time CARDIOVASCULAR: Regular rate and rhythm RESPIRATORY: Clear to auscultation. Breath sounds equal bilaterally. GASTROINTESTINAL: Abdomen soft, non-tender, nondistended. MUSCULOSKELETAL: Extremities without clubbing, cyanosis, or edema. No joint tenderness, effusion, or edema noted. No calf tenderness. Negative Homans sign bilaterally. NEUROLOGICAL: Awake and alert. No focal deficits noted. Motor and sensory grossly within normal limits. Five out of 5 muscle strength in all muscle groups. Normal speech. Procedures cardiac catheterization 02/13/17 with stent to the circumflex A/P Problem List: (1) Chest pain ICD Codes: R07.9 - Chest pain, unspecified Status: Acute Plan: Chest pain with a history of CAD s/p CABG x5 1993 NSTEMI initial EKG reveals RBBB left anterior fascicular block and tachycardia initial troponin <0.02 repeat troponin 38.90 nitroglycerin paste applied cardiology consulted, discussed with cardiology Dr. 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 Suprapubic pain with urination UA C&S renal US Tachycardia- resolved initial EKG reveals RBBB and tachycardia Patient given Cardizem IV push x 1 in ER current HR in the 70s-80s HTN continue patient's home medication and monitor BP trend Hyperlipemia continue patient's home Lipitor DM type 2 will hold patient's home metformin and glimepiride with Accu checks ACHS with SSI coverage DVT prophylaxis with Lovenox (2) CAD (coronary artery disease) ICD Codes: I25.9 - CAD (coronary artery disease) Status: Chronic (3) Tachycardia ICD Codes: R00.0 - Tachycardia, unspecified (4) HTN (hypertension) ICD Codes: I10 - HTN (hypertension) Status: Chronic (5) Hyperlipidemia ICD Codes: E78.5 - Hyperlipidemia Status: Chronic (6) Type 2 diabetes mellitus ICD Codes: E11.9 - Type 2 diabetes mellitus without complications Status: Chronic Assessment and Plan Patient examined. Assessment and plan formulated with Annette Cevallos PA-C. I agree with the above. Problem Qualifiers (1) Chest pain: Qualified Codes: R07.9 - Chest pain, unspecified Annette Cevallos Feb 13, 2017 11:10 Marco Rueda DO Feb 15, 2017 12:48
[2017-02-13] MEDS ORDERED: IOHEXOL 350 MG/ML 50 ML BTL (for Cath Lab) OTHER ONE (11:22)
[2017-02-13] MEDS ORDERED: IOHEXOL 350 MG/ML 100 ML BTL (for Cath Lab) OTHER ONE (11:22)
[2017-02-13] MEDS: SODIUM CHLOR 0.9% 1000 ML INJ 1,000 ML IV SCH ×2 (11:37→17:44)
--- NOTE | 2017-02-13 12:46 | RADRPT ---
EXAM DATE/TIME: 02/13/2017 11:23 [place] COMPARISON: No previous studies available for comparison. EXTERNAL COMPARISON : [facility], MRI ABDOMEN W & W/O CONTRAST March 11, 2008. INDICATIONS : Obstruction. MEDICAL HISTORY : Myocardial infarction. Hypertension. Hypercholesterolemia. Coronary artery disease. Anticoagulant the rapy. Atrial fibrillation. Right hip bursitis. Arthritis. Type 2 diabetes. GERD. SURGICAL HISTORY : CABG x 5. Cardiac catheterization. Exploratory laparotomy. Penile inplant. Colonoscopy. ENCOUNTER: Initial ACUITY: 1 day PAIN SCORE: 0/10 LOCATION: Bilateral flank MEASUREMENTS: RIGHT KIDNEY: 12.0 x 5.1 x 4.7 cm LEFT KIDNEY: 12.3 x 5.6 x 5.3 cm FINDINGS: RIGHT KIDNEY: Renal cortex is normal in thickness and echotexture. No hydronephrosis, stone, or mass. LEFT KIDNEY: Renal cortex is normal in thickness and echotexture. No hydronephrosis, stone, or mass. BLADDER: Within normal limits given the degree of distension. Incidentally seen splenomegaly, estimated at 15 cm craniocaudal. CONCLUSION: Ultrasound appearance of the kidneys and urinary bladder within normal limits. Nonspecific splenomega ly. Kenney Wilson MD on February 13, 2017 at 12:43 Board Certified Radiologist. This report was verified electronically.
[2017-02-13 12:52] LABS: BLOOD, URINE NEG (NEG); COMMENT (UR) CULT NOT INDICATED; CULTURE IF INDICATED CULT NOT INDICATED; GLUCOSE,URINE NEG (NEG); HYALINE CAST, URINE 1 /lpf (RARE); KETONE, URINE NEG (NEG); MUCUS URINE FEW /lpf (OCC); NITRITE,URINE NEG (NEG); URINE COLOR LIGHT-YELLOW (YELLW/STRAW)
[2017-02-13] MEDS ORDERED: LOSARTAN 25 MG TAB PO SCH (21:00)
[2017-02-13] MEDS ORDERED: SODIUM CHLORIDE 0.9% FLUSH 10 ML FLUSH IV FLUSH SCH (21:00)
[2017-02-13] MEDS: MULTIVITAMIN TAB PO SCH (21:20)
[2017-02-13] MEDS: ATORVASTATIN 80 MG TAB PO SCH (21:21)
[2017-02-13] MEDS: ASPIRIN EC 81 MG TABEC PO SCH (21:21)
[2017-02-13] MEDS: CARVEDILOL 12.5 MG TAB PO SCH (21:21)
[2017-02-13] MEDS: CLOPIDOGREL 75 MG TAB PO SCH (21:55)
[2017-02-14] VITALS (25 sets, daily range): BP systolic 92–121; BP diastolic 46–78; PULSE 68–128; RESP 14–20; TEMP 97–97.8; O2SAT 94–99
[2017-02-14] MEDS: NITROGLYCERIN 0.4 MG SL 25 TABS/BTL SL PRN ×3 (03:10→03:40)
[2017-02-14] MEDS ORDERED: ADENOSINE IV SOLN 3 MG/ML 2 ML VIAL ONE (03:31)
[2017-02-14] MEDS ORDERED: DIGOXIN 0.5 MG/2 ML VIAL IV PUSH SCH (03:45)
[2017-02-14] MEDS ORDERED: ADENOSINE IV SOLN 3 MG/ML 2 ML VIAL IV PUSH SCH (03:45)
[2017-02-14] MEDS ORDERED: DIGOXIN 0.5 MG/2 ML VIAL IV SCH (04:00)
[2017-02-14] MEDS ORDERED: DIGOXIN 0.5 MG/2 ML VIAL IV PRN (05:00)
[2017-02-14 06:04] LABS: BICARBONATE 28.6 MEQ/L (21.0-32.0); POTASSIUM 4.1 MEQ/L (3.5-5.1)
[2017-02-14] MEDS: ISOSORBIDE MONONITRATE 60 MG TAB PO SCH (06:58)
[2017-02-14] MEDS ORDERED: DILTIAZEM HCL 30 MG TAB PO ONE ×2 (07:15→15:30)
--- NOTE | 2017-02-14 07:18 | PD.CARD.PN ---
Subjective Subjective Remarks Patient developed tachycardia again last night. telemetry and EKG now consistent with Paroxysmal atrial fib and atrial flutter with variable conduction. VR improved after IV digoxin. Now asymptomatic. Denies palpitations, CP or SOB. Objective Medications Current Medications Medications (Trade) Dose Ordered Sig/Lorie Route Start Time Stop Time Status Last Admin (Ecotrin Ec) 81 mg HS PO 02/12/17 21:00 02/13/17 21:21 (Lipitor) 80 mg HS PO 02/12/17 21:00 02/13/17 21:21 (Plavix) 75 mg HS PO 02/12/17 21:00 02/13/17 21:55 ([place] 5-325 Mg) 1 tab Q6H PRN PO 02/12/17 00:45 (Duoneb Neb) 1 ampule Q6HR WHILE AWAKE NEB PRN NEB 02/12/17 00:45 02/12/17 07:47 (Imdur) 60 mg DAILY@0700 PO 02/12/17 07:00 02/14/17 06:58 (Glucophage) 1,000 mg BIDPC PO 02/12/17 09:00 Future Hold 02/12/17 09:55 (Nitrostat Sl) 0.4 mg UNSCH PRN SL 02/12/17 00:45 02/14/17 03:40 (Protonix) 20 mg BID PRN PO 02/12/17 00:45 (Flomax) 0.4 mg DAILY PO 02/12/17 09:00 02/13/17 10:12 (Theragran) 1 tab HS PO 02/12/17 21:00 02/13/17 21:20 Non-Formulary Medication 20 mg HS PO 02/12/17 21:00 Future hold (NS Flush) 2 ml BID IV FLUSH 02/12/17 09:00 02/13/17 10:12 (NS Flush) 2 ml UNSCH PRN IV FLUSH 02/12/17 00:45 (Tylenol) 500 mg Q4H PRN PO 02/12/17 00:45 (Morphine Inj) 2 mg Q4H PRN IV 02/12/17 01:00 02/14/17 02:52 (NovoLOG SUPPLEMENTAL SCALE) 1 ACHS SLIDING SCALE SQ 02/12/17 08:00 02/13/17 21:00 (D50w (Vial) Inj) 50 ml UNSCH PRN IV PUSH 02/12/17 00:45 (Glucagon Inj) 1 mg UNSCH PRN OTHER 02/12/17 00:45 (Amaryl) 4 mg DAILY@0800,1700 PO 02/12/17 08:00 Future Hold 02/12/17 07:48 (KCl) 20 meq TID PO 02/12/17 13:00 02/13/17 17:44 Sodium Chloride 1,000 ml @ 30 mls/hr Q24H IV 02/12/17 11:37 02/17/17 11:36 02/13/17 17:44 (Benadryl) 50 mg [employer]SPORT COMPANY MANAGER PO 02/12/17 11:45 02/16/17 11:44 (fentaNYL INJ) 50 mcg [employer]SPORT [employer] MANAGER IV PUSH 02/12/17 11:45 02/16/17 11:44 (Versed Inj) 1 mg TRANSPORT COMPANY MANAGER IV PUSH 02/12/17 11:45 02/16/17 11:44 (Atropine Inj) 0.5 mg UNSCH PRN IV PUSH 02/13/17 09:15 Sodium Chloride 250 ml @ 500 mls/hr ONCE PRN IV 02/13/17 09:15 02/14/17 09:14 (Zofran Inj) 4 mg Q4H PRN IV PUSH 02/13/17 09:15 (Cozaar) 25 mg HS PO 02/13/17 21:00 02/13/17 21:55 (Coreg) 50 mg BID PO 02/13/17 21:00 02/13/17 21:21 (Bumetanide) 1 mg DAILY PO 02/13/17 10:00 02/13/17 10:20 Amiodarone HCl 450 mg/Dextrose 250 ml @ 33.33 mls/ hr Q7H31M PRN IV 02/14/17 07:12 UNV Amiodarone HCl 150 mg/Dextrose 100 ml @ 100 mls/hr Q1H ONCE IV 02/14/17 07:02 02/14/17 08:01 UNV Vital Signs / I&O Vital Signs Date Time Temp Pulse Resp B/P (MAP) Pulse Ox O2 Delivery O2 Flow Rate FiO2 02/14/17 06:00 111 02/14/17 03:30 97.5 111 18 121/78 (92) 99 02/14/17 00:00 79 02/14/17 00:00 97.5 79 18 92/46 (61) 96 02/13/17 23:00 78 02/13/17 22:00 84 02/13/17 20:00 89 02/13/17 19:00 97.5 89 18 107/54 (71) 95 02/13/17 18:54 97 02/13/17 17:00 84 02/13/17 16:00 90 02/13/17 15:10 98.3 85 18 123/75 (91) 97 02/13/17 15:00 83 02/13/17 14:00 86 02/13/17 13:44 96 Nasal Cannula 3.00 02/13/17 13:00 84 02/13/17 12:00 86 02/13/17 11:14 98.2 81 22 119/73 (88) 96 02/13/17 11:00 79 02/13/17 10:00 79 02/13/17 09:15 79 02/13/17 09:15 98.5 86 22 121/72 (88) 95 I/O 02/13/17 02/13/17 02/13/17 02/14/17 02/14/17 02/14/17 07:00 15:00 23:00 07:00 15:00 23:00 Intake Total 240 ml 470 ml 400 ml Output Total 1175 ml 1725 ml 600 ml Balance -935 ml -1255 ml -200 ml Intake Oral 240 ml 420 ml 400 ml IV Total 50 ml Output Urine Total 1175 ml 1725 ml 600 ml # Bowel Movements 0 0 Physical Exam BP stable, afebrile. HR 100 and irregular. No JVD Lungs fine basilar crackles. Heart; Irreg, S1, S2, no murmur, gallops, rubs. Abd: BS + non-tender. Ext: LE edema improving. Right groin cath site stable no hematoma. Neuro: Non-focal. Laboratory Laboratory Tests Test 02/13/17 11:45 02/14/17 05:02 Urine Color LIGHT-YELLOW Urine Turbidity CLEAR Urine pH 5.0 Urine Specific [place] 1.015 Urine Protein NEG mg/dL Urine Glucose (UA) NEG mg/dL Urine Ketones NEG mg/dL Urine Occult Blood NEG Urine Nitrite NEG Urine Bilirubin NEG Urine Urobilinogen LESS THAN 2.0 MG/DL Urine Leukocyte Esterase NEG Urine WBC LESS THAN 1 /hpf Urine Hyaline Casts 1 /lpf Urine Mucus FEW /lpf Microscopic Urinalysis Comment CULT NOT INDICATED Blood Urea Nitrogen 27 MG/DL Creatinine 1.42 MG/DL Random Glucose 215 MG/DL Calcium Level 8.3 MG/DL Sodium Level 139 MEQ/L Potassium Level 4.1 MEQ/L Chloride Level 100 MEQ/L Carbon Dioxide Level 28.6 MEQ/L Anion Gap 10 MEQ/L Estimat Glomerular Filtration Rate 48 ML/MIN Imaging Last 48 hours Impressions Renal Ultrasound 02/13/17 0000 Signed Impressions: Service Date/Time: February 11:23 - CONCLUSION: Ultrasound appearance of the kidneys and urinary bladder within normal limits. Nonspecific splenomegaly. Kenney Wilson MD Assessment and Plan Problem List: (1) NSTEMI (non-ST elevated myocardial infarction) ICD Codes: I21.4 - Non-ST elevation (NSTEMI) myocardial infarction (2) Stented coronary artery ICD Codes: Z95.5 - Presence of coronary angioplasty implant and graft Plan: PTCA/ROCK Cx (3) Paroxysmal atrial fibrillation with rapid ventricular response ICD Codes: I48.0 - Paroxysmal atrial fibrillation (4) Paroxysmal atrial flutter ICD Codes: I48.92 - Unspecified atrial flutter (5) Hypertensive cardiovascular disease ICD Codes: I11.9 - Hypertensive cardiovascular disease Status: Acute (6) CAD (coronary artery disease) ICD Codes: I25.9 - CAD (coronary artery disease) Status: Chronic (7) Hyperlipidemia ICD Codes: E78.5 - Hyperlipidemia Status: Chronic (8) Type 2 diabetes mellitus ICD Codes: E11.9 - Type 2 diabetes mellitus without complications Status: Chronic (9) Stage 3 chronic kidney disease ICD Codes: N18.3 - Chronic kidney disease, stage 3 (moderate) Status: Chronic (10) Obesity ICD Codes: E66.9 - Obesity, unspecified (11) Ischemic cardiomyopathy ICD Codes: I25.5 - Ischemic cardiomyopathy Plan: EF 35-40% Assessment and Plan Will need to observe another 24-48 hours until arrythmias better controlled. Start IV amiodarone per protocol now. Start Eliquis 5 mg PO BID. Need to continue triple therapy for now for recent stent implant. Coreg dose increased to 50 mg BID Cardizem 30 mg po X 1 and PRN for additional rate control. Following Code Status Full Discussed Condition With Patient and staff psychiatrist. Leland Negron MD Feb 14, 2017 07:18
[2017-02-14] MEDS ORDERED: AMIODARONE INJ 150 MG in DEXTROSE 5% IN WATER 100ML INJ 97 ML IV ONE ×2 (07:30)
[2017-02-14] MEDS: INSULIN ASPART SUPPLEMENTAL SCALE SQ SCH ×4 (08:00→21:00)
[2017-02-14] MEDS ORDERED: AMIODARONE INJ 450 MG in DEXTROSE 5% IN WATE(EXCEL) INJ 241 ML IV PRN ×2 (08:00)
[2017-02-14] MEDS: APIXABAN 5 MG TABLET PO SCH ×2 (08:29→21:53)
[2017-02-14] MEDS: TAMSULOSIN HCL 0.4 MG CAP PO SCH (08:29)
[2017-02-14] MEDS: BUMETANIDE 1 MG TAB PO SCH (08:30)
[2017-02-14] MEDS: SODIUM CHLORIDE 0.9% FLUSH 10 ML FLUSH IV FLUSH SCH ×2 (08:30→21:54)
[2017-02-14] MEDS: POTASSIUM CHLORIDE 20 MEQ CONTROLLED RELEASE TAB PO SCH ×3 (08:30→17:44)
[2017-02-14] MEDS: CARVEDILOL 12.5 MG TAB PO SCH ×2 (08:32→21:54)
[2017-02-14] MEDS ORDERED: SODIUM CHLORID 0.9% 500 ML INJ 500 ML IV SCH (09:15)
--- NOTE | 2017-02-14 09:59 | HHI.PR ---
Subjective Remarks Patient offers no complaints at this time Patient's who is at bedside reports, "a lot of commotion last night." Patient did have episode of A fib/Flutter with RVR Objective Vitals Vital Signs Date Time Temp Pulse Resp B/P (MAP) Pulse Ox O2 Delivery O2 Flow Rate FiO2 02/14/17 09:20 122 94/60 02/14/17 08:01 97.7 119 20 106/71 (83) 97 02/14/17 07:30 119 92/65 02/14/17 07:01 116 02/14/17 06:00 111 02/14/17 03:30 97.5 111 18 121/78 (92) 99 02/14/17 00:00 79 02/14/17 00:00 97.5 79 18 92/46 (61) 96 02/13/17 23:00 78 02/13/17 22:00 84 02/13/17 20:00 89 02/13/17 19:00 97.5 89 18 107/54 (71) 95 02/13/17 18:54 97 02/13/17 17:00 84 02/13/17 16:00 90 02/13/17 15:10 98.3 85 18 123/75 (91) 97 02/13/17 15:00 83 02/13/17 14:00 86 02/13/17 13:44 96 Nasal Cannula 3.00 02/13/17 13:00 84 02/13/17 12:00 86 02/13/17 11:14 98.2 81 22 119/73 (88) 96 02/13/17 11:00 79 02/13/17 10:00 79 02/14/17 02/14/17 02/15/17 15:00 23:00 07:00 Intake Total 100 ml Balance 100 ml IV Total 100 ml Result Diagram: 02/13/17 0209 02/14/17 0502 Other Results Laboratory Tests Test 02/11/17 22:17 02/12/17 08:06 02/12/17 12:05 02/12/17 15:35 White Blood Count 7.0 TH/MM3 11.4 TH/MM3 11.1 TH/MM3 Red Blood Count 3.95 MIL/MM3 5.14 MIL/MM3 4.85 MIL/MM3 Hemoglobin 10.7 GM/DL 13.7 GM/DL 13.0 GM/DL Hematocrit 32.8 % 42.6 % 39.5 % Mean Corpuscular Volume 82.9 FL 82.8 FL 81.4 FL Mean Corpuscular Hemoglobin 27.1 PG 26.6 PG 26.8 PG Mean Corpuscular Hemoglobin Concent 32.7 % 32.1 % 33.0 % Red Cell Distribution Width 15.8 % 15.5 % 15.2 % Platelet Count 126 TH/MM3 190 TH/MM3 174 TH/MM3 Mean Platelet Volume 9.0 FL 9.3 FL 9.2 FL Neutrophils (%) (Auto) 75.5 % 87.6 % Lymphocytes (%) (Auto) 14.2 % 6.8 % Monocytes (%) (Auto) 8.0 % 5.2 % Eosinophils (%) (Auto) 1.2 % 0.1 % Basophils (%) (Auto) 1.1 % 0.3 % Neutrophils # (Auto) 5.3 TH/MM3 10.0 TH/MM3 Lymphocytes # (Auto) 1.0 TH/MM3 0.8 TH/MM3 Monocytes # (Auto) 0.6 TH/MM3 0.6 TH/MM3 Eosinophils # (Auto) 0.1 TH/MM3 0.0 TH/MM3 Basophils # (Auto) 0.1 TH/MM3 0.0 TH/MM3 CBC Comment AUTO DIFF AUTO DIFF Differential Total Cells Counted 100 100 Neutrophils % (Manual) 63 % 77 % Band Neutrophils % 1 % 13 % Lymphocytes % 19 % 5 % Monocytes % 6 % 2 % Eosinophils % 3 % Basophils % 2 % Neutrophils # (Manual) 4.9 TH/MM3 10.6 TH/MM3 Metamyelocytes 1 % 3 % Myelocytes 4 % Promyelocytes 1 % Differential Comment FINAL DIFF MANUAL FINAL DIFF MANUAL Platelet Estimate LOW NORMAL Platelet Morphology Comment NORMAL NORMAL Ovalocytes 1+ 1+ Acanthocytes 1+ 1+ Prothrombin Time 10.7 SEC 11.5 SEC Prothromb Time International Ratio 1.0 RATIO 1.0 RATIO Activated Partial Thromboplast Time 29.8 SEC 29.9 SEC Blood Urea Nitrogen 16 MG/DL 22 MG/DL Creatinine 1.12 MG/DL 1.27 MG/DL Random Glucose 194 MG/DL 291 MG/DL Total Protein 5.2 GM/DL 7.1 GM/DL Albumin 2.7 GM/DL Calcium Level 6.4 MG/DL 9.0 MG/DL 9.2 MG/DL Alkaline Phosphatase 57 U/L Aspartate Amino Transf (AST/SGOT) 16 U/L Alanine Aminotransferase (ALT/SGPT) 22 U/L Total Bilirubin 0.5 MG/DL Sodium Level 146 MEQ/L 138 MEQ/L Potassium Level 3.3 MEQ/L 4.6 MEQ/L 4.1 MEQ/L Chloride Level 112 MEQ/L 102 MEQ/L Carbon Dioxide Level 24.3 MEQ/L 29.4 MEQ/L Anion Gap 10 MEQ/L 7 MEQ/L Estimat Glomerular Filtration Rate 63 ML/MIN 55 ML/MIN Protein Corrected Calcium 7.3 MG/DL 9.3 MG/DL Total Creatine Kinase 49 U/L 1407 U/L Troponin I 0.02 NG/ML 38.90 NG/ML GREATER THAN 40.00 NG/ML B-Type Natriuretic Peptide 112 PG/ML Lipase 175 U/L Magnesium Level 1.6 MG/DL Creatine Kinase MB 162.2 NG/ML Creatine Kinase MB % 11.5 % Test 02/12/17 16:54 02/12/17 21:34 02/13/17 02:09 02/13/17 11:45 Activated Partial Thromboplast Time 34.7 SEC 34.4 SEC 40.2 SEC White Blood Count 10.6 TH/MM3 Red Blood Count 4.72 MIL/MM3 Hemoglobin 12.8 GM/DL Hematocrit 38.5 % Mean Corpuscular Volume 81.6 FL Mean Corpuscular Hemoglobin 27.2 PG Mean Corpuscular Hemoglobin Concent 33.3 % Red Cell Distribution Width 15.8 % Platelet Count 149 TH/MM3 Mean Platelet Volume 9.0 FL Neutrophils (%) (Auto) 81.8 % Lymphocytes (%) (Auto) 8.9 % Monocytes (%) (Auto) 8.5 % Eosinophils (%) (Auto) 0.4 % Basophils (%) (Auto) 0.4 % Neutrophils # (Auto) 8.7 TH/MM3 Lymphocytes # (Auto) 0.9 TH/MM3 Monocytes # (Auto) 0.9 TH/MM3 Eosinophils # (Auto) 0.0 TH/MM3 Basophils # (Auto) 0.0 TH/MM3 CBC Comment DIFF FINAL Differential Comment Blood Urea Nitrogen 21 MG/DL Creatinine 1.33 MG/DL Random Glucose 172 MG/DL Calcium Level 8.7 MG/DL Sodium Level 140 MEQ/L Potassium Level 3.9 MEQ/L Chloride Level 103 MEQ/L Carbon Dioxide Level 29.4 MEQ/L Anion Gap 8 MEQ/L Estimat Glomerular Filtration Rate 52 ML/MIN Triglycerides Level 179 MG/DL Cholesterol Level 109 MG/DL LDL Cholesterol 36 MG/DL HDL Cholesterol 37.4 MG/DL Cholesterol/HDL Ratio 2.91 RATIO Urine Color LIGHT-YELLOW Urine Turbidity CLEAR Urine pH 5.0 Urine Specific [place] 1.015 Urine Protein NEG mg/dL Urine Glucose (UA) NEG mg/dL Urine Ketones NEG mg/dL Urine Occult Blood NEG Urine Nitrite NEG Urine Bilirubin NEG Urine Urobilinogen LESS THAN 2.0 MG/DL Urine Leukocyte Esterase NEG Urine WBC LESS THAN 1 /hpf Urine Hyaline Casts 1 /lpf Urine Mucus FEW /lpf Microscopic Urinalysis Comment CULT NOT INDICATED Test 02/14/17 05:02 Blood Urea Nitrogen 27 MG/DL Creatinine 1.42 MG/DL Random Glucose 215 MG/DL Calcium Level 8.3 MG/DL Sodium Level 139 MEQ/L Potassium Level 4.1 MEQ/L Chloride Level 100 MEQ/L Carbon Dioxide Level 28.6 MEQ/L Anion Gap 10 MEQ/L Estimat Glomerular Filtration Rate 48 ML/MIN Imaging Last Impressions Chest X-Ray 02/11/172214 Signed Impressions: Service Date/Time: Saturday, February 11, 2017 22:19 - CONCLUSION: Cardiomegaly with pulmonary vascular engorgement. Bibasilar consolidations likely related to intra-alveolar pulmonary edema. Jarek Reinoso Jr., MD Objective Remarks GENERAL: This is a well-nourished, well-developed patient, in no apparent distress at this time CARDIOVASCULAR: Irregularly irregular RESPIRATORY: Clear to auscultation. Breath sounds equal bilaterally. GASTROINTESTINAL: Abdomen soft, non-tender, nondistended. MUSCULOSKELETAL: Extremities without clubbing, cyanosis, or edema. No joint tenderness, effusion, or edema noted. No calf tenderness. Negative Homans sign bilaterally. NEUROLOGICAL: Awake and alert. No focal deficits noted. Motor and sensory grossly within normal limits. Five out of 5 muscle strength in all muscle groups. Normal speech. Procedures cardiac catheterization 02/13/17 with stent to the circumflex A/P Problem List: (1) Chest pain ICD Codes: R07.9 - Chest pain, unspecified Status: Acute Plan: Chest pain with a history of CAD s/p CABG x5 1994 NSTEMI initial EKG reveals RBBB left anterior fascicular block and tachycardia initial troponin <0.02 repeat troponin 38.90 nitroglycerin paste applied cardiology consulted, discussed with cardiology Dr. Negron request heparin drip and NPO after midnight for cardiac cath in AM Patient also on aspirin daily continue patient's home Coreg, Lipitor, Imdur 60 mg PO daily and Plavix lipid profile reviewed and reveals LDL of 36 Patient s/p cardiac catheterization 02/13/17 with stent placed to the circumflex continue on Plavix daily A Fib/A Flutter RVR- rate up to 160 bpm seen on EKG 02/14 0249 Patient had episode of A Fib/Flutter with RVR last night was given digoxin IV then started on Amiodarone drip, received one time dose of Cardizem 30 mg PO and was Eliquis BID (triple anticoagulation therapy) per cardiology Coreg increased to 50 mg BID continue to monitor patient's telemetry Suprapubic pain with urination UA reviewed neg leukocyte esterase no culture indicated renal US reviewed ultrasound appearance of the kidneys and urinary bladder within normal limits. Nonspecific splenomegaly. HTN Coreg increased to 50 mg BID per cardiology Patient also on amiodarone drip Losartan placed on hold as patient is currently hypotensive monitor BP trend Hyperlipemia continue patient's home Lipitor LDL 36 DM type 2 will hold patient's home metformin and glimepiride with Accu checks ACHS with SSI coverage DVT prophylaxis patient on Eliquis (2) CAD (coronary artery disease) ICD Codes: I25.9 - CAD (coronary artery disease) Status: Chronic (3) Tachycardia ICD Codes: R00.0 - Tachycardia, unspecified (4) HTN (hypertension) ICD Codes: I10 - HTN (hypertension) Status: Chronic (5) Hyperlipidemia ICD Codes: E78.5 - Hyperlipidemia Status: Chronic (6) Type 2 diabetes mellitus ICD Codes: E11.9 - Type 2 diabetes mellitus without complications Status: Chronic Assessment and Plan Patient examined. Assessment and plan formulated with Annette HILL I agree with the above. Problem Qualifiers (1) Chest pain: Qualified Codes: R07.9 - Chest pain, unspecified Annette Cevallos Feb 14, 2017 09:59 Marco Rueda DO Feb 15, 2017 12:49
[2017-02-14] MEDS ORDERED: DIGOXIN 0.5 MG/2 ML VIAL IV PUSH ONE (15:45)
[2017-02-14] MEDS ORDERED: DILTIAZEM HCL 25 MG/5 ML VIAL IV ONE (15:45)
[2017-02-14] MEDS: MAGNESIUM SULFATE 1 GM PREMIX 100 ML IV SCH ×2 (16:28→17:37)
--- NOTE | 2017-02-14 18:03 | EKG ---
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
--- NOTE | 2017-02-14 18:05 | EKG ---
Date Performed: 02/14/2017 Time Performed: 03:39:26 PTAGE: 81 years EKG: Atrial fibrillation with fast ventricular response Severe right axis deviation Right bundle branch block Inferior infarct - age undetermined Possible anterior infarct - age undetermined Low QR S voltages in precordial leads Abnormal ECG PREVIOUS TRACING : 02/14/2017 02.49 DOCTOR: Harjit Romeo Interpretating Date/Time 02/14/2017 18:03:49
--- NOTE | 2017-02-14 18:07 | EKG ---
Date Performed: 02/14/2017 Time Performed: 02:49:28 PTAGE: 81 years EKG: Regular supraventricular tachycardia. Right axis. Possible leads reversal--- Abnormal ECG PREVIOUS TRACING : 02/12/2017 07.23 DOCTOR: Harjit Romeo Interpretating Date/Time 02/14/2017 18:04:59
[2017-02-14] MEDS: ASPIRIN EC 81 MG TABEC PO SCH (21:53)
[2017-02-14] MEDS: ATORVASTATIN 80 MG TAB PO SCH (21:53)
[2017-02-14] MEDS: CLOPIDOGREL 75 MG TAB PO SCH (21:54)
[2017-02-14] MEDS: MULTIVITAMIN TAB PO SCH (21:54)
[2017-02-15] VITALS (28 sets, daily range): BP systolic 102–121; BP diastolic 48–66; PULSE 68–94; RESP 16–32; TEMP 97.1–97.9; O2SAT 92–96
[2017-02-15 06:01] LABS: POTASSIUM 4.2 MEQ/L (3.5-5.1)
[2017-02-15] MEDS: ISOSORBIDE MONONITRATE 30 MG TAB PO SCH (06:13)
[2017-02-15] MEDS: RESP: ALBUTEROL 2.5 MG/IPRATROPIUM 0.5 MG NEB (PRN) NEB ×2 (08:05→13:35)
--- NOTE | 2017-02-15 08:19 | PD.CARD.PN ---
Subjective Subjective Remarks P. Afib VR improving with med changes. Patient denies CP, SOB or palpitations. Looks more comfortable today. Objective Medications Current Medications Medications (Trade) Dose Ordered Sig/Lorie Route Start Time Stop Time Status Last Admin (Ecotrin Ec) 81 mg HS PO 02/12/17 21:00 02/14/17 21:53 (Lipitor) 80 mg HS PO 02/12/17 21:00 02/14/17 21:53 (Plavix) 75 mg HS PO 02/12/17 21:00 02/14/17 21:54 ([place] 5-325 Mg) 1 tab Q6H PRN PO 02/12/17 00:45 (Duoneb Neb) 1 ampule Q6HR WHILE AWAKE NEB PRN NEB 02/12/17 00:45 02/15/17 08:05 (Glucophage) 1,000 mg BIDPC PO 02/12/17 09:00 Future Hold 02/12/17 09:55 (Nitrostat Sl) 0.4 mg UNSCH PRN SL 02/12/17 00:45 02/14/17 03:40 (Protonix) 20 mg BID PRN PO 02/12/17 00:45 (Flomax) 0.4 mg DAILY PO 02/12/17 09:00 02/14/17 08:29 (Theragran) 1 tab HS PO 02/12/17 21:00 02/14/17 21:54 Non-Formulary Medication 20 mg HS PO 02/12/17 21:00 Future hold (NS Flush) 2 ml BID IV FLUSH 02/12/17 09:00 02/14/17 21:54 (NS Flush) 2 ml UNSCH PRN IV FLUSH 02/12/17 00:45 (Tylenol) 500 mg Q4H PRN PO 02/12/17 00:45 (Morphine Inj) 2 mg Q4H PRN IV 02/12/17 01:00 02/14/17 02:52 (NovoLOG SUPPLEMENTAL SCALE) 1 ACHS SLIDING SCALE SQ 02/12/17 08:00 02/14/17 21:00 (D50w (Vial) Inj) 50 ml UNSCH PRN IV PUSH 02/12/17 00:45 (Glucagon Inj) 1 mg UNSCH PRN OTHER 02/12/17 00:45 (Amaryl) 4 mg DAILY@0800,1700 PO 02/12/17 08:00 Future Hold 02/12/17 07:48 (KCl) 20 meq TID PO 02/12/17 13:00 02/14/17 17:44 Sodium Chloride 1,000 ml @ 30 mls/hr Q24H IV 02/12/17 11:37 02/17/17 11:36 02/13/17 17:44 (Benadryl) 50 mg AMMUNITION OFFICER PO 02/12/17 11:45 02/16/17 11:44 (fentaNYL INJ) 50 mcg AMMUNITION OFFICER IV PUSH 02/12/17 11:45 02/16/17 11:44 (Versed Inj) 1 mg AMMUNITION OFFICER IV PUSH 02/12/17 11:45 02/16/17 11:44 (Atropine Inj) 0.5 mg UNSCH PRN IV PUSH 02/13/17 09:15 (Zofran Inj) 4 mg Q4H PRN IV PUSH 02/13/17 09:15 (Cozaar) 25 mg HS PO 02/13/17 21:00 Future Hold 02/13/17 21:55 (Coreg) 50 mg BID PO 02/13/17 21:00 02/14/17 21:54 (Bumetanide) 1 mg DAILY PO 02/13/17 10:00 02/14/17 08:30 Amiodarone HCl 450 mg/Dextrose 250 ml @ 33.33 mls/ hr Q7H31M PRN IV 02/14/17 08:00 02/14/17 09:20 (Eliquis) 5 mg BID PO 02/14/17 09:00 02/14/17 21:53 (Imdur) 30 mg DAILY@0700 PO 02/15/17 07:00 02/15/17 06:13 (Lanoxin) 0.125 mg DAILY PO 02/15/17 09:00 (Cardizem) 30 mg TID PO 02/15/17 09:00 Vital Signs / I&O Vital Signs Date Time Temp Pulse Resp B/P (MAP) Pulse Ox O2 Delivery O2 Flow Rate FiO2 02/15/17 08:08 94 Nasal Cannula 3.00 02/15/17 03:00 97.8 85 18 102/59 (73) 94 02/14/17 23:00 97.5 74 18 105/58 (74) 96 02/14/17 20:00 97.8 118 107/63 (78) 97 02/14/17 19:01 95 Nasal Cannula 3.00 02/14/17 18:01 86 02/14/17 17:00 80 02/14/17 16:00 110 02/14/17 15:33 126 14 112/71 (85) 02/14/17 15:00 123 02/14/17 14:01 120 02/14/17 13:00 104 02/14/17 12:00 84 02/14/17 11:01 97.0 79 20 103/63 (76) 95 02/14/17 11:00 97 02/14/17 10:58 94 Nasal Cannula 3.00 02/14/17 10:00 116 02/14/17 09:20 122 94/60 02/14/17 09:00 128 I/O 02/14/17 02/14/17 02/14/17 02/15/17 02/15/17 02/15/17 07:00 15:00 23:00 07:00 15:00 23:00 Intake Total 400 ml 100 ml 820 ml Output Total 600 ml 475 ml Balance -200 ml 100 ml 345 ml Intake Oral 400 ml 720 ml IV Total 100 ml 100 ml Output Urine Total 600 ml 475 ml # Voids 4 # Bowel Movements 0 0 Physical Exam BP stable, afebrile. HR 84 and irregular. No JVD Lungs CTA. Heart; Irreg, S1, S2, no murmur, gallops, rubs. Abd: BS + non-tender. Ext: LE edema improving. Right groin cath site stable no hematoma. Neuro: Non-focal. Laboratory Laboratory Tests Test 02/15/17 05:12 Blood Urea Nitrogen 29 MG/DL Creatinine 1.38 MG/DL Random Glucose 187 MG/DL Calcium Level 8.0 MG/DL Magnesium Level 2.0 MG/DL Sodium Level 140 MEQ/L Potassium Level 4.2 MEQ/L Chloride Level 103 MEQ/L Carbon Dioxide Level 30.0 MEQ/L Anion Gap 7 MEQ/L Estimat Glomerular Filtration Rate 50 ML/MIN Assessment and Plan Problem List: (1) NSTEMI (non-ST elevated myocardial infarction) ICD Codes: I21.4 - Non-ST elevation (NSTEMI) myocardial infarction (2) Stented coronary artery ICD Codes: Z95.5 - Presence of coronary angioplasty implant and graft (3) Paroxysmal atrial fibrillation with rapid ventricular response ICD Codes: I48.0 - Paroxysmal atrial fibrillation (4) Paroxysmal atrial flutter ICD Codes: I48.92 - Unspecified atrial flutter (5) Hypertensive cardiovascular disease ICD Codes: I11.9 - Hypertensive cardiovascular disease Status: Acute (6) CAD (coronary artery disease) ICD Codes: I25.9 - CAD (coronary artery disease) Status: Chronic (7) Hyperlipidemia ICD Codes: E78.5 - Hyperlipidemia Status: Chronic (8) Type 2 diabetes mellitus ICD Codes: E11.9 - Type 2 diabetes mellitus without complications Status: Chronic (9) Stage 3 chronic kidney disease ICD Codes: N18.3 - Chronic kidney disease, stage 3 (moderate) Status: Chronic (10) Obesity ICD Codes: E66.9 - Obesity, unspecified (11) Ischemic cardiomyopathy ICD Codes: I25.5 - Ischemic cardiomyopathy Assessment and Plan Will need to observe another 24-48 hours until arrhythmias better controlled. D/C IV amiodarone. Change to PO today.. Start Eliquis 5 mg PO BID. Need to continue triple therapy for now for recent stent implant. Coreg dose increased to 50 mg BID Cardizem 30 mg po TID and Digoxin 0.125 mg po daily additional rate control. Following. Code Status Full Discussed Condition With Dr. Rueda, staff weapons officer and patient. Leland Negron MD Feb 15, 2017 08:19
[2017-02-15] MEDS ORDERED: DILTIAZEM HCL 30 MG TAB PO SCH (09:00)
[2017-02-15] MEDS: INSULIN ASPART SUPPLEMENTAL SCALE SQ SCH ×4 (09:10→21:43)
[2017-02-15] MEDS: BUMETANIDE 1 MG TAB PO SCH (09:54)
[2017-02-15] MEDS: AMIODARONE 200 MG TAB PO SCH ×2 (09:54→21:42)
[2017-02-15] MEDS: DIGOXIN 0.125 MG TAB PO SCH (09:54)
[2017-02-15] MEDS: TAMSULOSIN HCL 0.4 MG CAP PO SCH (09:54)
[2017-02-15] MEDS: POTASSIUM CHLORIDE 20 MEQ CONTROLLED RELEASE TAB PO SCH ×3 (09:54→17:28)
[2017-02-15] MEDS: APIXABAN 5 MG TABLET PO SCH ×2 (09:55→21:42)
[2017-02-15] MEDS: CARVEDILOL 12.5 MG TAB PO SCH ×2 (09:55→21:41)
[2017-02-15] MEDS: SODIUM CHLORIDE 0.9% FLUSH 10 ML FLUSH IV FLUSH SCH ×2 (09:55→21:47)
[2017-02-15] MEDS: SODIUM CHLOR 0.9% 1000 ML INJ 1,000 ML IV SCH (09:56)
--- NOTE | 2017-02-15 11:21 | HHI.PR ---
Subjective Remarks Patient denies chest pain, palpitations, shortness of breath, nausea, vomiting, or diaphoresis. Patient denies abdominal pain today. Good appetite. Objective Vitals Vital Signs Date Time Temp Pulse Resp B/P (MAP) Pulse Ox O2 Delivery O2 Flow Rate FiO2 02/15/17 08:08 94 Nasal Cannula 3.00 02/15/17 08:07 97.8 94 16 121/48 (72) 94 02/15/17 06:00 82 02/15/17 05:00 86 02/15/17 04:00 80 02/15/17 03:00 80 02/15/17 03:00 97.8 85 18 102/59 (73) 94 02/15/17 02:00 74 02/15/17 01:00 78 02/15/17 00:00 74 02/14/17 23:00 97.5 74 18 105/58 (74) 96 02/14/17 23:00 68 02/14/17 22:00 122 02/14/17 21:00 126 02/14/17 20:00 97.8 118 107/63 (78) 97 02/14/17 20:00 102 02/14/17 19:01 95 Nasal Cannula 3.00 02/14/17 19:00 122 02/14/17 18:01 86 02/14/17 17:00 80 02/14/17 16:00 110 02/14/17 15:33 126 14 112/71 (85) 02/14/17 15:00 123 02/14/17 14:01 120 02/14/17 13:00 104 02/14/17 12:00 84 02/15/17 02/15/17 02/16/17 15:00 23:00 07:00 Intake Total 166 ml Balance 166 ml IV Total 166 ml Result Diagram: 02/13/17 0209 02/15/17 0512 Imaging Last Impressions Renal Ultrasound 02/13/17 0000 Signed Impressions: Service Date/Time: February 11:23 - CONCLUSION: Ultrasound appearance of the kidneys and urinary bladder within normal limits. Nonspecific splenomegaly. Kenney Wilson MD Chest X-Ray 02/11/17 2213 Signed Impressions: Service Date/Time: Saturday, February 11, 2017 22:19 - CONCLUSION: Cardiomegaly with pulmonary vascular engorgement. Bibasilar consolidations likely related to intra-alveolar pulmonary edema. Jarek Reinoso Jr., MD Objective Remarks GENERAL: This is a well-nourished, well-developed patient, in no apparent distress at this time CARDIOVASCULAR: Irregularly irregular RESPIRATORY: crackles at lung bases GASTROINTESTINAL: Abdomen soft, non-tender, nondistended. MUSCULOSKELETAL: Extremities without clubbing, cyanosis, or edema. No joint tenderness, effusion, or edema noted. No calf tenderness. Negative Homans sign bilaterally. NEUROLOGICAL: Awake and alert. No focal deficits noted. Motor and sensory grossly within normal limits. Five out of 5 muscle strength in all muscle groups. Normal speech. Procedures cardiac catheterization 02/13/17 with stent to the circumflex A/P Problem List: (1) Chest pain ICD Codes: R07.9 - Chest pain, unspecified Status: Acute Plan: Chest pain with a history of CAD s/p CABG x5 1993 NSTEMI initial EKG reveals RBBB left anterior fascicular block and tachycardia initial troponin <0.02 repeat troponin 38.90 nitroglycerin paste applied cardiology consulted, discussed with cardiology Dr. Negron request heparin drip and NPO after midnight for cardiac cath in AM Patient also on aspirin daily continue patient's home Coreg, Lipitor, Imdur 60 mg PO daily and Plavix lipid profile reviewed and reveals LDL of 36 Patient s/p cardiac catheterization 02/13/17 with stent placed to the circumflex continue on Plavix daily A Fib/A Flutter RVR- rate up to 160 bpm seen on EKG 02/14 0249 - now rate controlled. Telemetry (02/15): Afib 60-70 - Comanagement with cardiology - PO amiodarone - po digoxin - Obtain digoxin level in a.m. - Coreg 50mg BID - Cardizem 30mg TID --> convert to long acting - Pt started on Eliquis (triple anticoagulation therapy) per cardiology - observe telemetry Suprapubic pain with urination UA reviewed neg leukocyte esterase no culture indicated renal US reviewed ultrasound appearance of the kidneys and urinary bladder within normal limits. Nonspecific splenomegaly. - Suspect patient's suprapubic pain is related to paroxysmal atrial fibrillation - Observe HTN - coreg, cardizem - observe Hyperlipemia continue patient's home Lipitor LDL 36 DM type 2 - resume amaryl - hold metformin - SSI DVT prophylaxis patient on Eliquis (2) CAD (coronary artery disease) ICD Codes: I25.9 - CAD (coronary artery disease) Status: Chronic (3) Tachycardia ICD Codes: R00.0 - Tachycardia, unspecified (4) HTN (hypertension) ICD Codes: I10 - HTN (hypertension) Status: Chronic (5) Hyperlipidemia ICD Codes: E78.5 - Hyperlipidemia Status: Chronic (6) Type 2 diabetes mellitus ICD Codes: E11.9 - Type 2 diabetes mellitus without complications Status: Chronic Problem Qualifiers (1) Chest pain: Qualified Codes: R07.9 - Chest pain, unspecified Marco Rueda DO Feb 15, 2017 11:21
--- NOTE | 2017-02-15 12:42 | EKG ---
Date Performed: 02/15/2017 Time Performed: 06:23:32 PTAGE: 81 years EKG: Atrial fibrillation with controlled ventricular response Right bundle branch block [place] lef tward Cannot exclude inferior wall myocardial infarction of undetermined age. Compared to previous tr acing, heart rate is slower, otherwise no significant change. Abnormal ECG PREVIOUS TRACING : 02/14/2017 06.12 DOCTOR: Marco Antonio Stephenson Interpretating Date/Time 02/15/2017 12:41:19
[2017-02-15] MEDS: DILTIAZEM-CD 120 MG CAP ER PO SCH (13:03)
--- NOTE | 2017-02-15 13:57 | RADRPT ---
EXAM DATE/TIME: 02/15/2017 13:40 [place] COMPARISON: CHEST SINGLE AP, February 11, 2017, 22:19. INDICATIONS : Shortness of breath. Bibasilar crackle sound. MEDICAL HISTORY : Myocardial infarction. Hypertension. Hypercholesterolemia. Coronary artery disease. Artial fibr illation. SURGICAL HISTORY : CABG. Cardiac stent. Cardiac catheterization. ENCOUNTER: Initial ACUITY: 1 day PAIN SCORE: 0/10 LOCATION: Bilateral chest FINDINGS: A single view of the chest demonstrates interval improvement in the radiographic appearance of the ch est with more distinct and less prominent interstitial markings characteristic of resolving vascular congestion or volume overload. Minimal atelectatic changes persist in the bases. Possible small assoc iated right-sided effusion. Accounting for low lung time, the heart size is still borderline prominen t. Median sternotomy wires and coronary ostial rings characteristic of prior CABG. CONCLUSION: Improving CHF/volume overload. Possible small right-sided effusion. Buster Sheridan MD on February 15, 2017 at 13:54 Board Certified Radiologist. This report was verified electronically.
[2017-02-15] MEDS ORDERED: BUMETANIDE INJ 1 MG/4 ML VIAL IV PUSH ONE (14:15)
[2017-02-15] MEDS ORDERED: MAGNESIUM HYDROXIDE SUSP 30 ML CUP PO PRN (16:15)
[2017-02-15] MEDS: DOCUSATE SODIUM 100 MG CAP PO SCH ×2 (16:45→21:42)
[2017-02-15] MEDS: GLIMEPIRIDE 4 MG TAB PO SCH (17:28)
[2017-02-15] MEDS: ATORVASTATIN 80 MG TAB PO SCH (21:42)
[2017-02-15] MEDS: ASPIRIN EC 81 MG TABEC PO SCH (21:42)
[2017-02-15] MEDS: MULTIVITAMIN TAB PO SCH (21:42)
[2017-02-15] MEDS: CLOPIDOGREL 75 MG TAB PO SCH (21:42)
[2017-02-16] VITALS (13 sets, daily range): BP systolic 115–124; BP diastolic 67–72; PULSE 64–86; RESP 18–20; TEMP 97.5–97.9; O2SAT 93–95
[2017-02-16] MEDS: ISOSORBIDE MONONITRATE 30 MG TAB PO SCH (06:10)
--- NOTE | 2017-02-16 07:38 | PD.CARD.PN ---
Subjective Subjective Remarks P. Afib VR controlled with med changes. Ambulating. Patient denies CP, SOB or palpitations. Looks more comfortable today. Wants to go home. Objective Medications Current Medications Medications (Trade) Dose Ordered Sig/Lorie Route Start Time Stop Time Status Last Admin (Ecotrin Ec) 81 mg HS PO 02/12/17 21:00 02/15/17 21:42 (Lipitor) 80 mg HS PO 02/12/17 21:00 02/15/17 21:42 (Plavix) 75 mg HS PO 02/12/17 21:00 02/15/17 21:42 ([place] 5-325 Mg) 1 tab Q6H PRN PO 02/12/17 00:45 (Duoneb Neb) 1 ampule Q6HR WHILE AWAKE NEB PRN NEB 02/12/17 00:45 02/15/17 13:35 (Glucophage) 1,000 mg BIDPC PO 02/12/17 09:00 Future Hold 02/12/17 09:55 (Nitrostat Sl) 0.4 mg UNSCH PRN SL 02/12/17 00:45 02/14/17 03:40 (Protonix) 20 mg BID PRN PO 02/12/17 00:45 (Flomax) 0.4 mg DAILY PO 02/12/17 09:00 02/15/17 09:54 (Theragran) 1 tab HS PO 02/12/17 21:00 02/15/17 21:42 Non-Formulary Medication 20 mg HS PO 02/12/17 21:00 Future hold (NS Flush) 2 ml BID IV FLUSH 02/12/17 09:00 02/15/17 21:47 (NS Flush) 2 ml UNSCH PRN IV FLUSH 02/12/17 00:45 (Tylenol) 500 mg Q4H PRN PO 02/12/17 00:45 02/15/17 14:36 (Morphine Inj) 2 mg Q4H PRN IV 02/12/17 01:00 02/14/17 02:52 (NovoLOG SUPPLEMENTAL SCALE) 1 ACHS SLIDING SCALE SQ 02/12/17 08:00 02/15/17 21:43 (D50w (Vial) Inj) 50 ml UNSCH PRN IV PUSH 02/12/17 00:45 (Glucagon Inj) 1 mg UNSCH PRN OTHER 02/12/17 00:45 (Amaryl) 4 mg DAILY@0800,1700 PO 02/12/17 08:00 Future hold 02/15/17 17:28 (KCl) 20 meq TID PO 02/12/17 13:00 02/15/17 17:28 Sodium Chloride 1,000 ml @ 30 mls/hr Q24H IV 02/12/17 11:37 02/17/17 11:36 02/13/17 17:44 (Benadryl) 50 mg TAPPER SHANK PO 02/12/17 11:45 02/16/17 11:44 (fentaNYL INJ) 50 mcg TAPPER SHANK IV PUSH 02/12/17 11:45 02/16/17 11:44 (Versed Inj) 1 mg TAPPER SHANK IV PUSH 02/12/17 11:45 02/16/17 11:44 (Atropine Inj) 0.5 mg UNSCH PRN IV PUSH 02/13/17 09:15 (Zofran Inj) 4 mg Q4H PRN IV PUSH 02/13/17 09:15 (Cozaar) 25 mg HS PO 02/13/17 21:00 Future Hold 02/13/17 21:55 (Coreg) 50 mg BID PO 02/13/17 21:00 02/15/17 21:41 (Bumetanide) 1 mg DAILY PO 02/13/17 10:00 02/15/17 09:54 (Eliquis) 5 mg BID PO 02/14/17 09:00 02/15/17 21:42 (Imdur) 30 mg DAILY@0700 PO 02/15/17 07:00 02/16/17 06:10 (Lanoxin) 0.125 mg DAILY PO 02/15/17 09:00 02/15/17 09:54 (Cordarone) 200 mg Q12HR PO 02/15/17 09:00 02/15/17 21:42 (Cardizem Cd) 120 mg DAILY PO 02/15/17 13:00 02/15/17 13:03 (Colace) 100 mg BID PO 02/15/17 16:15 02/15/17 21:42 (Milk Of Magnesia Liq) 30 ml DAILY PRN PO 02/15/17 16:15 02/15/17 16:45 Vital Signs / I&O Vital Signs Date Time Temp Pulse Resp B/P (MAP) Pulse Ox O2 Delivery O2 Flow Rate FiO2 02/16/17 07:08 97.9 77 20 115/72 (86) 95 02/16/17 07:00 86 02/16/17 03:00 97.5 73 18 124/67 (86) 93 02/15/17 23:00 75 02/15/17 23:00 97.7 81 28 111/63 (79) 94 02/15/17 22:00 70 02/15/17 21:25 96 21 02/15/17 21:00 72 02/15/17 20:00 74 02/15/17 19:00 97.5 77 32 111/64 (80) 92 02/15/17 19:00 77 02/15/17 18:04 71 02/15/17 17:01 79 02/15/17 16:00 74 02/15/17 15:00 97.9 78 16 104/66 (79) 96 02/15/17 15:00 78 02/15/17 14:00 76 02/15/17 13:00 68 02/15/17 12:00 72 02/15/17 11:31 97.1 75 16 109/63 (78) 94 02/15/17 11:00 86 02/15/17 10:00 82 02/15/17 09:00 86 02/15/17 08:08 94 Nasal Cannula 3.00 02/15/17 08:07 97.8 94 16 121/48 (72) 94 02/15/17 08:00 90 I/O 02/15/17 02/15/17 02/15/17 02/16/17 02/16/17 02/16/17 06:59 14:59 22:59 06:59 14:59 22:59 Intake Total 480 ml 166 ml 1071 ml 480 ml Output Total 400 ml 725 ml 700 ml Balance 80 ml 166 ml 346 ml -220 ml Intake Oral 480 ml 1071 ml 480 ml IV Total 166 ml Output Urine Total 400 ml 725 ml 700 ml # Bowel Movements 0 Physical Exam BP stable, afebrile. HR 84 and irregular. No JVD Lungs CTA. Heart; Irreg, S1, S2, no murmur, gallops, rubs. Abd: BS + non-tender. Ext: LE edema improving. Right groin cath site stable no hematoma. Neuro: Non-focal. Laboratory Laboratory Tests Test 02/11/17 22:17 02/12/17 08:06 02/12/17 12:05 02/12/17 15:35 Eosinophils % 3 % Basophils % 2 % Myelocytes 4 % Promyelocytes 1 % Blood Urea Nitrogen 16 MG/DL Creatinine 1.12 MG/DL Random Glucose 194 MG/DL Total Protein 5.2 GM/DL 7.1 GM/DL Albumin 2.7 GM/DL Calcium Level 6.4 MG/DL Alkaline Phosphatase 57 U/L Aspartate Amino Transf (AST/SGOT) 16 U/L Alanine Aminotransferase (ALT/SGPT) 22 U/L Total Bilirubin 0.5 MG/DL Sodium Level 146 MEQ/L Potassium Level 3.3 MEQ/L Chloride Level 112 MEQ/L Carbon Dioxide Level 24.3 MEQ/L B-Type Natriuretic Peptide 112 PG/ML Lipase 175 U/L Differential Total Cells Counted 100 Neutrophils % (Manual) 77 % Band Neutrophils % 13 % Lymphocytes % 5 % Monocytes % 2 % Neutrophils # (Manual) 10.6 TH/MM3 Metamyelocytes 3 % Platelet Estimate NORMAL Platelet Morphology Comment NORMAL Ovalocytes 1+ Acanthocytes 1+ Prothrombin Time 11.5 SEC Prothromb Time International Ratio 1.0 RATIO Protein Corrected Calcium 9.3 MG/DL Total Creatine Kinase 1407 U/L Creatine Kinase MB 162.2 NG/ML Creatine Kinase MB % 11.5 % Troponin I GREATER THAN 40.00 NG/ML Test 02/13/17 02:09 02/13/17 11:45 02/15/17 05:12 White Blood Count 10.6 TH/MM3 Red Blood Count 4.72 MIL/MM3 Hemoglobin 12.8 GM/DL Hematocrit 38.5 % Mean Corpuscular Volume 81.6 FL Mean Corpuscular Hemoglobin 27.2 PG Mean Corpuscular Hemoglobin Concent 33.3 % Red Cell Distribution Width 15.8 % Platelet Count 149 TH/MM3 Mean Platelet Volume 9.0 FL Neutrophils (%) (Auto) 81.8 % Lymphocytes (%) (Auto) 8.9 % Monocytes (%) (Auto) 8.5 % Eosinophils (%) (Auto) 0.4 % Basophils (%) (Auto) 0.4 % Neutrophils # (Auto) 8.7 TH/MM3 Lymphocytes # (Auto) 0.9 TH/MM3 Monocytes # (Auto) 0.9 TH/MM3 Eosinophils # (Auto) 0.0 TH/MM3 Basophils # (Auto) 0.0 TH/MM3 CBC Comment DIFF FINAL Differential Comment Activated Partial Thromboplast Time 40.2 SEC Triglycerides Level 179 MG/DL Cholesterol Level 109 MG/DL LDL Cholesterol 36 MG/DL HDL Cholesterol 37.4 MG/DL Cholesterol/HDL Ratio 2.91 RATIO Urine Color LIGHT-YELLOW Urine Turbidity CLEAR Urine pH 5.0 Urine Specific [place] 1.015 Urine Protein NEG mg/dL Urine Glucose (UA) NEG mg/dL Urine Ketones NEG mg/dL Urine Occult Blood NEG Urine Nitrite NEG Urine Bilirubin NEG Urine Urobilinogen LESS THAN 2.0 MG/DL Urine Leukocyte Esterase NEG Urine WBC LESS THAN 1 /hpf Urine Hyaline Casts 1 /lpf Urine Mucus FEW /lpf Microscopic Urinalysis Comment CULT NOT INDICATED Blood Urea Nitrogen 29 MG/DL Creatinine 1.38 MG/DL Random Glucose 187 MG/DL Calcium Level 8.0 MG/DL Magnesium Level 2.0 MG/DL Sodium Level 140 MEQ/L Potassium Level 4.2 MEQ/L Chloride Level 103 MEQ/L Carbon Dioxide Level 30.0 MEQ/L Anion Gap 7 MEQ/L Estimat Glomerular Filtration Rate 50 ML/MIN Imaging Last 24 hours Impressions Chest X-Ray 02/15/17 1340 Signed Impressions: Service Date/Time: Wednesday, February 15, 2017 13:40 - CONCLUSION: Improving CHF/volume overload. Possible small right-sided effusion. Buster Sheridan MD Assessment and Plan Problem List: (1) NSTEMI (non-ST elevated myocardial infarction) ICD Codes: I21.4 - Non-ST elevation (NSTEMI) myocardial infarction (2) Stented coronary artery ICD Codes: Z95.5 - Presence of coronary angioplasty implant and graft (3) Paroxysmal atrial fibrillation with rapid ventricular response ICD Codes: I48.0 - Paroxysmal atrial fibrillation (4) Paroxysmal atrial flutter ICD Codes: I48.92 - Unspecified atrial flutter (5) Hypertensive cardiovascular disease ICD Codes: I11.9 - Hypertensive cardiovascular disease Status: Acute (6) CAD (coronary artery disease) ICD Codes: I25.9 - CAD (coronary artery disease) Status: Chronic (7) Hyperlipidemia ICD Codes: E78.5 - Hyperlipidemia Status: Chronic (8) Type 2 diabetes mellitus ICD Codes: E11.9 - Type 2 diabetes mellitus without complications Status: Chronic (9) Stage 3 chronic kidney disease ICD Codes: N18.3 - Chronic kidney disease, stage 3 (moderate) Status: Chronic (10) Obesity ICD Codes: E66.9 - Obesity, unspecified (11) Ischemic cardiomyopathy ICD Codes: I25.5 - Ischemic cardiomyopathy Assessment and Plan CV stable. OK for discharge today on all current PO meds/doses. Discussed treatment plans with patient.F/U in my office 1-2 weeks. Will assess rhythm and medications at that time and make adjustments as needed. Thank you. Code Status Full Discussed Condition With Patient and clinical staff educator. Leland Negron MD Feb 16, 2017 07:38
[2017-02-16] MEDS: INSULIN ASPART SUPPLEMENTAL SCALE SQ SCH (08:00)
[2017-02-16] MEDS: SODIUM CHLORIDE 0.9% FLUSH 10 ML FLUSH IV FLUSH SCH (09:00)
[2017-02-16] MEDS: DILTIAZEM-CD 120 MG CAP ER PO SCH (09:07)
[2017-02-16] MEDS: APIXABAN 5 MG TABLET PO SCH (09:07)
[2017-02-16] MEDS: DOCUSATE SODIUM 100 MG CAP PO SCH (09:07)
[2017-02-16] MEDS: TAMSULOSIN HCL 0.4 MG CAP PO SCH (09:07)
[2017-02-16] MEDS: GLIMEPIRIDE 4 MG TAB PO SCH (09:07)
[2017-02-16] MEDS: BUMETANIDE 1 MG TAB PO SCH (09:08)
[2017-02-16] MEDS: CARVEDILOL 12.5 MG TAB PO SCH (09:08)
[2017-02-16] MEDS: DIGOXIN 0.125 MG TAB PO SCH (09:08)
[2017-02-16] MEDS: AMIODARONE 200 MG TAB PO SCH (09:08)
[2017-02-16] MEDS: POTASSIUM CHLORIDE 20 MEQ CONTROLLED RELEASE TAB PO SCH (09:08)
--- NOTE | 2017-02-16 09:45 | HHI.DCPOC ---
Discharge Care Plan Diagnosis: (1) Chest pain (2) CAD (coronary artery disease) (3) Type 2 diabetes mellitus (4) Paroxysmal atrial fibrillation with rapid ventricular response Goals to Promote Your Health * To prevent worsening of your condition and complications * To maintain your health at the optimal level Directions to Meet Your Goals Take your medications as prescribed Follow your dietary instruction Follow activity as directed Keep your appointments as scheduled Take your immunizations and boosters as scheduled If your symptoms worsen call your PCP, if no PCP go to Urgent Care Center or Emergency Room Smoking is Dangerous to Your Health. Avoid second hand smoke Call the 24-hour hour crisis hotline for domestic abuse at Annette Cevallos Feb 16, 2017 09:45
[2017-02-16] MEDS ORDERED: APIX5TAB PO (09:54)
[2017-02-16] MEDS ORDERED: ISOS30TA3 PO (09:54)
[2017-02-16] MEDS ORDERED: CARV12.5 PO (09:54)
[2017-02-16] MEDS ORDERED: DIGO0.12 PO (09:54)
[2017-02-16] MEDS ORDERED: BUME1TAB PO (09:54)
--- NOTE | 2017-02-16 09:57 | HHI.DS ---
Discharge Summary Admission Date Feb 12, 2017 at 09:54 Discharge Date: Feb 16, 2017 Admitting Diagnosis CP R/O AL, TACHYCARDIA, FREQUENT PVC'S (1) Chest pain ICD Codes: R07.9 - Chest pain, unspecified Status: Acute (2) CAD (coronary artery disease) ICD Codes: I25.9 - CAD (coronary artery disease) Status: Chronic (3) Tachycardia ICD Codes: R00.0 - Tachycardia, unspecified (4) HTN (hypertension) ICD Codes: I10 - HTN (hypertension) Status: Chronic (5) Hyperlipidemia ICD Codes: E78.5 - Hyperlipidemia Status: Chronic (6) Type 2 diabetes mellitus ICD Codes: E11.9 - Type 2 diabetes mellitus without complications Status: Chronic Consultants Dr. Negron Procedures cardiac catheterization 02/13/17 with stent to the circumflex Brief History This is an 81 year old male patient with a past medical history which includes: type 2 diabetes mellitus and takes oral agents for this, hypertension, hyperlipidemia, Gastroesophageal reflux disease, BPH, Erectile dysfunction s/p penile implant, osteoarthritis, Lumbar disc disease and stenosis and also CAD with the coronary artery bypass grafting in 1993. He had a cardiac catheterization on 02/10/2014 that showed patent MEDRANO and right internal mammary graft to the LAD and right coronary artery, respectively. He had occluded saphenous vein Y grafts to the ramus intermedius, diagonal branch and posterior ventricular branches of the circumflex. He has been followed by Cardiology and treated with medical management for any angina. Patient was recently admitted and diagnosed with restrictive lung disease 12/30/16 - . Patient presents to the ER last night due to chest pain. Patient reports that the pain initially started in his pelvic region then radiated to his chest. Patient reports that the chest pain was located substernal area 10/10 at its worse, now down to 1/10, after nitroglycerin paste. Patient endorses associated SOB, diaphoresis with nausea but no vomiting last night that has since resolved. CBC/BMP: 02/13/17 0209 02/15/17 0512 Significant Findings Laboratory Tests Test 02/13/17 11:45 02/14/17 05:02 02/15/17 05:12 02/16/17 06:30 Urine Mucus FEW /lpf (OCC) Blood Urea Nitrogen 27 MG/DL (7-18) 29 MG/DL (7-18) Creatinine 1.42 MG/DL (0.60-1.30) 1.38 MG/DL (0.60-1.30) Random Glucose 215 MG/DL (74-106) 187 MG/DL (74-106) Calcium Level 8.3 MG/DL (8.5-10.1) 8.0 MG/DL (8.5-10.1) Estimat Glomerular Filtration Rate 48 ML/MIN (>89) 50 ML/MIN (>89) Imaging Last Impressions Chest X-Ray 02/15/17 1340 Signed Impressions: Service Date/Time: Wednesday, February 15, 2017 13:40 - CONCLUSION: Improving CHF/volume overload. Possible small right-sided effusion. Buster Sheridan MD Renal Ultrasound 02/13/17 0000 Signed Impressions: Service Date/Time: February 11:23 - CONCLUSION: Ultrasound appearance of the kidneys and urinary bladder within normal limits. Nonspecific splenomegaly. Kenney Wilson MD PE at Discharge GENERAL: This is a well-nourished, well-developed patient, in no apparent distress at this time CARDIOVASCULAR: Irregularly irregular RESPIRATORY: crackles at lung bases GASTROINTESTINAL: Abdomen soft, non-tender, nondistended. MUSCULOSKELETAL: Extremities without clubbing, cyanosis, or edema. No joint tenderness, effusion, or edema noted. No calf tenderness. Negative Homans sign bilaterally. NEUROLOGICAL: Awake and alert. No focal deficits noted. Motor and sensory grossly within normal limits. Five out of 5 muscle strength in all muscle groups. Normal speech. Hospital Course Chest pain with a history of CAD s/p CABG x5 1993 NSTEMI initial EKG reveals RBBB left anterior fascicular block and tachycardia initial troponin <0.02 repeat troponin 38.90 nitroglycerin paste applied cardiology consulted, discussed with cardiology Dr. Negron request heparin drip and NPO after midnight for cardiac cath in AM Patient also on aspirin daily continue patient's home Coreg, Lipitor, Imdur 60 mg PO daily and Plavix lipid profile reviewed and reveals LDL of 36 Patient s/p cardiac catheterization 02/13/17 with stent placed to the circumflex continue on Plavix daily A Fib/A Flutter RVR- rate up to 160 bpm seen on EKG 02/149 - now rate controlled. Telemetry (02/15): Afib 60-70 - Comanagement with cardiology - PO amiodarone 200mg PO BID Per cardiology, cardiology to adjust dosage at upcoming out patient appointment - po digoxin - digoxin level 02/16 1.1 - Coreg 50mg BID - Cardizem 30mg TID --> convert to long acting - Pt started on Eliquis (triple anticoagulation therapy) per cardiology - observe telemetry - ventricular rate improved and patient cleared for DC per cardiology Suprapubic pain with urination UA reviewed neg leukocyte esterase no culture indicated renal US reviewed ultrasound appearance of the kidneys and urinary bladder within normal limits. Nonspecific splenomegaly. - Suspect patient's suprapubic pain is related to paroxysmal atrial fibrillation HTN - coreg, cardizem Hyperlipemia continue patient's home Lipitor LDL 36 DM type 2 - resume Amaryl - hold metformin - SSI DVT prophylaxis patient on Eliquis There was concern and discussion regarding patient's prescription for DC as the [facility] pharmacy is not open on Friday. Initially patient requested prescriptions be sent to [facility] pharmacy and he had planned on just skipping the evening doses. skipping the evening doses was strongly discouraged. Offered to patient to allow him to stay till he received the evening dosages than DC- patient refused. It was decided that patient would fill only the BID prescriptions at [facility] this evening then last picker the rest of the medications tomorrow at [facility]. Pt Condition on Discharge: Stable Discharge Disposition: Discharge Home Discharge Instructions DIET: Follow Instructions for: Heart Healthy Diet, Diabetic Diet Activities you can perform: Regular-No Restrictions Follow up Referrals: Cardiology - [address] Negron PCP Follow-up - [address] Smalls New Medications: Amiodarone (Amiodarone) 200 Mg Tab 200 MG PO Q12HR for A fib, heart rate, #28 TAB 0 Refills Apixaban (Eliquis) 5 Mg Tab 5 MG PO BID for Blood Clot Prevention, #60 TAB 0 Refills Bumetanide (Bumetanide) 1 Mg Tab 1 MG PO DAILY for fluid retention, #30 TAB 0 Refills Carvedilol (Coreg) 12.5 Mg Tab 50 MG PO BID for heart rate, heart, #60 TAB 0 Refills Digoxin (Digoxin) 0.125 Mg Tab 0.125 MG PO DAILY for A Fib, #30 TAB 0 Refills Isosorbide Mononitrate ER (Isosorbide Mononitrate ER) 30 Mg Dilan 30 MG PO DAILY@0700 for heart, #30 TAB 0 Refills Continued Medications: Aspirin DR (Aspirin EC) 81 Mg Tabdr 81 MG PO HS, TAB 0 Refills Atorvastatin (Atorvastatin) 80 Mg Tab 80 MG PO HS for Cholesterol Management, #30 TAB 0 Refills Clopidogrel (Clopidogrel) 75 Mg Tab 75 MG PO HS for Blood Clot Prevention, #30 TAB 0 Refills Coenzyme Q10 (Ubidecarenone) (Coq-10 Tr) 100 Mg Cap 2 TAB PO EVENING Garlic (Garlic Oil 1000) 1,000 Mg Cap 1 CAP PO HS Glimepiride (Glimepiride) 4 Mg Tab 4 MG PO BIDAC for Blood Sugar Management, #60 TAB 0 Refills Glucosamine-Chondroitin (Glucosamine-Chondroitin) 500-400 Mg Tab 1 TAB PO DAILY for Herbal Supplements, TAB 0 Refills Hydrochlorothiazide (Hydrochlorothiazide) 12.5 Mg Cap 12.5 MG PO HS, #30 CAP 0 Refills Hydrocodone-Acetaminophen (Hydrocodone-Acetaminophen) 5-325 mg Tab 1 TAB PO Q6H PRN for PAIN, TAB 0 Refills Ipratropium-Albuterol Neb (Duoneb) 0.5-2.5 Mg/3 Ml Neb 1 AMPULE NEB Q6HR WHILE AWAKE NEB PRN for wheezing or shortness of breah for 30 Days, #120 ML 1 Refill Krill Oil (Krill Oil Rio-3 500 mg) 500 Mg-115 Mg-30 Mg-64 Mg-167 Mg Cap 1 TAB PO DAILY Lactobacillus Rhamnosus (GG) (Culturelle) 10 Billion Cell Cap 1 CAP PO DAILY for Nutritional Supplement, CAP 0 Refills Metformin (Metformin) 1,000 Mg Tab 1000 MG PO BIDPC for Blood Sugar Management, #60 TAB 0 Refills With meals Multiple Vitamin (Multiple Vitamin) 1 Tab 1 TAB PO HS for Nutritional Supplement, TAB 0 Refills Nitroglycerin SL (Nitroglycerin SL) 0.4 Mg Subl 0.4 MG SL DIRECTED PRN for CHEST PAIN, #100 TAB.SL 0 Refills ONE TABLET UNDER THE TONGUE NEEDED FOR CHEST PAIN, MAY REPEAT EVERY FIVE MINUTES FOR A TOTAL OF 3 DOSES OR CALL 911 IF NO RELIEF Rabeprazole (Aciphex) 20 Mg Tab 20 MG PO BID PRN for INDIGESTION, #30 TAB 0 Refills Suvorexant (Belsomra) 20 Mg Tab 20 MG PO HS for Provide Good Sleep, #30 TAB 0 Refills Discontinued Medications: Carvedilol (Coreg) 25 Mg Tab 25 MG PO BID, #60 TAB 0 Refills Isosorbide Mononitrate ER (Isosorbide Mononitrate ER) 60 Mg Tab 60 MG PO DAILY for Prevent Chest Pain, #30 TAB 0 Refills Losartan (Losartan) 50 Mg Tab 50 MG PO HS for Blood Pressure Management, #30 TAB 0 Refills Additional Information Patient examined. Assessment and plan formulated with Annette Cevallos PA-C. I agree with the above. Annette Cevallos Feb 16, 2017 09:57 Marco Rueda DO Feb 17, 2017 22:31
[2017-02-16] MEDS ORDERED: AMIO200T PO (10:52)
--- NOTE | 2017-02-16 10:53 | HHI.FF ---
Face to Face Verification Diagnosis: (1) Paroxysmal atrial fibrillation with rapid ventricular response (2) CAD (coronary artery disease) (3) Type 2 diabetes mellitus (4) Stage 3 chronic kidney disease Physical Therapy Order: Evaluate and Treat, Improve ambulation, Strength and gait training Home Health Nursing Order: Medical education Signs/symptoms of disease process Medication education-adverse effect Nursing assessment with vital signs Instructions: obtain BMP, mag on 02/19/17 and fax results to Dr. Salmeron and Dr. Caroline Smalls I have seen patient Philip Elliott on 02/16/17. My clinical findings support the need for the requested home health care services because: Ltd mobility - disease progression Deconditioned w/ increased weakness Med compliance is questionable Limited ability to care for self Need for psychosocial assistance I certify that my clinical findings support that this patient is homebound because: Impaired cognitive ability/safety Unsafe to leave home unassisted Need for psychosocial assistance Unable to use public transportation Marco Rueda DO Feb 16, 2017 10:53
--- NOTE | 2017-02-16 11:12 | RADRPT ---
EXAM DATE/TIME: 02/16/2017 10:33 [place] COMPARISON: CHEST PA & LAT, February 09, 2014, 23:02. INDICATIONS : Short of Breath MEDICAL HISTORY : Congestive heart failure. Cardiovascular disease. SURGICAL HISTORY : CABG. ENCOUNTER: Initial ACUITY: 2 days PAIN SCORE: 0/10 LOCATION: Bilateral chest FINDINGS: The chest is stable in appearance. The lungs remain hypoaerated with mild interstitial prominence. Postsurgical changes from prior CABG are again noted. There is no evidence of developing pulmonary edema or consolidating infiltrate. CONCLUSION: Restrictive lung disease with hypoaeration and interstitial prominence. No evidence of acute pulmonary edema or consolidating airspace disease. Status post CABG. Alcides Anthony MD on February 16, 2017 at 11:09 Board Certified Radiologist. This report was verified electronically.
--- NOTE | 2017-02-16 13:17 | EKG ---
Date Performed: 02/15/2017 Time Performed: 08:18:46 PTAGE: 81 years EKG: Atrial fibrillation Right bundle branch block Left axis deviation Since previous tracing, n o significant change noted Abnormal ECG PREVIOUS TRACING : 02/15/2017 06.23 DOCTOR: Marco Antonio Stephenson Interpretating Date/Time 02/16/2017 13:16:47
== END 2017-02-16 12:30 | disposition home health service (06) | DRG 247 ==
LOC: NEPC 22:10 → UNDOADMIN 02-12 00:26 → NEDA 02-12 00:26 → INTOOBSV 02-12 00:40 → NEDA 02-12 00:40 → NEDH 02-12 00:49 → OBSVTOIN 02-12 09:54 → HCIS 02-12 13:46
PROVIDERS: ADMIT Hospitalist; ATTEND Hospitalist
PROC: 4A023N7 Measurement of Cardiac Sampling and Pressure, Left Heart, Percutaneous Approach (ICD-10-PCS; 2017-02-13)
PROC: B2121ZZ Fluoroscopy of Single Coronary Artery Bypass Graft using Low Osmolar Contrast (ICD-10-PCS; 2017-02-13)
PROC: B2111ZZ Fluoroscopy of Multiple Coronary Arteries using Low Osmolar Contrast (ICD-10-PCS; 2017-02-13)
PROC: B2181ZZ Fluoroscopy of Left Internal Mammary Bypass Graft using Low Osmolar Contrast (ICD-10-PCS; 2017-02-13)
PROC: B2171ZZ Fluoroscopy of Right Internal Mammary Bypass Graft using Low Osmolar Contrast (ICD-10-PCS; 2017-02-13)
PROC: B2151ZZ Fluoroscopy of Left Heart using Low Osmolar Contrast (ICD-10-PCS; 2017-02-13)
PROC: 027034Z Dilation of Coronary Artery, One Artery with Drug-eluting Intraluminal Device, Percutaneous Approach (ICD-10-PCS; principal; 2017-02-13 07:15)
DX: I21.4 Non-ST elevation (NSTEMI) myocardial infarction (principal); E11.22 Type 2 diabetes mellitus with diabetic chronic kidney disease; I50.30 Unspecified diastolic (congestive) heart failure; E88.81 Metabolic syndrome and other insulin resistance; I48.92 Unspecified atrial flutter; I13.0 Hypertensive heart and chronic kidney disease with heart failure and stage 1 through stage 4 chronic kidney disease, or unspecified chronic kidney disease; I25.810 Atherosclerosis of coronary artery bypass graft(s) without angina pectoris; I45.2 Bifascicular block; N18.3 Chronic kidney disease, stage 3 (moderate); I48.0 Paroxysmal atrial fibrillation; E78.5 Hyperlipidemia, unspecified; K21.9 Gastro-esophageal reflux disease without esophagitis; I25.119 Atherosclerotic heart disease of native coronary artery with unspecified angina pectoris; I25.5 Ischemic cardiomyopathy; E66.9 Obesity, unspecified; Z68.33 Body mass index [BMI] 33.0-33.9, adult; Z87.891 Personal history of nicotine dependence; Z79.84 Long term (current) use of oral hypoglycemic drugs; Z91.14 Patient's other noncompliance with medication regimen; Z91.19 Patient's noncompliance with other medical treatment and regimen
CPT/HCPCS: 71010; 71020; 76775; 80048; 80053; 80061; 80162; 81001; 82550; 82552; 82948; 83690; 83735; 83880; 84132; 84155; 84484; 85002; 85007; 85025; 85027; 85610; 85730; 92928; 93005; 93459; 94150; 94620; 94640; 94664; 96365; 96375; 96376; 99152; 99153; C1725; C1760; C1769; C1874; C1887; C1893; G0269; J0153; J0282; J0610; J1160; J1170; J1644; J1650; J1815; J2250; J2270; J2405; J3010; J3475; J7030; J7060; Q9967

== ENCOUNTER → 2017-03-21 | Outpatient (CLI) | payer MEDICARE ==
[~2017-03-21] MED LIST changes: +AMIO200T PO; +APIX5TAB PO; +BUME1TAB PO; +CARV12.5 PO; -CORE25TA PO; -CRANPOW2 PO; +DIGO0.12 PO; +ISOS30TA3 PO; -ISOS60TA PO; -LOSA50TA PO; -NEBUKIT5 OROPHARYNG; -PRED10 PO; -TAMS0.4C4 PO
[2017-03-21 14:41] LABS: BLOOD GAS CARBOXYHEMOGLOBIN 1.3 % (0-4); BLOOD GAS HCO3 28 mmol/L (22-26); BLOOD GAS METHEMOGLOBIN 1.1 % (0-2); BLOOD GAS O2 HGB SATURATION 92 % (90-100); BLOOD GAS OXYGEN CONTENT 14.6 Vol % (12.0-20.0); BLOOD GAS PCO2 44 mmHg (38-42); BLOOD GAS PO2 72 mmHg (61-120); BLOOD GAS TOTAL HGB 11.3 G/DL (12.0-16.0); CRITICAL VALUE NO; DRAW SITE RT RADIAL; FIO2 21 %; NUMBER OF ARTERIAL PUNCTURES 1; STAT NO; TEMP CORR TO 98.6; ULNAR PULSE PRESENT
--- NOTE | 2017-03-25 09:26 | RSPPFT ---
DATE OF PROCEDURE: 03/21/17 COMMENTS: Spirometry shows FVC of 1.6 at 38% of predicted, FEV1 of 1.2 at 37%, FEV1/FVC ratio is normal. Flow is decreased at FEF 25, FEF 50, FEF 75 and FEF 25-75. There is no response after bronchodilator treatment. Lung volumes show residual volume is decreased. TLC is normal. Diffusion capacity is normal when corrected for lung volume. Flow volume loop indicates a restrictive pattern. Room air arterial blood gases show pH of 7.42, PCO2 of 44, PO2 of 72, BiCarb of 28 and O2 Saturation at 92%. IMPRESSION: 1. Small airways obstructive lung disease. 2. Restrictive lung disease is also present. 3. Decreased lung volumes. 4. Diffusion is normal when corrected for lung volume. 5. Blood gases show mild hypoxia.
== END ==
LOC: HRSP 13:07
PROVIDERS: ATTEND Specialist
DX: J44.9 Chronic obstructive pulmonary disease, unspecified (principal)
CPT/HCPCS: 36600; 82805; 94060; 94726; 94729